=== PATIENT | female | born 2005 | race Caucasian/White ===

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

== ENCOUNTER 2024-03-20 09:50 | Observation (INO) ==
--- NOTE | 2024-03-20 10:09 | Emergency Department Note ---
Impression & Plan Transaminitis Admission ED Provider Note HPI: History obtained from patient. The patient is a 18-year-old female with history of metabolic syndrome, hypertension, ADHD, presents the emergency department with a chief complaint of epigastric abdominal pain that began at 6 AM today. Patient denies any nausea or vomiting. Patient states the pain was acute in onset and she has not had similar pain in the past. Patient states she is currently on Wegovy and recently did have an up titration in her dose. On arrival here to the ED the patient is hypertensive but otherwise hemodynamically stable. Patient does note that she had a ultrasound performed of her gallbladder last month through [facility] that showed evidence of gallstones. ROS: - Per HPI Differential Diagnosis: Acute cholecystitis, choledocholithiasis, acute gastritis, acute pancreatitis, acute appendicitis, viral gastroenteritis, amongst other potential pathologies. *Outpatient medications and allergy history reviewed. PE: General: Alert, morbidly obese HEENT: Normocephalic, trachea midline Eyes: Extraocular eye movement is intact, no scleral erythema Pulmonary: Clear to auscultation bilaterally, no wheezing Cardio: Regular rate and rhythm GI: Abdomen is soft to palpation, there is moderate tenderness in the epigastric area to palpation without guarding or rigidity : No suprapubic tenderness MSK: No evidence of trauma or malformation of the extremities, no edema Skin: No evidence of rash Neuro: Alert, no focal deficits Psychiatric: Cooperative INDEPENDENT INTERPRETATIONS: case monitor: (As interpreted by myself): - An order was placed for continuous cardiac monitoring - Patient was noted to be in sinus rhythm with rate of 90 Interventions provided in ED: -IV morphine, IV Zofran Medical Decision Making: IV was established and lab work obtained, patient was placed on quality assurance monitor body. Lab work shows no leukocytosis, hemoglobin is normal, platelet count is normal, CMP does not show any evidence of any critical electrolyte abnormalities, bilirubin is elevated at 1.3 and there is a transaminitis with AST of 218, ALT of 157, and alk phos at 109. Lipase is noted to be normal. Urinalysis is nonspecific for infection. CT imaging of the abdomen pelvis was obtained and shows questionable acute cholecystitis. General surgery was contacted and the case was discussed with the on-call midlevel provider, Prema Olivas PA-C, and patient was evaluated at the bedside by Dr. Tripp Nava. Following discussion with general surgery, the patient will be admitted to the medicine service for further workup and to determine whether or not operative intervention will be required. There is no biliary ductal dilatation noted on CT imaging. General surgery will order an ultrasound, they requested admission to the medicine service and therefore case was discussed with Dr. Johnson. Patient was placed for admission in stable condition for further care. Consultants/Discussions held with other healthcare providers: -Dr. Johnson, Hospitalist -Dr. Tripp Nava, General Surgery Disposition discussion held by myself with: -Patient Diagnosis: 1. Epigastric abdominal pain, acute 2. Transaminitis, acute 3. Elevated bilirubin, acute 4. 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 Social History Smoking Status: Never smoker Second Hand Exposure: Yes (mom smokes); Do You Dip or Chew Tobacco: No; Hx Alcohol Use: No Hx Substance Use: No Preferred Language: Salvadorean Communication Ability: Effective Visual Impairment: No Limitations Hearing Ability: Normal Bed Manager Required: No marital status: Single Current Living Situation: Family Current Living Situation Comment: mom/dad/ older brother Feels Safe at Home: Yes Childhood Exposure to Second-Hand Smoke: No Dental Care, Regularly: Yes Seatbelt Use: always Sunscreen Use: Yes Allergies Allergies Allergy/AdvReac Type Severity Reaction Status Date / Time No Known Allergies Allergy Verified 03/20/24 12:16 Home Meds Home Medications Medication Instructions Recorded Confirmed apple cider vinegar 500 mg tablet 500 mg PO DAILY 07/23/20 03/20/24 clonidine HCl 0.2 mg tablet 0.2 mg PO DAILY 03/20/24 03/20/24 ergocalciferol (vitamin D2) 1,250 50,000 unit PO WK 03/20/24 03/20/24 mcg (50,000 unit) capsule ibuprofen 200 mg tablet 200 mg PO Q6H PRN Pain 03/20/24 03/20/24 levothyroxine 100 mcg tablet 100 mcg PO DAILY 03/20/24 03/20/24 multivitamin 1 tab PO DAILY 03/20/24 03/20/24 norethindrone (contraceptive) 0.35 0.35 mg PO DAILY 03/20/24 03/20/24 mg tablet semaglutide (weight loss) 0.5 0.5 mg subcut WK 03/20/24 03/20/24 mg/0.5 mL subcutaneous pen injector (Wegovy) Results & Data (ED) Vital Signs Vital Signs - 24 hr 03/20/24 09:51 03/20/24 10:39 03/20/24 11:45 Temperature 36.6 C Temperature Source Temporal Artery Scan Pulse Rate 87 86 Pulse Rate [Finger] 90 Respiratory Rate 18 17 18 Respiratory Effort / Characteristics Non-Labored Respiratory Depth Normal Respiratory Pattern Regular Blood Pressure 185/97 H Blood Pressure [Left Arm] 180/93 H Blood Pressure Mean 126 Blood Pressure Mean [Left Arm] 122 Blood Pressure Position [Left Arm] Sitting Pulse Oximetry 99 99 98 Oxygen Delivery Method Room Air Room Air Sepsis Recent Fever Within 48 Hours No Sepsis New/Unexplained Change in Mental Status N/A Sepsis Action Taken by Nursing No Action Required 03/20/24 13:06 Temperature Temperature Source Pulse Rate 88 Pulse Rate [Finger] Respiratory Rate Respiratory Effort / Characteristics Respiratory Depth Respiratory Pattern Blood Pressure Blood Pressure [Left Arm] Blood Pressure Mean Blood Pressure Mean [Left Arm] Blood Pressure Position [Left Arm] Pulse Oximetry Oxygen Delivery Method Sepsis Recent Fever Within 48 Hours Sepsis New/Unexplained Change in Mental Status Sepsis Action Taken by Nursing Laboratory Data 03/20/24 10:31 03/20/24 10:31 Lab Results 03/20/24 03/20/24 Range/Units 10:31 10:58 WBC 10.75 (4.8-10.8) K/ul RBC 4.63 (4.20-5.40) M/uL Hgb 14.5 (12.0-16.0) g/dl Hct 42.4 (37.0-47.0) % MCV 91.6 (80.0-100.0) fL MCH 31.3 (25.0-34.0) pg MCHC 34.2 (32.0-36.0) g/dL RDW Std Deviation 41.4 (36.4-46.3) fL RDW Coeff of Saritha 12.4 (11.5-14.5) % Plt Count 273 (130-400) K/uL MPV 10.6 (9.4-12.4) fL Immature Gran % (Auto) 0.2 % Neut % (Auto) 83.9 % Lymph % (Auto) 10.9 % Woods % (Auto) 4.5 % Eos % (Auto) 0.2 % Baso % (Auto) 0.3 % Neut # (Auto) 9.03 H (1.40-6.50) K/uL Lymph # (Auto) 1.17 L (1.20-3.40) K/uL Woods # (Auto) 0.48 (0.11-0.59) K/uL Eos # (Auto) 0.02 (0.00-0.50) K/uL Baso # (Auto) 0.03 (0.00-0.20) K/uL Immature Gran # (Auto) 0.02 (0.01-0.20) K/uL Sodium 142 (136-145) mmol/L Potassium 3.7 (3.5-5.1) mmol/L Chloride 105 (98-107) mmol/L Carbon Dioxide 27 (21-32) mmol/L Anion Gap 10 (3-11) BUN 9 (6-23) mg/dl Creatinine 0.74 (0.6-1.2) mg/dl Est Cr Clr Drug Dosing 210.8 ml/min eGFR 119.45 BUN/Creatinine Ratio 12.2 (10-20) Glucose 150 H (70-99(Fasting)) mg/dl Calcium 10.0 (8.6-10.3) mg/dl Total Bilirubin 1.3 H (0.2-1.0) mg/dl AST 218 H (13-39) U/L ALT 157 H (7-52) U/L Alkaline Phosphatase 109 H (34-104) U/L Total Protein 8.5 H (6.0-8.3) gm/dl Albumin 4.7 (3.4-5.0) gm/dl Globulin 3.8 (2.5-4.0) gm/dl Albumin/Globulin Ratio 1.2 (0.9-2) Lipase 18 (11-82) U/L Urine Color Dark Yellow Urine Appearance Cloudy A (Clear) Urine pH 6.0 (4.5-7.5) Ur Specific [place] 1.025 (1.000-1.030) Urine Protein Negative (Negative) Urine Glucose (UA) Negative (Negative) Urine Ketones Trace H (Negative) Urine Blood Negative (Negative) Urine Nitrite Negative (Negative) Urine Bilirubin 1+ H (Negative) Urine Urobilinogen Positive H (Negative) Ur Leukocyte Esterase 1+ H (Negative) Urine WBC (Auto) 6-10 H (0-5) /hpf Urine RBC (Auto) 0-2 (0-2) /hpf U Hyaline Cast (Auto) 0-2 (0-2) /lpf U Epithel Cells (Auto) 6-10 H (0-2) /hpf Urine Bacteria (Auto) 2+ H (None Seen) Administered Medications Discontinued Medications Sodium Chloride (Nss) 1,000 mls @ 999 mls/hr IV .Q1H1M STA Stop: 03/20/24 11:07 Last Infusion: 03/20/24 11:48 Dose: Infused Documented By: Admin: 03/20/24 10:35 Dose: 999 mls/hr Documented By: LYNDSEY Ioversol (Optiray 320 100ml) 94 ml IV ONCE ONE Stop: 03/20/24 11:15 Last Admin: 03/20/24 11:14 Dose: 94 ml Documented By: ZAIRE Morphine Sulfate (Morphine Sulfate 4 Mg/Ml 1 Ml Carp\Vial) 4 mg IV NOW STA Stop: 03/20/24 11:36 Last Admin: 03/20/24 11:41 Dose: 4 mg Documented By: CEF Ondansetron HCl (Ondansetron Inj 2 Mg/Ml 2 Ml Vial) 4 mg IV NOW STA Stop: 03/20/24 11:36 Last Admin: 03/20/24 11:40 Dose: 4 mg Documented By: CEF Imaging Data Radiologist's Impression: Abdomen/Pelvis CT 03/20/24 10:07 CT OF THE ABDOMEN AND PELVIS WITH CONTRAST CLINICAL HISTORY: Epigastric abdominal pain. COMPARISON STUDY: Right upper quadrant ultrasound January 16, 2019. KUB July 22, 2021. TECHNIQUE: Following IV administration of 94 mL of Optiray, axial images of the abdomen and pelvis were obtained from the lung bases to the proximal femurs. Images were reviewed in the axial, sagittal, and coronal planes. IV contrast was administered without complication. Automated exposure control was utilized for the study. A dose lowering technique was utilized adhering to the principles of ALARA. CT DOSE: 1774.75 mGy.cm FINDINGS: Lung bases are unremarkable. No pneumatosis, free air or portal venous gas is present. There is probable hepatic steatosis. There is no biliary or pancreatic ductal dilatation. Spleen and adrenal glands, kidneys and pancreas are unremarkable. There is no hydronephrosis. The gallbladder is mildly distended. There is mild pericholecystic stranding. The appendix is normal. The caliber and wall thickness of small and large bowel are normal. Major vasculature is patent. There is no lymphadenopathy. The ovaries are not significantly enlarged. Major vasculature is patent. IMPRESSION: 1. Mild gallbladder distention and mild pericholecystic stranding. Acute cholecystitis cannot be excluded. Right upper quadrant ultrasound is recommended for further evaluation. 2. Normal appendix. No bowel obstruction. No bowel wall thickening. ACT 112: Negative or not required by law. Electronically signed by: Renny Nuñez M.D. 03/20/2024 11:44 AM Liver Ultrasound 03/20/24 12:09 US liver CLINICAL HISTORY: eval cholecystitis COMPARISON STUDY: Right upper quadrant ultrasound January 16, 2019. CT of the abdomen and pelvis March 20, 2024. TECHNIQUE: Sonography of the right upper quadrant was performed. FINDINGS: Hepatic echogenicity is increased. No hepatic lesions are identified. The gallbladder is mildly distended. There are multiple small gallstones within the gallbladder. No gallbladder wall thickening. Sonographic Pope sign could not be assessed for given pain medication administration. Common bile duct is mildly dilated, measuring 8 mm in caliber. No common bile duct calculi are identified although these may be occult by sonography. Pancreatic body is normal. Head and tail are obscured. There is no right hydronephrosis. IMPRESSION: 1. Cholelithiasis and mild gallbladder distention. Unable to assess for sonographic Pope sign. Acute cholecystitis remains within the differential. A nuclear medicine hepatobiliary scan could be obtained. 2. Mild dilatation of the common bile duct. No common bile duct calculi identified although these may be occult by sonography. Correlation with obstructive liver function tests is recommended. 3. Hepatic steatosis. ACT 112: Negative or not required by law. Electronically signed by: Renny Nuñez M.D. 03/20/2024 12:57 PM Discharge Plan Visit Data Chief Complaint: Abdominal Pain Stated Complaint: SEVERE ABD PAIN ED Provider: Nelson Mendoza Discharge Problem: Transaminitis Forms Stand Alone Forms: [facility] [employer] Prescriptions Prescriptions: No Action apple cider vinegar 500 mg tablet 500 mg PO DAILY multivitamin Tablet 1 tab PO DAILY levothyroxine 100 mcg tablet 100 mcg PO DAILY clonidine HCl 0.2 mg tablet 0.2 mg PO DAILY ibuprofen 200 mg Tablet 200 mg PO Q6H PRN (Reason: Pain) ergocalciferol (vitamin D2) 1,250 mcg (50,000 unit) capsule 50,000 unit PO WK Rx Instructions: Mondays norethindrone (contraceptive) 0.35 mg tablet 0.35 mg PO DAILY Wegovy 0.5 mg/0.5 mL pen injector 0.5 mg SUBCUT WK Rx Instructions: Referrals Referrals: Vivienne Orosco MD [Physician] -
[2024-03-20] MEDS: SODIUM CHLORIDE 0.9% 1,000 ML IV STA (10:35)
[2024-03-20 10:51] LABS: Basophils # (auto) 0.03 K/uL (0.00-0.20); Basophils % (auto) 0.3 %; Eosinophils # (auto) 0.02 K/uL (0.00-0.50); Eosinophils % (auto) 0.2 %; Hematocrit (blood only) 42.4 % (37.0-47.0); Hemoglobin 14.5 g/dl (12.0-16.0); Immature Granulocytes # (auto) 0.02 K/uL (0.01-0.20); Immature Granulocytes % (auto) 0.2 %; Lymphocytes # (auto) 1.17 K/uL (1.20-3.40); Lymphocytes % (auto) 10.9 %; Mean Corpuscular Hemoglobin 31.3 pg (25.0-34.0); Mean Corpuscular Hgb Conc 34.2 g/dL (32.0-36.0); Mean Corpuscular Volume 91.6 fL (80.0-100.0); Mean Platelet Volume 10.6 fL (9.4-12.4); Monocytes # (auto) 0.48 K/uL (0.11-0.59); Monocytes % (auto) 4.5 %; Neutrophils # (auto) 9.03 K/uL (1.40-6.50); Neutrophils % (auto) 83.9 %; Platelet Count 273 K/uL (130-400); RDW Coefficient of Variation 12.4 % (11.5-14.5); RDW Standard Deviation 41.4 fL (36.4-46.3); Red Blood Count 4.63 M/uL (4.20-5.40); White Blood Count 10.75 K/ul (4.8-10.8)
[2024-03-20 11:08] LABS: Albumin Globulin Ratio 1.2 (0.9-2); Albumin Level 4.7 gm/dl (3.4-5.0); BUN Creatinine Ratio 12.2 (10-20); Bilirubin,Total 1.3 mg/dl (0.2-1.0); Creatinine Clr Calc Pharmacy 210.8 ml/min; Globulin 3.8 gm/dl (2.5-4.0); Potassium 3.7 mmol/L (3.5-5.1); Total Protein 8.5 gm/dl (6.0-8.3)
[2024-03-20 11:12] LABS: Appearance Urine Cloudy (Clear); Bacteria Urine Automated 2+ (None Seen); Bilirubin Urine 1+ (Negative); Blood Urine Negative (Negative); Cast Urine Automated 0-2 /lpf (0-2); Color Urine Dark Yellow; Glucose Urine UA Negative (Negative); Ketones Urine Trace (Negative); Leukocyte Esterase Urine 1+ (Negative); Nitrite Urine Negative (Negative); Protein Urine Negative (Negative); RBC Urine Automated 0-2 /hpf (0-2); Specific Gravity Urine 1.025 (1.000-1.030); Urobilinogen Urine Positive (Negative)
[2024-03-20] MEDS: OPTIRAY 320 100ml IV ONE (11:14)
[2024-03-20] MEDS: ONDANSETRON INJ 2 MG/ML 2 ML VIAL IV STA (11:40)
[2024-03-20] MEDS: MoRPHine SULFATE 4 MG/ML 1 ML CARP\\VIAL IV STA (11:41)
--- NOTE | 2024-03-20 11:45 | CT Scan Report ---
CT OF THE ABDOMEN AND PELVIS WITH CONTRAST CLINICAL HISTORY: Epigastric abdominal pain. COMPARISON STUDY: Right upper quadrant ultrasound January 16, 2019. KUB July 22, 2021. TECHNIQUE: Following IV administration of 94 mL of Optiray, axial images of the abdomen and pelvis we re obtained from the lung bases to the proximal femurs. Images were reviewed in the axial, sagittal, and coronal planes. IV contrast was administered without complication. Automated exposure control wa s utilized for the study. A dose lowering technique was utilized adhering to the principles of ALARA . CT DOSE: 1774.75 mGy.cm FINDINGS: Lung bases are unremarkable. No pneumatosis, free air or portal venous gas is present. Ther e is probable hepatic steatosis. There is no biliary or pancreatic ductal dilatation. Spleen and adre nal glands, kidneys and pancreas are unremarkable. There is no hydronephrosis. The gallbladder is mil dly distended. There is mild pericholecystic stranding. The appendix is normal. The caliber and wall thickness of small and large bowel are normal. Major vasculature is patent. There is no lymphadenopat hy. The ovaries are not significantly enlarged. Major vasculature is patent. IMPRESSION: 1. Mild gallbladder distention and mild pericholecystic stranding. Acute cholecystitis cannot be excl uded. Right upper quadrant ultrasound is recommended for further evaluation. 2. Normal appendix. No bowel obstruction. No bowel wall thickening. ACT 112: Negative or not required by law. Electronically signed by: Renny Nuñez M.D. 03/20/2024 11:44 AM
--- NOTE | 2024-03-20 12:36 | Surgery Consultation ---
Date of Consultation March 20, 2024 Assessment & Plan (1) Epigastric pain: This is a 18yF with a PMH of metabolic syndrome, depression/anxiety, ADHD, HTN, Morbid obesity who presents to the [facility] ED on 03/20/24 with complaints of abdominal pain in the upper abdomen. This was associated with bloating. She ate mozzarella sticks at 2am and her pain started at 6am. She has had no nausea/vomiting associated with this. In the ER she underwent a CT a/p given her symptoms that showed mild gallbladder distention and mild pericholecystic stranding. Acute cholecystitis cannot be excluded. Right upper quadrant ultrasound is recommended for further evaluation. The patient states she is going to undergo weight loss surgery in the next 2-3 months and she was told during part of her workup she underwent a RUQ US that did confirm gallstones. She says there is the possibility that they may be able to remove it at the same time as her weight loss surgery. Otherwise patient does report she is on wegovy for weight loss. She feels bloated. She never had any abdominal surgery before. Today's blood work shows a normal WBC of 10, Hbg 14.5, Cr 0.7. She has some elevation in her LFTs at Tb 1.3, AST 218, ALT 157, Alkp 109. Vitals are stable with some HTN noted with SBP's 180s. On exam patient is resting comfortably. Abdomen soft and non tender. Patient did receive morphine with improvement in her symptoms. Given elevation of LFTs we do recommend patient be admitted to trend her values to ensure they don't continue to uptrend. In addition we recommended obtaining a RUQ US in the meantime which recently resulted as " cholelithiasis and mild gallbladder distention. Unable to assess for sonographic Pope sign. Acute cholecystitis remains within the differential. Mild dilatation of the common bile duct. No common bile duct calculi identified although these may be occult by sonography. Correlation with obstructive liver function tests is recommended." Given these findings we will continue workup with an MRCP to further evaluate for choledocholithiasis. No plans for acute surgical intervention today as workup continues. If MRCP is + for CBD stones she will need to be transferred to center with GI providers who perform ERCP. If negative MRCP and LFT's downtrend tomorrow and patient is feeling better, we could consider discharging patient on a low fat modified diet with close follow up with her bariatric surgeon to consider cholecystectomy at the same time as her weight loss surgery if possible. If not may f/u with us as outpatient. We will follow. Patient seen/examined with Dr. Castillo Supervising Physician Co-Signing Physician Notes I saw and examined this patient with the surgical team for this consultation and I agree with the plan History of Present Illness History of Present Illness This is a 18yF with a PMH of metabolic syndrome, depression/anxiety, ADHD, HTN, Morbid obesity who presents to the [facility] ED on 03/20/24 with complaints of abdominal pain in the upper abdomen. This was associated with bloating. She ate mozzarella sticks at 2am and her pain started at 6am. She has had no nausea/vomiting associated with this. In the ER she underwent a CT a/p given her symptoms that showed mild gallbladder distention and mild pericholecystic stranding. Acute cholecystitis cannot be excluded. Right upper quadrant ultrasound is recommended for further evaluation. The patient states she is going to undergo weight loss surgery in the next 2-3 months and she was told during part of her workup she underwent a RUQ US that did confirm gallstones. She says there is the possibility that they may be able to remove it at the same time as her weight loss surgery. Otherwise patient does report she is on wegovy for weight loss. She feels bloated. She never had any abdominal surgery before. Patient states after receiving morphine she feels much better, but is concerned about the pain returning. Allergies Allergy/AdvReac Type Severity Reaction Status Date / Time No Known Allergies Allergy Verified 03/20/24 12:16 Home Medications Medication Instructions Recorded Confirmed Type apple cider vinegar 500 mg tablet 500 mg PO DAILY 07/23/20 03/20/24 History clonidine HCl 0.2 mg tablet 0.2 mg PO DAILY 03/20/24 03/20/24 History ergocalciferol (vitamin D2) 1,250 50,000 unit PO WK 03/20/24 03/20/24 History mcg (50,000 unit) capsule ibuprofen 200 mg tablet 200 mg PO Q6H PRN Pain 03/20/24 03/20/24 History levothyroxine 100 mcg tablet 100 mcg PO DAILY 03/20/24 03/20/24 History multivitamin 1 tab PO DAILY 03/20/24 03/20/24 History norethindrone (contraceptive) 0.35 0.35 mg PO DAILY 03/20/24 03/20/24 History mg tablet semaglutide (weight loss) 0.5 0.5 mg subcut WK 03/20/24 03/20/24 History mg/0.5 mL subcutaneous pen injector (Brown) Patient History Medical History Hemorrhoid Avoid straining and return if continued blood Constipation Gastroesophageal reflux disease Surgical History No history of previous surgery Family History Mother Bipolar disorder ADHD Father No problems noted. Social History Smoking Status: Never smoker Second Hand Exposure: Yes (mom smokes); Do You Dip or Chew Tobacco: No; Hx Alcohol Use: No Hx Substance Use: No Preferred Language: Vincentian Communication Ability: Effective Visual Impairment: No Limitations Hearing Ability: Normal Supply Planner Required: No Beliefs That Will Affect Care: None marital status: Single Current Living Situation: Parent and Family Current Living Situation Comment: mom/dad/ older brother Other Information That Helps Us Care for You: No Feels Safe at Home: Yes Safety Concerns: Feels Safe At This Time Childhood Exposure to Second-Hand Smoke: No Dental Care, Regularly: Yes Seatbelt Use: always Sunscreen Use: Yes Assistive Devices: None Review of Systems Constitutional: no fever and no chills Respiratory: no dyspnea Cardiovascular: no chest pain Gastrointestinal: + abdominal pain (upper abdominal discom fort) and + bloating; no nausea and no vomiting Physical Exam Physical Exam: awake/alert, no distress Constitutional: + morbidly obese, cooperative and comfor table; no acute distress Respiratory: normal respiratory effort Gastrointestinal (Abdomen): Inspection/Auscultation: abdomen not distended Percussion/Palpation: abdomen soft; abdomen nontender obese abdomen Results & Data Vital Signs (Past 12 Hours) Vital Signs Temp Pulse Pulse Resp BP BP Pulse Ox 03/20/24 11:45 90 18 180/93 H 98 03/20/24 10:39 86 17 99 03/20/24 09:51 97.9 F 87 18 185/97 H 99 O2 Del Method 03/20/24 11:45 Room Air 03/20/24 10:39 Room Air 03/20/24 09:[address] OF THE ABDOMEN AND PELVIS WITH CONTRAST CLINICAL HISTORY: Epigastric abdominal pain. COMPARISON STUDY: Right upper quadrant ultrasound January 16, 2019. KUB July 22, 2021. TECHNIQUE: Following IV administration of 94 mL of Optiray, axial images of the abdomen and pelvis were obtained from the lung bases to the proximal femurs. Images were reviewed in the axial, sagittal, and coronal planes. IV contrast was administered without complication. Automated exposure control was utilized for the study. A dose lowering technique was utilized adhering to the principles of ALARA. CT DOSE: 1774.75 mGy.cm FINDINGS: Lung bases are unremarkable. No pneumatosis, free air or portal venous gas is present. There is probable hepatic steatosis. There is no biliary or pancreatic ductal dilatation. Spleen and adrenal glands, kidneys and pancreas are unremarkable. There is no hydronephrosis. The gallbladder is mildly distended. There is mild pericholecystic stranding. The appendix is normal. The caliber and wall thickness of small and large bowel are normal. Major vasculature is patent. There is no lymphadenopathy. The ovaries are not significantly enlarged. Major vasculature is patent. IMPRESSION: 1. Mild gallbladder distention and mild pericholecystic stranding. Acute cholecystitis cannot be excluded. Right upper quadrant ultrasound is recommended for further evaluation. 2. Normal appendix. No bowel obstruction. No bowel wall thickening. ACT 112: Negative or not required by law. Electronically signed by: Renny Nuñez M.D. 03/20/2024 11:44 AM US liver CLINICAL HISTORY: eval cholecystitis COMPARISON STUDY: Right upper quadrant ultrasound January 16, 2019. CT of the abdomen and pelvis March 20, 2024. TECHNIQUE: Sonography of the right upper quadrant was performed. FINDINGS: Hepatic echogenicity is increased. No hepatic lesions are identified. The gallbladder is mildly distended. There are multiple small gallstones within the gallbladder. No gallbladder wall thickening. Sonographic Pope sign could not be assessed for given pain medication administration. Common bile duct is mildly dilated, measuring 8 mm in caliber. No common bile duct calculi are identified although these may be occult by sonography. Pancreatic body is normal. Head and tail are obscured. There is no right hydronephrosis. IMPRESSION: 1. Cholelithiasis and mild gallbladder distention. Unable to assess for sonographic Pope sign. Acute cholecystitis remains within the differential. A nuclear medicine hepatobiliary scan could be obtained. 2. Mild dilatation of the common bile duct. No common bile duct calculi identified although these may be occult by sonography. Correlation with obstructive liver function tests is recommended. 3. Hepatic steatosis. ACT 112: Negative or not required by law. Electronically signed by: Renny Nuñez M.D. 03/20/2024 12:57 PM PG Care Time/CCT Total # of Minutes Spent Total Time Spent with Patient: Total time spent is greater than 50% in coordination of care (as documented) at patient's floor/unit and/or counseling patient: Coding Level of Care Code 53928 OFFICE CONSULT LVL 4/40M Diagnoses Epigastric pain R10.13
--- NOTE | 2024-03-20 13:00 | Ultrasound Report ---
US liver CLINICAL HISTORY: eval cholecystitis COMPARISON STUDY: Right upper quadrant ultrasound January 16, 2019. CT of the abdomen and pelvis Octo 2023. TECHNIQUE: Sonography of the right upper quadrant was performed. FINDINGS: Hepatic echogenicity is increased. No hepatic lesions are identified. The gallbladder is mi ldly distended. There are multiple small gallstones within the gallbladder. No gallbladder wall thick ening. Sonographic Pope sign could not be assessed for given pain medication administration. Common bile duct is mildly dilated, measuring 8 mm in caliber. No common bile duct calculi are identified a lthough these may be occult by sonography. Pancreatic body is normal. Head and tail are obscured. The re is no right hydronephrosis. IMPRESSION: 1. Cholelithiasis and mild gallbladder distention. Unable to assess for sonographic Pope sign. Acut e cholecystitis remains within the differential. A nuclear medicine hepatobiliary scan could be obtai immanuel. 2. Mild dilatation of the common bile duct. No common bile duct calculi identified although these may be occult by sonography. Correlation with obstructive liver function tests is recommended. 3. Hepatic steatosis. ACT 112: Negative or not required by law. Electronically signed by: Renny Nuñez M.D. 03/20/2024 12:57 PM
--- OUTSIDE RECORDS SUMMARY | 2024-03-20 13:04 | External Medical Summary | Summary of Care ---
Author Name Unknown Organization [facility] Address [address] [place] [address] Phone [phone] Care Team Providers Care Radius Corner Machine Operator Name Role Phone Khoa Cruz MD Primary Care Provider [phone] Reason for Visit * Reason Comments Outpatient Testing Encounter Details Date Type Department Care Team ([facility] st Contact Info) Description 03/11/2024 3:50 PM EDT Laboratory Laboratory, [facility] [address] [place] [address] [facility] [address] [place] [address] Morbid obesity due to excess calories (HCC) Allergies Active Allergy Reactions Criticality Noted Date Comments Pollen 11/02/2023 Rhinitis documented as of this encounter (statuses as of 03/11/2024) Medications Medication Sig Dispensed Refills Start Date End Date Status cloNIDine HCl 0.2 MG Oral Tablet (Catapres) Take 1 Tablet by mouth at bedtime. 09/13/2023 Active Levothyroxine Sodium 100 MCG Oral Tablet (Levoxyl)Indications:H ypothyroidism, unspecified type Take 1 Tablet by mouth daily first thing in the morning. 90 Tablet 3 12/11/2023 Active Wegovy 0.5 MG/0.5ML Subcutaneous Solution Auto-injector (Semaglutide-Weight Management)Indications :Morbid obesity due to excess calories (HCC) Inject 0.5 mg under the skin once a week. 2 mL 5 01/15/2024 Active Norethindrone 0.35 MG Oral TabletIndications:PCOS (polycystic ovarian syndrome) Take 1 Tablet by mouth in the morning. 84 Tablet 3 02/29/2024 Active Vitamin D (Ergocalciferol) 1.25 MG (43253 UT) Oral Capsule (Drisdol)Indications:V itamin D deficiency Take 1 Capsule by mouth once a week. 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 Anxiety and depression 08/18/2021 Binge eating disorder 08/18/2021 Hypertriglyceridemia 12/21/2017 ADHD (attention deficit hype ractivity disorder), inattentive type 08/31/2015 HTN, age 0-18 08/24/2015 documented as of this encounter (statuses as of 03/11/2024) Resolved Problems Problem Noted Date Diagnosed Date Resolved Date BMI 50.0-59.9, adult 08/18/2021 023 Overview: Per Obesity protocol Elevated BP 08/31/2015 08/31/2015 documented as of this encounter (statuses as of 03/11/2024) Immunizations Name Administration Dates Next Due DTaP Dipth/Tet/Acell Pertussis (Infanrix), Peds 11/10/2009,02/14/2006,03/02/2005,12/21,2004 H1N1 2009 Influenza, IM 07/16/2009 HIB PRP-OMP, 3 dose (Pedvax) 08/16/2005,12/22/19 05,2004 HPV Vaccine, 9-Valent 06/25/2018,02/18/2016 Hepatitis A Vaccine 08/14/2006,11/14/2005 Hepatitis B, 0-19 yrs 08/16/2005,2004,07/20 IPV - Polio Virus Vaccine (Inact) 2009,11/14/2005,2004,10/13 MMR - Measles/Mumps/Rubella Vaccine 11/10/2009,0 08/16/2005 Meningococcal MCV4O Conjugat e Vaccine (Menveo) 08/18/2021 Meningococcal MCV4P Conjugat e Vaccine (Menactra) 02/18/2016 PPD 09/22/2022,09/13/2022 Pneumococcal Conjugate Vacci ne, 7 Valent 08/16/2005,03/02/2005,2004,10/13 Seasonal Influenza Virus Vac cine, Unspecified Formulation 02/27/2022,04/14/2020,02/27/2019,04/03,03/28/2017,02/18/2016,03/16/2015 ,03/28/2012,03/01/2011,02/25/2010,12/2009,07/16/2009,02/09/2009, 8,02/20/2007,04/09/2006,08/16/2005,06/2004,03/02/2005 Seasonal Influenza, PF, 6 M & above, IM , (FluLaval or Fluzone) 02/13/2023,02/27/2022,02/18/2021 Seasonal Influenza, Trivalen t, (IIV3), PF, (Fluzone) 02/29/2024 TDAP, Age 7 and older, IM (Adacel) 02/18/2016 Varicella Vaccine (Chicken Pox) 11/10/2009,08/16 documented as of this encounter Social History Tobacco Use Types Packs/Day Years Used Date Smoking Tobacco: Never Smokeless Tobacco: Never Alcohol Use Standard Drinks/Week Comments Never 0 (1 standard drink = 0.6 oz pur e alcohol) PHQ-2 Answer Date Recorded PHQ Adult Total Score 9 06/04/2023 Hunger Vital Sign Answer Date Recorded Within the past 12 months, y ou worried that your food would run out before you got the money to buy more. Never true 03/04/20 24 Within the past 12 months, t he food you bought just didn't last and you didn't have money to get more. Never true 03/04/2024 Childcare Answer Date Recorded Do you feel overwhelmed with taking care of a child, family member or friend? No 03/04/2024 Does your family need help f inding childcare? (Household - for ages 0-17 years) Not on file 03/04/2024 Clothing Answer Date Recorded Have you been unable to get clothing when it was really needed? No 03/04/2024 Is your family able to get c lothes or diapers when needed? (Household - for ages 0-17 years) Not on file 03/04/2024 Personal Safety Answer Date Recorded Do you feel unsafe or have concerns for your saf ety? No 03/04/2024 Do you have concerns for you r family's safety? (Household - for ages 0-17 years) Not on file 03/04/2024 Utilities Answer Date Recorded Do you have trouble paying y our heating, water, or electric bill? No 03/04/2024 Is your family able to pay t he heat, water, or electric bill? (Household - for ages 0-17 years) Not on file 03/04/2024 Does your family have access to good internet? (Household - for ages 0-17 years) Not on file 03/04/2024 Employment Status Answer Date Recorded Are you unemployed or without regular income? Ye s 03/04/2024 Does the household have a re gular source of income? (Household - for ages 0-17 years) Not on file 03/04/2024 Social Connections Answer Date Recorded How often do you feel lonely or isolated from th ose around you? Rarely 03/04/2024 Financial Resource Strain Answer Date R ecorded Do you have any trouble payi ng for your medications, or do you think you might in the future? No 03/04/2024 Does your family have troubl e paying for medicine? (Household - for ages 0-17 years) Not on file 03/04/2024 Transportation Needs Answer Date Record ed READ ONLY Do you have troubl e getting a ride to medical visits or work? Never True 03/04/2024 Does your family have a hard time getting a ride to doctors visits? (Household - for ages 0-17 years) Not on file 03/04/2024 Has lack of transportation k ept you from medical appointments, meetings, work, or from getting things needed for daily living? Check all that apply. No 03/04/2024 Do you (or your family) have trouble finding or paying for a ride (transportation)? (Household - for ages 0-17 years) Not on file 03/04/2024 Housing Stability Answer Date Recorded Do you currently live in a s helter or have no steady place to sleep at night? No 03/04/2024 READ ONLY Do you think you a re at risk of becoming homeless? No 03/04/2024 Does your family worry about paying for your home or becoming homeless? (Household - for ages 0-17 years) Not on file 1 Are you homeless or worried that you might be in the future? No 03/04/2024 Are you (or your family) purnima eless or worried that you might be in the future? (Household - for ages 0-17 years) Not on file Food Insecurity Answer Date Recorded Do you need food for this week? No 03/04/2024 Are you able to get enough f ood for your family? (Household - for ages 0-17 years) Not on file 03/04/2024 Does your family need food t his week? (Household - for ages 0-17 years) Not on file 03/04/2024 Do you always have enough fo od for your family? (Household - for ages 0-17 years) Not on file 03/04/2024 Sex and Gender Information Value Date Recorded Sex Assigned at Female 06/04/2023 11:42 AM EST Gender Identity Female 06/04/2023 11:42 AM EST Sexual Orientation Straight 06/04/2023 11 :42 AM EST Job Start Date Occupation Industry Not on file Not on file Not on file documented as of this encounter Functional Status Functional Status Response Date of Assess ment Are you deaf or do you have serious difficulty h earing? No 08/31/2015 Are you blind or do you have serious difficulty seeing, even when wearing glasses? No 08/31/2015 Do you have serious difficul ty walking or climbing stairs? (5 years old or older) No 08/31/2015 Do you have difficulty dress ing or bathing? (5 years old or older) No 08/31/2015 Cognitive Status Response Date of Assessm ent Because of a physical, menta l, or emotional condition, do you have serious difficulty concentrating, remembering, or making decisions? (5 years old or older) No 08/31/2015 documented as of this encounter Plan of Treatment Upcoming Encounters Date Type Department Care Team (Late st Contact Info) Description 04/08/2024 12:00 PM EST Telemedicine Nutrition & Weight Management, [facility] [address] [place] [address] Denae Riley PA-C [address] [place] [phone] 04/08/2024 1:30 PM EST Telemedicine Nutrition & Weight Management, [facility] [address] [place] [id number] [facility], Surgery Class Provider Fabi [address] [place] [phone] 05/20/2024 1:30 PM EST Nutrition Services Nutrition & Weight Management, [facility] [address] [place] [phone] Yomaira Redding RDN [address] [place] [address] 06/16/2024 1:00 PM EST Office Visit [facility] [place] [address] [place] [id number] Khoa Cruz MD [address] [place] [address] 07/24/2024 3:20 PM EST Office Visit [facility] [address] [facility] [place] [phone] Jazmin Chandler DO [address] [place] [id number] Pending Results Name Type Priority Associated Diagnoses Date /Time HELICOBACTER PYLORI ANTIGEN, EIA, STOOL Lab Routine Morbid obesity due to excess calories (HCC) 03/11/2024 3:43 PM EDT Health Maintenance Due Date Last Done Comments COVID-19 Vaccine ( season) 2024 02/22/2021, 01/21/2021 Depression Monitoring 06/04/2024 06/04/2023 Gonorrhea / Chlamydia Screen 12/10/2024 07/24/2022 Postponed from 07/25/2023 (Patient Declined After Education) Hepatitis C Screening 12/10/2024 Postpo immanuel from 2022 (Patient Declined After Education) Yearly Wellness Visit 12/10/2024 12/11/2023 , 09/20/2022, 08/18/2021 GFR 02/25/2025 02/26/2024, 01/20, 01/16/2022, Additional history exists TSH 02/25/2025 02/26/2024, 11/19, 02/13/2023, Additional history exists Albumin/Creatinine Ratio 07/24/2025 07/24/2022 DTap/Tdap Vaccines (7 - Td or Tdap) 02/17/2026 02/18/2016, 11/10/2009, 02/14/2006, Additional history exists Hepatitis B Vaccine Completed 08/16/2005, 2004, 2004 HPV (Gardasil) Vaccine Completed 06/25/2018, 2015 MENINGOCOCCAL (MENACTRA/MENVEO) Completed 08/18/2021, 02/18/2016 Influenza Vaccine (FLU shot) Completed 02/29/2024, 02/13/2023, 02/13/2023, Additional history exists Pneumococcal Vaccine: Pediatrics (0 to 5 Years) and At-Risk Patients (6 to 64 Years) Aged Out No longer eligible based on patient's age to complete this topic documented as of this encounter Medical Devices Not on filedocumented as of this encounter Visit Diagnoses Diagnosis Morbid obesity due to excess calories (HCC) documented in this encounter Care Teams Radius Corner Machine Operator Relationship Specialty Start Date End Date September, Khoa Harrington MD [address] [place] [address] PCP - General Family Medicine 08/30/22 documented as of this encounter
--- OUTSIDE RECORDS SUMMARY | 2024-03-20 13:04 | External Medical Summary | Summary of Care ---
Author Name Unknown Organization [facility] Address [address] [place] [address] Phone [phone] Care Team Providers Care On Site Services Specialist Name Role Phone Khoa Cruz MD Primary Care Provider [phone] Encounter Details Date Type Department Care Team ([facility] Contact Info) Description 03/10/2024 Documentation Psychology [place] [address] [place] [address] Manda Lewis PsyD [address] [place] [address] Allergies Active Allergy Reactions Criticality Noted Date Comments Pollen 11/02/2023 Rhinitis documented as of this encounter (statuses as of 03/18/2024) Medications Medication Sig Dispensed Refills Start Date [...] 02/29/2024 Active Vitamin D (Ergocalciferol) 1.25 MG (27508 UT) Oral Capsule (Drisdol)Indications:V itamin D deficiency Take 1 Capsule by mouth once a week. 8 Capsule 03/03/2024 Active documented as of this encounter (statuses as of 03/18/2024) Active Problems Problem Noted Date Diagnosed Date [...] as of this encounter (statuses as of 03/18/2024) Resolved Problems Problem Noted Date Diagnosed Date Resolved Date BMI 50.0-59.9, adult 08/18/2021 023 Overview: Per Obesity protocol Elevated BP 08/31/2015 08/31/2015 documented as of this encounter (statuses as of 03/18/2024) Immunizations Name Administration Dates Next Due DTaP [...] 03/04/2024 Does the household have a re lar source of income? (Household - for ages [...] No 08/31/2015 documented as of this encounter Progress Notes * Mallory Faye OSA - 03/10/2024 2:08 PM EDT Faxed bariatric questionnaire. Your fax has been successfully sent to [facility] RE: Sarah Sosa at [phone]. 03/10/2024 1:10:36 PM Origin Record documented in this encounter Plan of Treatment Upcoming Encounters Date Type Department Care Team (Late st Contact Info) Description 04/08/2024 12:00 PM EST Telemedicine Nutrition & Weight Management, [facility] [address] [address] Denae Riley PA-C [address] [place] [address] 04/08/2024 1:30 PM EST Telemedicine Nutrition & Weight Management, [facility] [address] [place] [address] [facility], Surgery Class Provider [facility] [address] [address] 05/20/2024 1:30 PM EST Nutrition Services Nutrition & Weight Management, [facility] [address] [address] Yomaira Redding RDN [address] [place] [address] 06/16/2024 1:00 PM EST [facility] [place] [address] [facility] [phone] Khoa Cruz MD [address] [facility] [place] [address] 07/24/2024 3:20 PM EST [facility] [address] [place] [phone] Jazmin Chandler, [address] [place] [address] Health Maintenance Due Date Last Done Comments [...] Not on filedocumented as of this encounter Care Teams On Site Services Specialist Relationship Specialty Start Date End Date September, Khoa Harrington MD [address] [place] [address] PCP - General Family Medicine 08/30/22 documented as of this encounter
--- OUTSIDE RECORDS SUMMARY | 2024-03-20 13:04 | External Medical Summary | Summary of Care ---
Author Name Unknown Organization [facility] Address [address] [place] [address] Phone [phone] Care Team Providers Care Museum Assistant Name Role Phone Khoa Cruz MD Primary Care Provider [phone] Reason for Visit * Reason Onset Date Comments Status Check Patient is here to discuss control- states she is having more acne and facial hair and wonders if its because she is not on bc. Medication Administration 02/29/2024 Flu an d/or Pneumo Inj Encounter Details Date Type Department Care Team (Late st Contact Info) Description 02/29/2024 1:20 PM EDT Office Visit [facility] [address] [place] [address] Khoa Cruz MD [address] [place] [address] PCOS (polycystic ovarian syndrome)*; Body mass index (BMI) of 60.0 to 69.9 in adult (HCC); HTN, age 0-18; Need for prophylactic vaccination and inoculation against influenza Allergies Active Allergy Reactions Criticality Noted Date Comments Pollen 11/02/2023 Rhinitis documented as of this encounter (statuses as of 02/29/2024) Medications Medication Sig Dispensed Refills Start Date [...] the morning. 84 Tablet 3 02/29/2024 Active documented as of this encounter (statuses as of 02/29/2024) Active Problems Problem Noted Date Diagnosed Date [...] as of this encounter (statuses as of 02/29/2024) Resolved Problems Problem Noted Date Diagnosed Date Resolved Date BMI 50.0-59.9, adult 08/18/2021 023 Overview: Per Obesity protocol Elevated BP 08/31/2015 08/31/2015 documented as of this encounter (statuses as of 02/29/2024) Immunizations Name Administration Dates Next Due DTaP [...] the money to buy more. Never true 06/04/19 24 Within the past 12 months, t he food you bought just didn't last and you didn't have money to get more. Never true 06/04/2023 Childcare Answer Date Recorded Do you feel overwhelmed with taking care of a child, family member or friend? No 06/04/2023 Does your family need help f inding childcare? (Household - for ages 0-17 years) Not on file 06/04/2023 Clothing Answer Date Recorded Have you been unable to get clothing when it was really needed? No 06/04/2023 Is your family able to get c lothes or diapers when needed? (Household - for ages 0-17 years) Not on file 06/04/2023 Personal Safety Answer Date Recorded Do you feel unsafe or have concerns for your saf ety? No 06/04/2023 Do you have concerns for you r family's safety? (Household - for ages 0-17 years) Not on file 06/04/2023 Utilities Answer Date Recorded Do you have trouble paying y our heating, water, or electric bill? No 06/04/2023 Is your family able to pay t he heat, water, or electric bill? (Household - for ages 0-17 years) Not on file 06/04/2023 Does your family have access to good internet? (Household - for ages 0-17 years) Not on file 06/04/2023 Employment Status Answer Date Recorded Are you unemployed or without regular income? No 06/04/2023 Does the household have a re gular source of income? (Household - for ages 0-17 years) Not on file 06/04/2023 Social Connections Answer Date Recorded How often do you feel lonely or isolated from th ose around you? Never 06/04/2023 Financial Resource Strain Answer Date R ecorded Do you have any trouble payi ng for your medications, or do you think you might in the future? No 06/04/2023 Does your family have troubl e paying for medicine? (Household - for ages 0-17 years) Not on file 06/04/2023 Transportation Needs Answer Date Record ed READ ONLY Do you have troubl e getting a ride to medical visits or work? Never True 06/04/2023 Does your family have a hard time getting a ride to doctors visits? (Household - for ages 0-17 years) Not on file 06/04/2023 Has lack of transportation k ept you from medical appointments, meetings, work, or from getting things needed for daily living? Check all that apply. (Adult - for ages 18 years and over) Not on file 06/04/2023 Do you (or your family) have trouble finding or paying for a ride (transportation)? (Household - for ages 0-17 years) Not on file 06/04/2023 Housing Stability Answer Date Recorded Do you currently live in a s helter or have no steady place to sleep at night? No 06/04/2023 READ ONLY Do you think you a re at risk of becoming homeless? No 06/04/2023 Does your family worry about paying for your home or becoming homeless? (Household - for ages 0-17 years) Not on file 0 06/04/2023 Are you homeless or worried that you might be in the future? (Adult - for ages 18 years and over) Not on file Are you (or your family) purnima eless or worried that you might be in the future? (Household - for ages 0-17 years) Not on file Food Insecurity Answer Date Recorded Do you need food for this week? No 06/04/2023 Are you able to get enough f ood for your family? (Household - for ages 0-17 years) Not on file 06/04/2023 Does your family need food t his week? (Household - for ages 0-17 years) Not on file 06/04/2023 Do you always have enough fo od for your family? (Household - for ages 0-17 years) Not on file 06/04/2023 Sex and Gender Information Value Date Recorded Sex Assigned at Female 06/04/2023 11:42 AM EST Gender Identity Female 06/04/2023 11:42 AM EST Sexual Orientation Straight 06/04/2023 11 :42 AM EST Job Start Date Occupation Industry Not on file Not on file Not on file documented as of this encounter Last Filed Vital Signs Vital Sign Reading Time Taken Comments Blood Pressure 132/84 02/29/2024 1:24 PM EDT Pulse 77 02/29/2024 1:24 PM EDT Temperature 36.8 C (98.2 F) 02/29/2024 1:24 PM ED T Respiratory Rate 19 02/29/2024 1:24 PM EDT Oxygen Saturation 98% 02/29/2024 1:24 PM EDT Inhaled Oxygen Concentration - - Weight 182 kg (401 lb 3.2 oz) 02/29/2024 1:24 PM EDT Height - - Body Mass Index 62.24 02/26/2024 7:55 AM EDT documented in this encounter Functional Status Functional Status Response [...] as of this encounter Progress Notes * Gala Mckeon LPN - 02/29/2024 3:02 PM EDT The patient has been properly identified by confirmation of name and date of . Pre-Administration Time Out Procedure Performed: Yes Patient Identified (Ask Name/Date of ): Yes Does the patient have a fever greater than 101 degrees today? No Patient allergic to latex? No Has the patient ever fainted after receiving an injection? No VFC Stock: No Immunization(s) verified: Yes, Immunization Name: Flu, VIS Sheet(s) given: Yes Verified Side and Site: Yes Verified Shot(s) with Parent(s)/Patient: Yes * Khoa Cruz MD - 02/29/2024 1:34 PM EDT Images from the original note were not included. Assessment and Plan 1. PCOS (polycystic ovarian syndrome) Patient with hirsutism and irregular periods consistent with PCOS. Discussed risks benefit of use of combined oral contraceptives. At this point given weight and hypertension we think it is beneficial to avoid estrogen containing OCPs and treat with Micronor daily. We did discuss that bariatric surgery and expected weight loss will help with symptoms. Following bariatric surgery it would be recommended to transitioned to an implant or IUD given change in absorption of the stomach. - Norethindrone 0.35 MG Oral Tablet; Take 1 Tablet by mouth in the morning. Dispense: 84 Tablet; Refill: 3 2. Body mass index (BMI) of 60.0 to 69.9 in adult (HCC) BMI 62.24. Following with weight management and planning for gastric bypass surgery in the near future. 3. HTN, age 0-18 Blood pressure at goal today 132/84. 4. Need for prophylactic vaccination and inoculation against influenza - INFLUENZA VAC, TRIVALENT, (IIV3), PF, 0.5 ML (FLUZONE) Wrap-Up Follow up in 3 months. History of Present Illness The patient is a 18-year-old female with past medical history of obesity, depression, ADHD, hypertension who presents for follow up. Patient presents with irregular periods and hirsutism. Concern for PCOS. Patient notes facial hair and significant acne. She notes she previously was on combined oral contraception which was changed to Depo due to risk of blood clot in the setting of obesity and hypertension. Patient was currently following with weight management and is planning on having bariatric surgery - likely a gastric bypass - in June 09, 2023. Physical Exam Vitals: 02/29/24 1324 Temp: 36.8 C (98.2 F) Pulse: 77 Resp: 19 SpO2: 98% BP: 132/84 Physical Exam Physical Exam Vitals reviewed. Constitutional: General: She is not in acute distress. Appearance: She is obese. Pulmonary: Effort: Pulmonary effort is normal. No respiratory distress. Skin: Comments: Facial acne and facial hair noted. Neurological: Mental Status: She is alert. This note has been completed in part utilizing [employer] Speech Voice Recognition Software. Due to technical limitations of the software, grammatical errors, random word insertions, prounoun errors, and incomplete sentences may occur. Any formal questions or concerns about the content, text, or information contained within the body of this dictation should be directly addressed to the provider for clarification. documented in this encounter Nursing Notes * Gala Mckeon LPN - 02/29/2024 1:25 PM EDT The patient has been properly identified by confirmation of name and date of . Chief Complaint Patient presents with Status Check Patient is here to discuss control- states she is having more acne and facial hair and wonders if its because she is not on bc. Medication Administration Flu and/or Pneumo Inj documented in this encounter Plan of Treatment Upcoming Encounters Date Type Department Care Team (Late st Contact Info) Description 03/04/2024 8:00 AM EDT Telemedicine Psychology [place] [address] [phone] Manda Lewis PsyD [address] [phone] 03/04/2024 1:00 PM EDT Imaging Radiology [facility] [address] [place] [address] 04/08/2024 12:00 PM EST Telemedicine Nutrition & Weight Management, [facility] [address] [place] [address] Denae Riley PA-C [address] [place] [address] 04/08/2024 1:30 PM EST Telemedicine Nutrition & Weight Management, [facility] [address] [place] [address] [facility], Surgery Class Provider Fabi [address] [place] [address] 05/20/2024 1:30 PM EST Nutrition Services Nutrition & Weight Management, [facility] [address] [place] [address] Yomaira Redding RDN [address] [place] [address] 06/16/2024 1:00 PM EST Office [facility] [place] [address] [facility] [phone] Khoa Cruz [facility] [address] [facility] [address] 07/24/2024 3:20 PM EST Office Visit [facility] [address] [place] [phone] Jazmin Chandler DO [address] [place] [address] Health Maintenance Due Date Last Done Comments [...] as of this encounter Visit Diagnoses Diagnosis PCOS (polycystic ovarian syndrome)- Primary Polycystic ovaries Body mass index (BMI) of 60.0 to 69.9 in adult (HCC) HTN, age 0-18 Unspecified essential hypertension Need for prophylactic vaccination and inoculation against influenza documented in this encounter Care Teams Museum Assistant Relationship Specialty Start Date End Date September, Khoa Harrington MD [address] [place] [address] PCP - General Family Medicine 08/30/22 documented as of this encounter
--- OUTSIDE RECORDS SUMMARY | 2024-03-20 13:04 | External Medical Summary | Summary of Care ---
Author Name Unknown Organization [facility] Address [address] [place] [address] Phone [phone] Care Team Providers Care Sole Filler Name Role Phone Khoa Cruz MD Primary Care Provider [phone] Encounter Details Date Type Department Care Team ([facility] Contact Info) Description 03/10/2024 Documentation Psychology [place] [address] [place] [address] Manda Lewis PsyD [address] [place] [address] Allergies Active Allergy Reactions Criticality Noted Date Comments Pollen 11/02/2023 Rhinitis documented as of this encounter (statuses as of 03/10/2024) Medications Medication Sig Dispensed Refills Start Date [...] 02/29/2024 Active Vitamin D (Ergocalciferol) 1.25 MG (37173 UT) Oral Capsule (Drisdol)Indications:V itamin D deficiency Take 1 Capsule by mouth once a week. 8 Capsule 03/03/2024 Active documented as of this encounter (statuses as of 03/10/2024) Active Problems Problem Noted Date Diagnosed Date [...] as of this encounter (statuses as of 03/10/2024) Resolved Problems Problem Noted Date Diagnosed Date Resolved Date BMI 50.0-59.9, adult 08/18/2021 023 Overview: Per Obesity protocol Elevated BP 08/31/2015 08/31/2015 documented as of this encounter (statuses as of 03/10/2024) Immunizations Name Administration Dates Next Due DTaP [...] Faye OSA - 03/10/2024 2:08 PM EDT Your fax has been successfully sent to [facility] RE: Sarah Sosa at [phone]. 03/10/2024 1:10:36 PM Origin Record documented in this encounter Plan of Treatment Upcoming Encounters Date Type Department Care Team (Late st Contact Info) Description 04/08/2024 12:00 PM EST Telemedicine Nutrition & Weight Management, [facility] [address] [place] [address] Denae Riley PA-C [address] [place] [address] 04/08/2024 1:30 PM EST Telemedicine Nutrition & Weight Management, [facility] [address] [place] [address] [facility], Surgery Class Provider [facility] [address] [place] [address] 05/20/2024 1:30 PM EST Nutrition Services Nutrition & Weight Management, [facility] [address] [address] Yomaira Redding RDN [address] [address] 06/16/2024 1:00 PM EST Office Visit [facility] [address] [facility] [phone] SeptemberKhoa MD [address] [facility] [address] 07/24/2024 3:20 PM EST Office Visit [facility] [address] [place] [phone] Jazmin Chandler, [address] [place] [address] Health Maintenance Due Date Last Done Comments [...] filedocumented as of this encounter Care Teams Sole Filler Relationship Specialty Start Date End Date September, Khoa Harrington MD [address] [place] [address] PCP - General Family Medicine 08/30/22 documented as of this encounter
--- OUTSIDE RECORDS SUMMARY | 2024-03-20 13:04 | External Medical Summary | Summary of Care ---
Author Name Unknown Organization [facility] Address [address] [place] [address] Phone [phone] Care Team Providers Care Locker Room Manager Name Role Phone Khoa Cruz MD Primary Care Provider [phone] Encounter Details Date Type Department Care Team ([facility] Contact Info) Description 03/06/2024 Orders Only PATIENT PORTAL DO NOT DELETE THIS DEPT USED BY [address] [place] [id number] Allergies Active Allergy Reactions Criticality Noted Date Comments Pollen 11/02/2023 Rhinitis documented as of this encounter (statuses as of 03/06/2024) Medications Medication Sig Dispensed Refills Start Date [...] 02/29/2024 Active Vitamin D (Ergocalciferol) 1.25 MG (67983 UT) Oral Capsule (Drisdol)Indications:V itamin D deficiency Take 1 Capsule by mouth once a week. 8 Capsule 03/03/2024 Active documented as of this encounter (statuses as of 03/06/2024) Active Problems Problem Noted Date Diagnosed Date [...] as of this encounter (statuses as of 03/06/2024) Resolved Problems Problem Noted Date Diagnosed Date Resolved Date BMI 50.0-59.9, adult 08/18/2021 023 Overview: Per Obesity protocol Elevated BP 08/31/2015 08/31/2015 documented as of this encounter (statuses as of 03/06/2024) Immunizations Name Administration Dates Next Due DTaP [...] PM EST Telemedicine Nutrition & Weight Management, [facility] [address] [place] [address] Denae Riley PA-C [address] [place] [address] 04/08/2024 1:30 PM EST Telemedicine Nutrition & Weight Management, [facility] [address] [facility] [place] [address] [facility], Surgery Class Provider [facility] [place] [address] 05/20/2024 1:30 PM EST Nutrition Services Nutrition & Weight Management, [facility] [address] [place] [address] Yomaira Redding RDN [address] [place] [address] 06/16/2024 1:00 PM EST Office [facility] [address] [place] [phone] Khoa Cruz MD [address] [place] [address] 07/24/2024 3:20 PM EST Office Visit [facility] [address] [facility] [place] [phone] Jazmin Chandler DO [address] [place] [address] Health Maintenance Due Date Last Done Comments [...] filedocumented as of this encounter Care Teams Locker Room Manager Relationship Specialty Start Date End Date September, Khoa Harrington MD [address] [place] [address] PCP - General Family Medicine 08/30/22 documented as of this encounter
--- OUTSIDE RECORDS SUMMARY | 2024-03-20 13:04 | External Medical Summary | Summary of Care ---
Author Name Unknown Organization [facility] Address [address] [place] [address] Phone [phone] Care Team Providers Care Register In Chancery Name Role Phone Nancy Khoa Harrington MD Primary Care Provider [phone] Reason for Visit * Reason Comments Bariatric Surg Psych Eval * - Authorized Specialty Diagnoses / Procedures Referred By Dhaval t Referred To Contact Referral ID Status Reason Start Date Expiration Date V isits Requested Visits Authorized [id number] Authorized 02/19/2024 02/17/[phone] Encounter Details Date Type Department Care Team ([facility] st Contact Info) Description 03/04/2024 8:00 AM EDT Telemedicine Psychology Fernando Avitia [address] [place] [address] Manda Lewis PsyD [address] [place] [address] Eating disorder, unspecified type* Allergies Active Allergy Reactions Criticality Noted Date Comments Pollen 11/02/2023 Rhinitis documented as of this encounter (statuses as of 03/05/2024) Medications Medication Sig Dispensed Refills Start Date [...] 02/29/2024 Active Vitamin D (Ergocalciferol) 1.25 MG (98307 UT) Oral Capsule (Drisdol)Indications:V itamin D deficiency Take 1 Capsule by mouth once a week. 8 Capsule 03/03/2024 Active documented as of this encounter (statuses as of 03/05/2024) Active Problems Problem Noted Date Diagnosed Date [...] as of this encounter (statuses as of 03/05/2024) Resolved Problems Problem Noted Date Diagnosed Date Resolved Date BMI 50.0-59.9, adult 08/18/2021 023 Overview: Per Obesity protocol Elevated BP 08/31/2015 08/31/2015 documented as of this encounter (statuses as of 03/05/2024) Immunizations Name Administration Dates Next Due DTaP Dipth/Tet/Acell Pertussis (Infanrix), Peds 11/10/2009,02/14/2006,03/02/2005,12/21,2004 H1N1 2009 Influenza, IM 07/16/2009 HIB PRP-OMP, 3 dose (Pedvax) 08/16/2005,12/22/19 05,2004 HPV Vaccine, 9-Valent 06/25/2018,02/18/2016 Hepatitis A Vaccine 08/14/2006,11/14/2005 Hepatitis B, 0-19 yrs 08/16/2005,2004,2004 IPV - Polio Virus Vaccine (Inact) 2009,11/14/2005,2004,10/13 MMR - Measles/Mumps/Rubella Vaccine 11/10/2009,0 08/16/2005 Meningococcal MCV4O Conjugat e Vaccine (Menveo) 08/18/2021 Meningococcal MCV4P Conjugat e Vaccine (Menactra) 02/18/2016 PPD 09/22/2022,09/13/2022 Pneumococcal Conjugate Vacci ne, 7 Valent 08/16/2005,03/02/2005,2004,10/13 Seasonal Influenza Virus Vac cine, Unspecified Formulation 02/27/2022,04/14/2020,02/27/2019,04/03,03/28/2017,02/18/2016,03/16/2015 ,03/28/2012,03/01/2011,02/25/2010,04/0 12/2009,07/16/2009,02/09/2009, 8,02/20/2007,04/09/2006,08/16/2005,06/2004,03/02/2005 Seasonal Influenza, PF, 6 M & [...] the money to buy more. Never true 10/15/20 24 Within the past 12 months, t [...] as of this encounter Progress Notes * Thornfield, Manda, Stanley - 03/04/2024 8:09 AM EDT BEHAVIORAL MEDICINE ASSESSMENT FOR BARIATRIC SURGERY DEPARTMENT OF PSYCHIATRY & BEHAVIORAL MEDICINE [address], [place] [id number] Psychology [facility] [address] [facility] [phone] 03/04/2024 8:09 AM REASON FOR REFERRAL Sarah Sosa ([id number]) is a 18 year old female who comes on referral from Nutrition and Weight Management for psychological evaluation and preparation for potential bariatric surgery. Sarah's primary care provider is Khoa Cruz MD. A review was conducted of the medical record. Time spent on this visit was 63 minutes. Recommendations Based on Psychological Evaluation: YELLOW PSYCHOLOGICAL CONDITION- It is my professional opinion that surgery for Sarah should be postponed until successful completion of recommendations as noted below. Summary: The decision noted above is based on the following: Sarah has made significant weight loss attempts in the past, but without lasting success. Sarah experienced mild mental health problems in the past year. Sarah experienced serious mental health problems earlier in life. Sarah is not currently engaging in problematic eating behaviors, however, see below for history of problematic eating behaviors. Sarah is knowledgeable about the surgery and related risks. Sarah is knowledgeable about the 4-step diet following surgery. Sarah's motivation for surgery is: Good Sarah's social support is: Good Sarah is aware of expected surgery weight loss with surgery. Sarah is aware of the habit changes that will need to occur and is actively engaged in changing those now. Sarah is making progress towards weight goal and there is not a medical indication for weight gain. Behavioral Recommendations: Sarah has a Yellow light from Behavioral Medicine. Your surgery will be postponed until successful completion of the recommendations noted below. The follow up plan is as follows: Will call patient or message in 4-6 weeks and will send a release to speak with therapist at [facility]. Continue progress on weight loss goal Continue psychological counseling Continue behavioral changes, especially: Increasing exercise. Park further away, take steps instead of elevators, swimming is great for those with pain/difficulty walking, walking is cheap and easy, get an exercise partner (family, friend, or pet will do), listen to music while you exercise, try different types of exercise to find one youlike (e.g., walking, riding bike, going to gym, swimming, exercise videos), get on a regular exercise schedule, do chair exercises for upper body if knees/legs/back are problems Eating three meals, and two snacks per day. Set a regular schedule to the extent possible, use liquid meals as a substitute if you don't like heavy food in the morning, talk with boss/coworkers/family about the need for regular eating times, talk with the dieticians about planning snacks throughoutthe day Sipping water. Use a sippy cup, freeze a partially filled bottle of water and sip as it melts, use a sports bottle with a pop-up lid, keep water available at all times, set timer to remind self to take sips if needed, don't wait until you're thirsty to drink getting in 64 oz water Continuing to remain free of problematic eating behaviors Engaging in CPAP compliance If you have any questions, you can contact Manda Lewis PsyD at . Patient location: HOME. I was in a hospital or clinic location. After connecting through televideo,patient was verified with two unique identifiers. Patient (or authorized legal circulation representative) was then informed that this was a Telemedicine visit and being conducted confidentially over secure lines. Methods to assure confidentiality were taken. Patient acknowledged consent and understanding of pr ivacy and security of the Telemedicine visit. The patient agreed to participate. Provider determined this patient has capacity to receive and benefit from telehealth services. Face to Face Start Time: 8:09 AM Face to Face Stop Time: 9:12 AM Referral Source: [facility] Risk Assessment: [place] Suicide Severity Rating Scale Results 03/05/2024 15:29 [place] SUICIDE SEVERITY RATING SCALE (C-SSRS) Have you wished you were or wished you could go to sleep and not wake up? (In the Past Month or Since Last Visit) No Have you had any actual thoughts of killing yourself? (In the Past Month or Since Last Visit) No Have you been thinking about how you might do this? (In the Past Month or Since Last Visit) No Have you had thoughts and had some intention of acting on them? (In the Past Month or Since Last Visit) No Have you started to work out or worked out the details of how to kill yourself? Do you intend to carry out this plan? (In the Past Month or Since Last Visit) No Have you ever done anything, started to do anything, or prepared to do anything to end your life? (Lifetime) Yes Was this within the past 3 months? No Level of Risk Moderate History of Present Illness: Bariatric Surgery: [facility] Checklist Date: 02/26/24 Sarah prefers gastric bypass procedure. Weight History: Current Weight: as of 03/03/2024 is 401 lbs Wt Readings from Last 5 Encounters: 02/29/24 (!) 182 kg (401 lb 3.2 oz) (>99%, Z= 3.19)* 02/26/24 (!) 182 kg (401 lb 3.2 oz) (>99%, Z= 3.19)* 12/11/23 (!) 187.4 kg (413 lb 3.2 oz) (>99%, Z= 3.18)* 11/21/23 (!) 193.6 kg (426 lb 14.4 oz) (>99%, Z= 3.20)* 11/13/23 (!) 192.3 kg (424 lb) (>99%, Z= 3.19)* * Growth percentiles are based on CDC (Girls, 2-20 Years) data. Weight Changes: weight decreased by 25 lbs since starting program in November Pre-surgery weight goal: 386 (10%) Progress in meeting pre-surgery weight goal: good Age when first became concerned about weight: has "always been bigger"; noticed that it "got bad" ayear or two ago Current weight reduction strategies and methods: using myplate, finds this very helpful; meal-prepping Problematic Eating Behaviors: History of binge eating episodes: Moderate (4-7 episodes per week). If h/o binge eating, briefly describe an average binge eating episode: would "sit down and just eatall of this food" to the point of getting sick. Would subsequently meal skip. If h/o objective binge eating, when was the last binge? greater than 1 year History of self-induced vomiting or other compensatory strategies (i.e., laxatives, diuretics): None. If h/o compensatory behaviors, when was the last episode? not applicable History of caloric restriction/meal skipping: Moderate (4-7 episodes per week). If h/o restriction, was this primarily to influence shape/weight: as a result of a binge If h/o restriction, when was the last episode? Recent, d/t timing, however, > 1 year d/t restriction History of waking at night to eat/late night eating right before bed: None. If h/o night eating, when was the last episode? not applicable History of grazing (picking on food between planned meals and snacks): Severe (8-13 episodes per week). If h/o grazing, when was the episode? Since starting the program in November (4 months) History of emotional eating: Moderate (4-7 episodes per week). If h/o emotional eating, when was the last episode? greater than 3 months, October High Risk Eating Situations Other high-risk times and places where Sarah is likely to engage in potentially harmful eating behaviors include: continuing success with family parties Sarah is is aware of eating patterns and adaptive coping strategies: eating consistent meals, planning snacks ahead of time, chews gum as a response to boredom cravings, drinks water, bringing a healthy meal option Motivation for and Knowledge of Surgery: Length of time considering surgery: 1 year, since noticing how "bad" things were. 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 Mixed feelings/concerns: endorsed some concern about potential complication. Is also aware of post-op sagging skin considering her young age. Surgery concerns: mild Knowledge of the procedure: patient has attended 1 support groups, has read the book, Weight Loss Surgery, and has researched information from the Internet Aware of surgical risks, including: <1% mortality, 20% complication risks after surgery (e.g., leakages, infections, blood clots), 20% emotional/ups and downs, and that skin may be loose and insurance may not cover plastic surgery. REALISTIC POSTSURGICAL GOALS/EXPECTATIONS Pauline stated weight loss goal after surgery: "a healthy weight" Eventually in the 100s This goal is realistic based on information provided by the Nutrition/Surgery team and the Get 2 Goal priscilla. Understanding of Eating Changes After Surgery: Aware of the four stages of eating following surgery: Sugar-free clear liquids right after surgery (typically for less than 24 hours) Protein shakes (fat-free greenlandic yogurt, nonfat yogurt, non-fat or 1% milk, tomato soup) - 2 weeks before and after surgery 2b. Can add cottage cheese, eggs, ricotta cheese (low fat) Add soft protein (fish, turkey, chicken, tofu, veggie burger) but no fruits, vegetables, or starches ~8 weeks after surgery Introduction of regular foods, including fruits, vegetables, and starches ~2 months after surgery Sarah has concerns or anticipates problems with the stages of eating: general nervousness about a liquid diet Aware of the need to prioritize protein. Aware of possibility that food tastes may change. Sarah's knowledge of eating requirements after surgery: good Post-Surgery Eating Habit Changes and Readiness: Aware of the following eating habit changes and is practicing them to the following extent already (50% = half meals/week; 100% = every meal/week): Eating slowly, chewing food to applesauce consistency: Aware of the need and practicing about 85% of the time and has been practicing at this rate for about 2 months. eating and drinking by 30 minutes before and after meals and snacks: Aware of the need and practicing about 85% of the time and has been practicing at this rate for about 2 months. Sets alarms. Eating smaller quantities: Aware of the need and practicing about 90% of the time and has been practicing at this rate for about 2 months. Drinking 32 oz of water daily (64 oz goal unless pt has fluid restriction due to a medical condition). Has difficulty with sipping drinks slowly: yes Has difficulty with NOT using straws to drink: no Other daily beverages (excluding protein shakes): sugar free vitamin water Eating regular schedule with 3 meals and 1-3 snacks per day (sleeve requires only 3 meals, no snacks): Aware of the need and practicing 0-7 (depending) days of the week and has been practicing at this rate for about 2 months. Schedule of current meals and snacks: doesn't tend to eat snacks Regular exercise: Aware of the need to exercise regularly and walks around while shopping. Current implementation of eating habit/behavioral changes overall: good Most challenging behavioral changes for the patient are: -Increasing exercise. Park further away, take steps instead of elevators, swimming is great for those with pain/difficulty walking, walking is cheap and easy, get an exercise partner (family, friend,or pet will do), listen to music while you exercise, try different types of exercise to find one you like (e.g., walking, riding bike, going to gym, swimming, exercise videos), get on a regular exercise schedule, do chair exercises for upper body if knees/legs/back are problems -Eating three meals, and two snacks per day. Set a regular schedule to the extent possible, use liquid meals as a substitute if you don't like heavy food in the morning, talk with boss/coworkers/family about the need for regular eating times, talk with the dieticians about planning snacks throughout the day -Sipping water. Use a sippy cup, freeze a partially filled bottle of water and sip as it melts, usea sports bottle with a pop-up lid, keep water available at all times, set timer to remind self to take sips if needed, don't wait until you're thirsty to drink -getting in 64 oz water Adherence and Attendance: Number of no-show appointments in the past 6 months: 0 Number of cancelled appointments in the past 6 months (excluding provider cancellations or those cancelled d/t COVID): 2 Reason for cancellations/no shows: family emergency or because of illness Take all medications as prescribed: Yes, only issue is currently Wegovy is on backorder Current obstructive sleep apnea diagnosis? Yes If yes, nights per week wearing CPAP/BiPAP: 0, has trouble getting mask to slay on face Potential work schedule conflict? no Adequate time to recover from surgery before returning to work? N/A Current stressors or anticipated stressful events that might interfere with Sarah focusing on necessary habit changes before or after surgery include: denied (of note patient has been going to therapy) Severity of stressor(s): none Potential barriers to treatment compliance (attending appointments, taking vitamins and supplements, accessing healthy food and protein shakes): none identified Current Social Support Network: Primary social support comes from: friends, mother, grandmother, "whole family". Identified post-surgery caregiver(s): mom and nan. Quality of EMOTIONAL support (e.g., help maintaining diet/exercise): Good. Quality of TASK support (e.g., help with post-surgical care): Good. Support network reactions to bariatric surgery: positive Sarah's social support network is: good Patient's last PHQ-9 score (Adult) - 9 and Patient's last CORINA-7 score - Total:5 Psychiatry Review of Systems: PSYCHIATRY REVIEW OF SYSTEMS Pain screening: Is patient experiencing any pain related to today's visit? No Nutritional Screening: Documented in assessment of this note Psychiatric History: Outpatient Treatment: Therapy and Psychiatry services at [facility] - treated for childhood trauma - has brought up surgery and eating behaviors (treatment has just started) - prescribed clonidine for anxiety, notes this "definitely" calms her - therapy as a child - Dx with ADHD, CORINA, MDD, as well as binge eating disorder Inpatient Treatment: For a few weeks at 12 yo - notes there were a lot of "family issues" at the time and school stressors as well as struggles with "how [she] looked" - SA via OD Self injury and suicide attempts: Once at 12; engaged in (most recent 6 years ago) Prior psychotropic medical trials: Medications by Pharm Class (Includes Only ADHD/Anti-Narcolepsy/Anti-Obesity/Anorexiants, Antidepressants, Antianxiety Agents, Antipsychotics/Antimanic Agents, Anticonvulsant, Hypnotics/Sedatives/Sleep Disorder Agents, Beta Blockers, Antihypertensive) Medication Sig Wegovy 0.5 MG/0.5ML Subcutaneous Solution Auto-injector (Semaglutide-Weight Management) Inject 0.5 mg under the skin once a week. cloNIDine HCl 0.2 MG Oral Tablet (Catapres) Take 1 Tablet by mouth at bedtime. History of trauma, abuse, exploitation or trafficking: see above Substance Use History: Denied alcohol use, denied substance use, non-smoker Cut out tea Family Psychiatric History: Psychiatric diagnoses: Not assessed Attempted suicides/ by suicide: Not assessed Drug and alcohol abuse: Not assessed Personal, Family and Social History: Living situation: Lives with mother and brother Education/Employment: [employer], not currently working History: None Legal History: None Intellectual Disability Diagnosis: No Activities of Daily Living: Good Additional community service involvement: None Leisure and recreational interest: Play video games, watching movies or tv, being outside Amish/Spiritual Orientation: No Yazidi Pref Mental Status Evaluation: Appearance: Well groomed, casually dressed, appearing stated age Abnormal Movement: No abnormal movements noted Behavior: Calm, cooperative and appropriate Speech and Language: Normal in rate, rhythm, volume and tone Mood: Euthymic Affect: Appropriate to context and mood-congruent Thought Process: Logical, linear and goal directed Thought Content: No abnormal thought content Hallucinations: No perceptual disturbances Suicidality: No suicidal ideations, intent, method or plan or passive wish Homicidality: No homicidal ideations, intent, plan or target Orientation: Oriented to self, time, place and circumstances Attention: Intact Recent and Remote memory:Intact Insight: Good Judgement: Good Fund of Knowledge: Good Assessment/Formulation: Sarah Sosa is a 18 year old female seen today by behavioral medicine FORBARIATRIC SURGERY and recommendations associated with today's evaluation can be found above. Diagnosis: ICD-10-CM 1. Eating disorder, unspecified type F50.9 Plan: Low risk crisis plan was developed on 03/05/24. As this is a one time evaluation a treatment plan will not be created. However, should patient engage in ongoing treatment, a plan will be created withthat provider at that time. Type of Service: Psychological Evaluation Crisis Planning: What I can do if I ever experience a crisis (much worse symptoms, severe distress or thoughts of self-harm): Distraction on computer/TV People I can call in the event of a crisis: Mom. Additional resources I can utilize if the previous steps are ineffective (e.g: ED, hotlines): Suicide and Crisis Lifeline - 988, Clinic number: 882-066-0359, and [facility] Hotlines for Help Patients Strengths and Facilitating Factors to care: Seeking help, Has hobbies, and Good support system The assessment and plan for Sarah Sosa are detailed at the beginning of this report. Treatment options and recommendations/interventions reviewed. Patient and/or caregiver verbalize understanding and agrees to plan with explanation of risks/benefits, aware of how to contact clinic with questions. documented in this encounter Plan of Treatment Upcoming Encounters Date Type Department Care Team (Late st Contact Info) Description 04/08/2024 12:00 PM EST Telemedicine Nutrition & Weight Management, [facility] [address] [place] [id number] Denae Riley PA-C [address] [place] [phone] 04/08/2024 1:30 PM EST Telemedicine Nutrition & Weight Management, [facility] [address] [facility] [place] [address] [facility], Surgery Class Provider [facility] [address] [facility] [place] [address] 05/20/2024 1:30 PM EST Nutrition Services Nutrition & Weight Management, [facility] [address] [place] [address] Yomaira Redding RDN [address] [place] [address] 06/16/2024 1:00 PM EST Office Visit [facility] [address] [place] [address] Khoa Cruz MD [address] [place] [address] 07/24/2024 3:20 PM EST Office Visit [facility] [address] [place] [phone] Jazmin Chandler DO [address] [place] [id number] Scheduled Referrals Name Type Priority Associated Diagnoses Orde r Schedule ADULT/PEDS PSYCHOLOGY REFERRAL OP Referral Within 10 days (routine) Morbid obesity due to excess calories (HCC) Ordered: 02/26/2024 Health Maintenance Due Date Last Done Comments [...] as of this encounter Visit Diagnoses Diagnosis Eating disorder, unspecified type- Primary documented in this encounter Care Teams Register In Chancery Relationship Specialty Start Date End Date September, Khoa Harrington MD [address] [place] [address] PCP - General Family Medicine 08/30/22 documented as of this encounter
--- OUTSIDE RECORDS SUMMARY | 2024-03-20 13:04 | External Medical Summary ---
Author Name Unknown Address Unknown Organization : Laboratory Report Ordering Provider Test Date Status CORINNE SHINE 03/11/2024 15:43:06 Final Patient may bring sample in earlier or later than expected date. Observation Date Value Abnormality Reference (Units ) Status result / comment 03/11/2024 15:43:06 Not Detected Not Detected Final Antimicrobials, proton pump inhibitors, and bismuth
preparations inhibit H. pylori and ingestion up to
two weeks prior to testing may cause false negative
results. If clinically indicated the test should
be repeated on a new specimen obtained two weeks
after discontinuing treatment.

Test Performed at:
[facility]
[id number] [facility]
[place] [address]
Kaushal Roberto M.D., Ph.D.,Director of Laboratories Performing Location
--- OUTSIDE RECORDS SUMMARY | 2024-03-20 13:04 | External Medical Summary | Summary of Care ---
Author Name Unknown Organization [facility] Address [address] [place] [address] Phone [phone] Care Team Providers Care Shellfish Farming Supervisor Name Role Phone Khoa Cruz MD Primary Care Provider [phone] Reason for Visit * Reason Comments Outpatient Testing Encounter Details Date Type Department Care Team ([facility] st Contact Info) Description 02/26/2024 10:10 AM EDT Laboratory Laboratory, [facility] 132 [place] [phone] [facility] [address] [place] [address] Morbid obesity due to excess calories (HCC) Allergies Active Allergy Reactions Criticality Noted Date Comments Pollen 11/02/2023 Rhinitis documented as of this encounter (statuses as of 02/26/2024) Medications Medication Sig Dispensed Refills Start Date [...] a week. 2 mL 5 01/15/2024 Active documented as of this encounter (statuses as of 02/26/2024) Active Problems Problem Noted Date Diagnosed Date [...] as of this encounter (statuses as of 02/26/2024) Resolved Problems Problem Noted Date Diagnosed Date Resolved Date BMI 50.0-59.9, adult 08/18/2021 023 Overview: Per Obesity protocol Elevated BP 08/31/2015 08/31/2015 documented as of this encounter (statuses as of 02/26/2024) Immunizations Name Administration Dates Next Due DTaP [...] above, IM , (FluLaval or Fluzone) 02/13/2023,02/27/2022,02/18/2021 TDAP, Age 7 and older, IM (Adacel) [...] 06/04/2023 Does the household have a re lar [...] Description 02/29/2024 1:20 PM EDT Office Visit [facility] [address] [facility] [place] [address] Khoa Cruz MD [address] [place] [address] 03/04/2024 8:00 AM EDT Telemedicine Psychology Richard Hinojosa [place] [address] [place] [address] Manda LewisStanley [address] [place] [address] 03/04/2024 1:00 PM EDT Imaging Radiology [facility] [address] 04/08/2024 12:00 PM EST Telemedicine Nutrition & Weight Management, [facility] 132 [facility] [place] [address] Denae Riley PA-C 132 [facility] [place] [address] 04/08/2024 1:30 PM EST Telemedicine Nutrition & Weight Management, [facility] 132 [facility] [place] [address] [facility], Surgery Class Provider [facility] [address] [facility] [place], [place] [address] 05/20/2024 1:30 PM EST Nutrition Services Nutrition & Weight Management, [facility] 132 [facility] [place] [address] Yomaira Redding RDN [address] [facility] [place] [address] 06/16/2024 1:00 PM EST Office Visit [facility] [place] [address] [place] [facility] [place] [address] Khoa Cruz MD [address] [place] [address] 07/24/2024 3:20 PM EST Office Visit Sleep Disorders [facility] [address] [place] [address] Jazmin Chandler, [address] [place] [address] Pending Results Name Type Priority Associated Diagnoses Date /Time VITAMIN A (RETINOL) Lab Routine Morbid obesity due to excess calories (HCC) 02/26/2024 10:07 AM EDT VITAMIN B1 (THIAMINE), BLOOD, LC/MS/MS Lab Routine Morbid obesity due to excess calories (HCC) 02/26/2024 10:07 AM EDT VITAMIN B12 Lab Routine Morbid obesity due to excess calories (HCC) 02/26/2024 10:07 AM EDT INSULIN Lab Routine Morbid obesity due to excess calories (HCC) 02/26/2024 10:07 AM EDT COMPREHENSIVE METABOLIC PANEL Lab Routine Morbid obesity due to excess calories (HCC) 02/26/2024 10:07 AM EDT CBC Lab Routine Morbid obesity due to excess calories (HCC) 02/26/2024 10:07 AM EDT HEMOGLOBIN A1C Lab Routine Morbid obesity due to excess calories (HCC) 02/26/2024 10:07 AM EDT LIPID PANEL WITHOUT DIRECT LDL Lab Routine Morbid obesity due to excess calories (HCC) 02/26/2024 10:07 AM EDT TSH Lab Routine Morbid obesity due to excess calories (HCC) 02/26/2024 10:07 AM EDT 25-HYDROXY VITAMIN D Lab Routine Morbid obesity due to excess calories (HCC) 02/26/2024 10:07 AM EDT ZINC Lab Routine Morbid obesity due to excess calories (HCC) 02/26/2024 10:07 AM EDT FOLIC ACID Lab Routine Morbid obesity due to excess calories (HCC) 02/26/2024 10:07 AM EDT PTH Lab Routine Morbid obesity due to excess calories (HCC) 02/26/2024 10:07 AM EDT IRON SCREEN, INCLUDING TIBC Lab Routine Morbid obesity due to excess calories (HCC) 02/26/2024 10:07 AM EDT FERRITIN Lab Routine Morbid obesity due to excess calories (HCC) 02/26/2024 10:07 AM EDT Health Maintenance Due Date Last Done Comments COVID-19 Vaccine ( season) 2024 02/22/2021, 01/21/2021 Influenza Vaccine (FLU shot) (#1) 2024 02/13/2023, 02/13/2023, 02/27/2022, Additional history exists GFR 02/14/2024 02/13/2023, 12/20, 10/13/2020, Additional history exists Depression Monitoring 06/04/2024 06/04/2023 Gonorrhea / Chlamydia Screen 12/10/2024 07/24/2022 Postponed from 07/25/2023 (Patient Declined After Education) Hepatitis C Screening 12/10/2024 Postpo immanuel from 2022 (Patient Declined After Education) TSH 12/10/2024 12/11/2023, 01/20, 07/06/2022, Additional history exists Yearly Wellness Visit 12/10/2024 12/11/2023 , 09/20/2022, 08/18/2021 Albumin/Creatinine Ratio 07/24/2025 07/24/2022 DTap/Tdap Vaccines (7 - Td or Tdap) 02/17/2026 02/18/2016, 11/10/2009, 02/14/2006, Additional history exists Hepatitis B Vaccine Completed 08/16/2005, 2004, 2004 HPV (Gardasil) Vaccine Completed 06/25/2018, 2015 MENINGOCOCCAL (MENACTRA/MENVEO) Completed 08/18/2021, 02/18/2016 Pneumococcal Vaccine: Pediatrics (0 to 5 Years) and At-Risk Patients (6 to 64 Years) Aged Out No longer eligible based on patient's age to complete this topic documented as of this encounter Medical Devices Not on filedocumented as of this encounter Visit Diagnoses Diagnosis Morbid obesity due to excess calories (HCC) documented in this encounter Care Teams Shellfish Farming Supervisor Relationship Specialty Start Date End Date September, Khoa Harrington MD [address] [place] [address] PCP - General Family Medicine 08/30/22 documented as of this encounter
--- OUTSIDE RECORDS SUMMARY | 2024-03-20 13:04 | External Medical Summary | Summary of Care ---
Author Name Unknown Organization [facility] Address [address] [place] [facility] [place] [address] Phone [phone] Care Team Providers Care Non Profit Job Titles Name Role Phone Khoa Cruz MD Primary Care Provider [phone] Encounter Details Date Type Department Care Team (Late st Contact Info) Description 03/03/2024 Orders Only Nutrition & Weight Management, [facility] [address] [place] [address] Denae Riley PA-C [address] [place] [address] Vitamin D deficiency*; Zinc deficiency Allergies Active Allergy Reactions Criticality Noted Date Comments Pollen 11/02/2023 Rhinitis documented as of this encounter (statuses as of 03/03/2024) Medications Medication Sig Dispensed Refills Start Date [...] 02/29/2024 Active Vitamin D (Ergocalciferol) 1.25 MG (71440 UT) Oral Capsule (Drisdol)Indications:V itamin D deficiency Take 1 Capsule by mouth once a week. 8 Capsule 03/03/2024 Active documented as of this encounter (statuses as of 03/03/2024) Active Problems Problem Noted Date Diagnosed Date [...] as of this encounter (statuses as of 03/03/2024) Resolved Problems Problem Noted Date Diagnosed Date Resolved Date BMI 50.0-59.9, adult 08/18/2021 023 Overview: Per Obesity protocol Elevated BP 08/31/2015 08/31/2015 documented as of this encounter (statuses as of 03/03/2024) Immunizations Name Administration Dates Next Due DTaP [...] [id number] 03/04/2024 1:00 PM EDT Imaging Radiology [facility] [address] [place] [address] 04/08/2024 12:00 PM EST Telemedicine Nutrition & Weight Management, [facility] [address] [place] [address] Denae Riley PA-C [address] [place] [address] 04/08/2024 1:30 PM EST Telemedicine Nutrition & Weight Management, [facility] 132 [facility] [place] [address] [facility], Surgery Class Provider [facility] [place] [address] 05/20/2024 1:30 PM EST Nutrition Services Nutrition & Weight Management, [facility] [address] [place] [address] Yomaira Redding RDN [address] [place] [address] 06/16/2024 1:00 PM EST Office Visit [address] [place] [phone] Khoa Cruz MD [address] [place] [facility] [place] [place] [address] 07/24/2024 3:20 PM EST Office Visit [facility] Disorders Ctr [facility] [address] [place] [phone] Jazmin Chandler, [address] [place] [address] Scheduled Orders Name Type Priority Associated Diagnoses Orde r Schedule 25-HYDROXY VITAMIN D Lab Routine Vitamin D deficiency Expected: 03/03/2024, Expires: 03/03/2025 PTH Lab Routine Vitamin D deficiency Expected: 03/03/2024, Expires: 03/03/2025 ZINC Lab Routine Zinc deficiency Expected: 03/03/2024, Expires: 03/03/2025 Health Maintenance Due Date Last Done Comments [...] as of this encounter Visit Diagnoses Diagnosis Vitamin D deficiency- Primary Unspecified vitamin D deficiency Zinc deficiency Mineral deficiency, not elsewhere classified documented in this encounter Care Teams Non Profit Job Titles Relationship Specialty Start Date End Date September, Khoa Harrington MD [address] [place] [address] PCP - General Family Medicine 08/30/22 documented as of this encounter
--- OUTSIDE RECORDS SUMMARY | 2024-03-20 13:05 | External Medical Summary ---
Author Name Unknown Address Unknown Organization [id number]:[facility] - [address] [place] [address] Laboratory Report Ordering Provider Test Date Status CORINNE SHINE 02/26/2024 10:07:35 Final Observation Date Value Abnormality Reference (Units ) Status HbA1C 02/26/2024 10:07:35 5.1 4.0-5.6 (% ) Final The use of HbA1c to monitor glycemic status is based on normal hemoglobin and HbA composition. This test should not be used in patients with abnormal hemoglobin that affects the half life of the red blood cell or the in vivo glycation rates. Glucose, estimated average 02/26/2024 10:07:35 100 <126 (mg/dL) Final Performing Location [facility] - [address] [place] [address]
--- OUTSIDE RECORDS SUMMARY | 2024-03-20 13:05 | External Medical Summary | Summary of Care ---
Author Name Unknown Organization [facility] Address [address] [place] [address] Phone [phone] Care Team Providers Care Steel Division Supervisor Name Role Phone Khoa Cruz MD Primary Care Provider [phone] Reason for Visit * Reason Onset Date Comments Other 12/11/2023 DME order Encounter Details Date Type Department Care Team ([facility] st Contact Info) Description 12/11/2023 Telephone Sleep Disorders, [address] [address] Netta Buck MD [address] [place] [address] Other (DME order ) Allergies Active Allergy Reactions Criticality Noted Date Comments Pollen 11/02/2023 Rhinitis documented as of this encounter (statuses as of 12/12/2023) Medications Medication Sig Dispensed Refills Start Date End Date Status cloNIDine HCl 0.2 MG Oral Tablet (Catapres) Take 1 Tablet by mouth at bedtime. 09/13/2023 Active Wegovy 0.25 MG/0.5ML Subcutaneous Solution Auto-injector (Semaglutide-Weight Management)Indicati ons:Morbid obesity due to excess calories (HCC) Inject 0.25 mg under the skin once a week. 2 mL 5 11/02/2023 Active Levothyroxine Sodium 100 MCG Oral Tablet (Levoxyl)Indication s:Hypothyroidism, unspecified type Take 1 Tablet by mouth daily first thing in the morning. 90 Tablet 3 02/13/2023 12/11/2023 Discontinued (Refill) Amoxicillin-Pot Clavulanate 875-125 MG Oral Tablet (Augmentin) Take 1 Tablet by mouth in the morning and 1 Tablet before bedtime. Do all this for 10 days. Take with food.. 20 Tablet 08/25/2023 12/11/2023 Discontinued (Medication List Clean Up) documented as of this encounter (statuses as of 12/12/2023) Active Problems Problem Noted Date Diagnosed Date [...] as of this encounter (statuses as of 12/12/2023) Resolved Problems Problem Noted Date Diagnosed Date Resolved Date BMI 50.0-59.9, adult 08/18/2021 023 Overview: Per Obesity protocol Elevated BP 08/31/2015 08/31/2015 documented as of this encounter (statuses as of 12/12/2023) Immunizations Name Administration Dates Next Due DTaP [...] No 06/04/2023 Does the household have a [employer] source of income? (Household - for ages [...] No 08/31/2015 documented as of this encounter Miscellaneous Notes * Telephone Encounter - Norma Campos, CARLOS - 12/12/2023 6:23 PM EDT Spoke with pt. She accepted apt on 07/24/24 at 3:[address] Chandler, this was the first available.Added to wait list for sooner apt starting in January. * Telephone Encounter - Jazmin Chandler DO - 12/12/2023 4:07 PM EDT Please schedule a follow-up appointment in about two months for first CPAP check. * Telephone Encounter - Marine Elliott OSA - 12/11/2023 9:47 AM EDT DME order for CPAP submitted to [employer]. documented in this encounter Plan of Treatment Upcoming Encounters Date Type Department Care Team (Late st Contact Info) Description 01/15/2024 10:00 AM EDT Telemedicine Nutrition & Weight Management, [facility] [address] [place] [address] [place], Behavior Class 2 [facility] [address] [place] [address] 01/15/2024 12:00 PM EDT Telemedicine Nutrition & Weight Management, [facility] [address] [place] [address] Denae Riley PA-C 132 [place] [address] 06/16/2024 1:00 PM EST [address] [phone] SeptemberKhoa MD [address] [facility] [place] [address] 07/24/2024 3:20 PM EST Office Visit Sleep Disorders Ctr [facility] [address] [place] [phone] Jazmin Chandler, [address] [place] [address] Health Maintenance Due Date Last Done Comments COVID-19 Vaccine ( season) 2023 02/22/2021, 01/21/2021 Influenza Vaccine (FLU shot) (#1) [...] , 09/20/2022, 08/18/2021 Albumin/Creatinine Ratio 07/24/2025 07/24/2022 DTaP,Tdap,and Td Vaccines (7 - Td or Tdap) 02/17/2026 [...] filedocumented as of this encounter Care Teams Steel Division Supervisor Relationship Specialty Start Date End Date September, Khoa Harrington MD [address] [place] [address] PCP - General Family Medicine 08/30/22 documented as of this encounter
--- OUTSIDE RECORDS SUMMARY | 2024-03-20 13:05 | External Medical Summary ---
Author Name Unknown Address Unknown Organization [id number]:[facility] - [address] [place] [address] Laboratory Report Ordering Provider Test Date Status CORINNE SHINE 02/26/2024 10:07:35 Final Observation Date Value Abnormality Reference (Units ) Status Ferritin 02/26/2024 10:07:35 183 Above high normal 13 -150 (ng/mL) Final Performing Location [facility] - [address] [place] [address]
--- OUTSIDE RECORDS SUMMARY | 2024-03-20 13:05 | External Medical Summary ---
Author Name Unknown Address Unknown Organization [id number]:[facility]ATORY [facility] - [address] [place] [address] Laboratory Report Ordering Provider Test Date Status CORINNE SHINE 02/26/2024 10:07:35 Final Observation Date Value Abnormality Reference (Units ) Status Parathyrin.intact [Mass/volume] in Serum or Plasma 02/26/2024 10:07:35 108 Above high normal 15-65 (pg/mL) Final Performing Location LABORATORY [facility] - [address] [place] [address]
--- OUTSIDE RECORDS SUMMARY | 2024-03-20 13:05 | External Medical Summary ---
Author Name Unknown Address Unknown Organization [id number]:LABORATORY [facility] - [address] [place] [address] Laboratory Report Ordering Provider Test Date Status CORINNE SHINE 02/26/2024 10:07:35 Final Deficient: <20 ng/mL
Ins ufficient: 20-29 ng/mL
Recommended/Optimum:30-50 ng/mL

Vitamin D intoxication is rare. If suspicious of Vitamin D toxicity, evaluation of serum Calcium and PTH is recommended. Observation Date Value Abnormality Reference (Units ) Status 25-OH Vitamin D total 02/26/2024 10:07:35 19 Below low normal >19 (ng/mL) Final Performing Location LABORATORY [facility] - [address] [place] [address]
--- OUTSIDE RECORDS SUMMARY | 2024-03-20 13:05 | External Medical Summary ---
Author Name Unknown Address Unknown Organization : Laboratory Report Ordering Provider Test Date Status CORINNE SHINE 02/26/2024 10:07:35 Final Observation Date Value Abnormality Reference (Units ) Status Zinc, level 02/26/2024 10:07:35 56 Below low normal 6 0-130 (mcg/dL) Final This test was developed and its analytical performance
characteristics have been determined by [employer] [place], [place]. It has
not been cleared or approved by the U.S. Food and Drug
Administration. This assay has been validated pursuant
to the CLIA regulations and is used for clinical
purposes.

Test Performed at:
[facility] [place]
[address] [facility]
[place] [address]
Kaushal Roberto M.D., Ph.D.,Director of Laboratories Performing Location
--- OUTSIDE RECORDS SUMMARY | 2024-03-20 13:05 | External Medical Summary ---
Author Name Unknown Address Unknown Organization K01:LABORATORY [facility] - [address] [place] [address] Laboratory Report Ordering Provider Test Date Status CORINNE SHINE 02/26/2024 10:07:35 Final Observation Date Value Abnormality Reference (Units ) Status Vitamin B12 02/26/2024 10:07:35 257 338-5043 (pg/mL) Final Performing Location LABORATORY [facility] - [address] [place] [address]
--- OUTSIDE RECORDS SUMMARY | 2024-03-20 13:05 | External Medical Summary ---
Author Name Unknown Address Unknown Organization K01:[facility] - [address] [place] [address] Laboratory Report Ordering Provider Test Date Status CORINNE SHINE 02/26/2024 10:07:35 Final Observation Date Value Abnormality Reference (Units ) Status TSH 02/26/2024 10:07:35 6.21 Above high normal 0. 27-4.20 (uIU/mL) Final Performing Location [facility] - [address] [place] [address]
--- OUTSIDE RECORDS SUMMARY | 2024-03-20 13:05 | External Medical Summary | Summary of Care ---
Author Name Unknown Organization [facility] Address [address] [place] [address] Phone [phone] Care Team Providers Care Separator Operator [employer] Name Role Phone Khoa Cruz MD Primary Care Provider [phone] Reason for Visit * Reason Onset Date Comments Other 12/11/2023 DME order Encounter Details Date Type Department Care Team ([facility] st Contact Info) Description 12/11/2023 Telephone Sleep Disorders, [address] [address] Netta Buck MD [address] [place] [address] Other (DME order ) Allergies [...] No 06/04/2023 Does the household have a [facility] source of income? (Household - for ages [...] encounter Miscellaneous Notes * Telephone Encounter - Jazmin Chandler DO - 12/12/2023 4:07 PM EDT Please schedule a follow-up appointment in about two months for first CPAP check. * Telephone Encounter - Marine Elliott OSA - 12/11/2023 9:47 AM EDT DME order for CPAP submitted to [employer]. documented in this encounter Plan of Treatment Upcoming Encounters Date Type Department Care Team (Late st Contact Info) Description 01/15/2024 10:00 AM EDT Telemedicine Nutrition & Weight Management, [facility] 132 [facility] [place] [address] [facility], Behavior Class 2 [facility] 132 [facility] [place] [address] 01/15/2024 12:00 PM EDT Telemedicine Nutrition & Weight Management, [facility] [address] [facility] [place] [address] Denae iRley PA-C 132 [facility] [place] [address] 06/16/2024 1:00 PM EST Office Visit [facility] [address] [place] [phone] September, Khoa Harrington MD [address] [place], [place] [phone] Health Maintenance Due Date Last Done Comments [...] filedocumented as of this encounter Care Teams Separator Operator [employer] Relationship Specialty Start Date End Date September, Khoa Harrington MD [address] [place] [address] PCP - General Family Medicine 08/30/22 documented as of this encounter
--- OUTSIDE RECORDS SUMMARY | 2024-03-20 13:05 | External Medical Summary | Summary of Care ---
Author Name Unknown Organization [facility] Address [address] [place] [address] Phone [phone] Care Team Providers Care Mechanical Detailer Name Role Phone Khoa Cruz MD Primary Care Provider [phone] Encounter Details Date Type Department Care Team (Late st Contact Info) Description 01/15/2024 12:00 PM EDT Telemedicine Nutrition & Weight Management, [facility] [address] [place] [address] Denae Riley PA-C [address] [place] [address] Morbid obesity due to excess calories (HCC)*; Abnormal weight gain; CARLOS (obstructive sleep apnea) Allergies Active Allergy Reactions Criticality Noted Date Comments Pollen 11/02/2023 Rhinitis documented as of this encounter (statuses as of 01/15/2024) Medications Medication Sig Dispensed Refills Start Date End Date Status cloNIDine HCl 0.2 MG Oral Tablet (Catapres) Take 1 Tablet by mouth at bedtime. 09/13/2023 Active Levothyroxine Sodium 100 MCG Oral Tablet (Levoxyl)Indication s:Hypothyroidism, unspecified type Take 1 Tablet by mouth daily first thing in the morning. 90 Tablet 3 12/11/2023 Active Wegovy 0.5 MG/0.5ML Subcutaneous Solution Auto-injector (Semaglutide-Weight Management)Indicati ons:Morbid obesity due to excess calories (HCC) Inject 0.5 mg under the skin once a week. 2 mL 5 01/15/2024 Active Wegovy 0.25 MG/0.5ML Subcutaneous Solution Auto-injector (Semaglutide-Weight Management)Indicati ons:Morbid obesity due to excess calories (HCC) Inject 0.25 mg under the skin once a week. 2 mL 5 11/02/2023 01/15/2024 Discontinued documented as of this encounter (statuses as of 01/15/2024) Active Problems Problem Noted Date Diagnosed Date [...] as of this encounter (statuses as of 01/15/2024) Resolved Problems Problem Noted Date Diagnosed Date Resolved Date BMI 50.0-59.9, adult 08/18/2021 023 Overview: Per Obesity protocol Elevated BP 08/31/2015 08/31/2015 documented as of this encounter (statuses as of 01/15/2024) Immunizations Name Administration Dates Next Due DTaP [...] No 06/04/2023 Does the household have a [facility] source of income? (Household - for ages [...] as of this encounter Progress Notes * Denae Riley PA-C - 01/15/2024 12:04 PM EDT Comprehensive Weight Management Clinic Note Behavior Class Patient location: HOME. I was in a hospital or clinic location. After connecting through [employer],patient was verified with two unique identifiers. Patient (or authorized legal advertising account representative) was then informed that this was a Telemedicine visit and being conducted confidentially over secure lines. Methods to assure confidentiality were taken. Patient acknowledged consent and understanding of pr ivacy and security of the Telemedicine visit. The patient agreed to participate. There are no exam notes on file for this visit. Sarah Sosa presents in follow up to the comprehensive weight management clinic. The patient is a18 year old female Wt Readings from Last 6 Encounters: 12/11/23 (!) 187.4 kg (413 lb 3.2 oz) (>99%, Z= 3.18)* 11/21/23 (!) 193.6 kg (426 lb 14.4 oz) (>99%, Z= 3.20)* 11/13/23 (!) 192.3 kg (424 lb) (>99%, Z= 3.19)* 11/02/23 (!) 192.8 kg (425 lb) (>99%, Z= 3.19)* 08/25/23 (!) 191.9 kg (423 lb) (>99%, Z= 3.15)* 06/04/23 (!) 193.9 kg (427 lb 6.4 oz) (>99%, Z= 3.12)* * Growth percentiles are based on CDC (Girls, 2-20 Years) data. Patient is receiving ongoing education regarding dietary and physical modifications for weight loss. Patient is interested in the following treatment options for obesity: medical management and surgical options including Ashkan-en-Y gastric bypass, biliopancreatic diversion with duodenal switch, or laparoscopic sleeve gastrectomy. - Initial clinic visit 11/02/23. Weight 425 lbs Height 67.32" Body mass index is 65.93 kg/m. -program goal weight: 383lb - Today's weight: 410 lbs - Total weight loss of -15lbs since initial weight in clinic - Patient's last follow up with GI/Nutrition clinic was on 11/21/23. - The patient's weight has -16 lbs since the last visit 01/15/24 -Behavior class -on Wegovy 0.25mg - tolerating well -now tracking with Lose It -having some increased belching 11/21/23 -Nutrition class -has not started Wegovy yet - planning on starting tomorrow -wanted to enjoy eating before starting wegovy Today's Visit 11/02/23 - Overall goal: be healthier, move better - Wt hx: has always struggled - Highest wt as adult: 425lbs - now - Barriers: portions, stress/boredom eating -diagnosed with binge eating disorder by [facility] Previous Weight Management Interventions: The patient has tried weight loss in the past without significant 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 Since the lastvisit there have been no problems with Abdominal pain / cramps and Diarrhea. Current Medications: Current Outpatient Medications Medication Sig Dispense Refill Wegovy 0.5 MG/0.5ML Subcutaneous Solution Auto-injector (Semaglutide-Weight Management) Inject 0.5 mg under the skin once a week. 2 mL 5 cloNIDine HCl 0.2 MG Oral Tablet (Catapres) Take 1 Tablet by mouth at bedtime. Levothyroxine Sodium 100 MCG Oral Tablet (Levoxyl) Take 1 Tablet by mouth daily first thing in the morning. 90 Tablet 3 No current facility-administered medications for this visit. Water intake: yes Current diet: Breakfast-- sausage malika, hashbrown, strawberries Snack-- skips Lunch-- sausage, broccoli, potato Snack-- cheese Dinner-- sausage, broccoli, potato Snack-- skips Drinks-- water, vitamin water Meals Away from Home-- rare Type of exercise: ADL and has PF membership Weight loss Pharmacotherapy: yes Semaglutide 0.25 mg weekly There were no vitals taken for this visit. PHYSICAL EXAMINATION: General: Patient awake alert and oriented. Patient is well appearing and in no acute distress. Skin: No rashes. HEENT: Head is atraumatic, normocephalic. EOMs intact Abdomen: Obese Neuro: No focal deficits Psych: Appropriate mood and affect. Assessment and Plan: Abnormal weight gain / There is no height or weight on file to calculate BMI. / Morbid obesity : - Would like to proceed with medical management and surgical options including Ashkan-en-Y gastric bypass, biliopancreatic diversion with duodenal switch, or laparoscopic sleeve gastrectomy - Barriers are consistency - Motivators are feeling better overall, avoiding/reducing co-morbid conditions - The patient was encouraged to to avoid all fruit juices and regular sodas, consume at least 64 ounces of water per day, keep food logs and get weighed on a weekly basis. They were encouraged to increase physical activity as prescribed. - Handouts regarding nutrition and physical activity were provided, as appropriate. Goals for next month: - Practice what you learned in the classes - Continue with current diet plan - Continue with your exercises and increase as much as possible Diagnoses and all orders for this visit: Morbid obesity due to excess calories (HCC) - Wegovy 0.5 MG/0.5ML Subcutaneous Solution Auto-injector (Semaglutide-Weight Management); Inject 0.5 mg under the skin once a week. 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 Patients were provided with bariatric educational materials. We reviewed the steps that need to be completed prior to moving on to see the surgeon. These steps include: tobacco cessation, modest weight loss, attendance at 2 support groups, payment of program fee, required educational sessions and completion of all ordered medical testing. The behavioral changes required for success after bariatric surgery were reviewed including: eatingslowly, eating small frequent meals, conversion to sugar-free beverages, drinking sufficient water but never with a meal, and caffeine reduction. Information regarding postoperative diet progression (stages 1 thru 4) was provided. Specifics regarding portion guidelines, fat and sugar restriction, fluid and protein requirements were reviewed. The patient was made aware of the importance of adherence to diet for successful weight loss management and prevention of postoperative complications. The need for vitamin and mineral supplementation postoperatively was reviewed. The 2-week pre-surgery liquid diet was also reviewed. Patients are aware they will need a GREEN LIGHT from the Registered Dietitian to proceed to see the surgeon. Behavioral Medicine evaluation was discussed. The patients are aware of the need for a GREEN light to progress to see the surgeon. The patient was instructed to call in the meantime with any concerns or questions prior to patient's upcoming visit. The patient agreed to try the plan as discussed and return in 1 month. They were encouraged to callor send a patient portal message in the meantime with any questions or concerns prior to their nextclinic visit. I spent a total of 20 minutes on the date of service in preparation, delivery, and documentation ofthe care provided to Sarah Sosa excluding any time spent in the performance of separately billedservices. This included but was no limited to providing counseling about the benefits of weight loss, about their nutritional status, detailed explanations about calorie count, types of nutrients to choose, and composition of the meals. Motivational interview provided in order to prepare the patient to achieve future goals. Denae TRAN, MPH [facility] Nutrition and Weight Management [facility] documented in this encounter Plan of Treatment Upcoming Encounters Date Type Department Care Team (Late st Contact Info) Description 06/16/2024 1:00 PM EST Office Visit [facility] [address] [place] [phone] September, Khoa Harrington MD [address] [place] [address] 07/24/2024 3:20 PM EST [facility] Visit [facility] [address] [place] [phone] Jazmin Chandler, [address] [place] [address] Health Maintenance Due Date Last Done Comments [...] Diagnosis Morbid obesity due to excess calories (HCC)- Primary Abnormal weight gain CARLOS (obstructive sleep apnea) Obstructive sleep apnea (adult) (pediatric) documented in this encounter Care Teams Mechanical Detailer Relationship Specialty Start Date End Date September, Khoa Harrington MD [address] [place] [place] [address] PCP - General Family Medicine 08/30/22 documented as of this encounter
--- OUTSIDE RECORDS SUMMARY | 2024-03-20 13:05 | External Medical Summary ---
Author Name Unknown Address Unknown Organization : Laboratory Report Ordering Provider Test Date Status CORINNE SHINE 02/26/2024 10:07:35 Final Observation Date Value Abnormality Reference (Units ) Status Thiamine [Moles/volume] in Blood 02/26/2024 10:07:35 122 78-185 (nmol/L) Final Vitamin supplementation with in 24 hours prior to
blood draw may affect the accuracy of the results.
This test was developed and its analytical performance
characteristics have been determined by [facility] [place], [place]. It has
not been cleared or approved by the U.S. Food and Drug
Administration. This assay has been validated pursuant
to the CLIA regulations and is used for clinical
purposes.

Test Performed at:
[facility]
[address] [facility]
[place] [address]
Kaushal Roberto M.D., Ph.D.,Director of Laboratories Performing Location
--- OUTSIDE RECORDS SUMMARY | 2024-03-20 13:05 | External Medical Summary | Summary of Care ---
Author Name Unknown Organization [facility] Address [address] [place] [address] Phone [phone] Care Team Providers Care Milled Lumber Grader Name Role Phone SeptemberKhoa MD Primary Care Provider [phone] Reason for Visit * Reason Comments Physical-Exam Patient is here toda y for a physical exam.Patient states she would like to discuss her weight loss appointments. Encounter Details Date Type Department Care Team (Latest Contact Info) Description 12/11/2023 1:00 PM EDT Office Visit 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 09/13/2023 Active Wegovy 0.25 MG/0.5ML Subcutaneous Solution Auto-injector (Semaglutide-Weight Management)Indicati ons:Morbid obesity due to excess calories ([facility]) Inject 0.25 mg under the skin once a week. 2 mL 5 11/02/2023 Active Levothyroxine Sodium 100 MCG Oral Tablet (Levoxyl)Indication s:Hypothyroidism, unspecified type Take 1 Tablet by mouth daily first thing in the morning. 90 Tablet 3 12/11/2023 Active Levothyroxine Sodium 100 MCG Oral Tablet [...] as of this encounter (statuses as of 12/11/2023) Active Problems Problem Noted Date Diagnosed Date [...] as of this encounter (statuses as of 12/11/2023) Resolved Problems Problem Noted Date Diagnosed Date Resolved Date BMI 50.0-59.9, adult 08/18/2021 023 Overview: Per Obesity protocol Elevated BP 08/31/2015 08/31/2015 documented as of this encounter (statuses as of 12/11/2023) Immunizations Name Administration Dates Next Due DTaP [...] Influenza Virus Vac cine, Unspecified Formulation 02/27/2022,04/14/2020,02/27/2019,04/03,03/28/2017,02/18/2016,03/16/2015 ,03/28/2012,03/01/2011,02/25/2010,/12/2009,07/16/2009,02/09/2009, 8,02/20/2007,04/09/2006,08/16/2005,06/2004,03/02/2005 Seasonal Influenza, PF, 6 M & [...] Sign Reading Time Taken Comments Blood Pressure 140/80 12/11/2023 12:58 PM EDT Pulse 94 12/11/2023 12:58 PM EDT Temperature 35.9 C (96.6 F) 12/11/2023 1 2:58 PM EDT Respiratory Rate 16 12/11/2023 12:5 8 PM EDT Oxygen Saturation 98% 12/11/2023 12: 58 PM EDT Inhaled Oxygen Concentration - - Weight 187.4 kg (413 lb 3.2 oz) 024 12:58 PM EDT Height 170.2 cm (5' 7") 12/11/2023 12:5 8 PM EDT Body Mass Index 64.72 12/11/2023 12:58 PM EDT documented in this encounter Functional Status [...] as of this encounter Progress Notes * Khoa Cruz MD - 12/11/2023 1:03 PM EDT Images from the original note were not included. Assessment and Plan 1. Hypothyroidism, unspecified type - Levothyroxine Sodium 100 MCG Oral Tablet (Levoxyl); Take 1 Tablet by mouth daily first thing in the morning. Dispense: 90 Tablet; Refill: 3 2. 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 Body mass index (BMI) of 60.0 to 69.9 in adult (HCC) Following with GI nutrition. Plan for surgical intervention in 6 months. Has lost 14 lb. Congratulated on the weight loss. Continue Wegovy 0.25 mg weekly. 4. Encounter for routine preventive care for patient older than 28 days 18-year-old female presenting for yearly physical. Doing very well. Chronic medical conditions stable. Awaiting surgical intervention in 6 months. Up-to-date on health maintenance. Recommend following with dentistry routinely. Wrap-Up Follow up yearly. History of Present Illness The patient is a 18 year old female who presents for yearly physical. 18-year-old female presents for yearly physical. She overall is doing very well. She was currently enrolled in GI nutrition awaiting weight loss surgery. She has been focusing heavily on diet and portion control over the last month and has lost 14-1/2 lb. She feels great. She was on Wegovy 0.25 mg weekly and tolerating well after 3 doses. She also continues on levothyroxine 100 mcg daily for hypot hyroidism. She was due for lab work to monitor vitamin-D and thyroid function. Otherwise she feels well. Denies chest pain or shortness of breath. She was up-to-date on all health maintenance. Physical Exam Vitals: 12/11/23 1258 Temp: 35.9 C (96.6 F) Pulse: 94 Resp: 16 SpO2: 98% BP: 140/80 BMI: 64.7 Physical Exam Physical Exam Vitals reviewed. Constitutional: General: She is not in acute distress. Appearance: She is obese. HENT: Nose: No congestion or rhinorrhea. Eyes: General: No scleral icterus. Pupils: Pupils are equal, round, and reactive to light. Cardiovascular: Rate and Rhythm: Normal rate and regular rhythm. Heart sounds: No murmur heard. Pulmonary: Effort: Pulmonary effort is normal. No respiratory distress. Breath sounds: Normal breath sounds. No wheezing. Abdominal: General: There is no distension. Palpations: Abdomen is soft. Tenderness: There is no abdominal tenderness. Musculoskeletal: Cervical back: Neck supple. Lymphadenopathy: Cervical: No cervical adenopathy. Skin: General: Skin is warm and dry. Findings: No rash. Neurological: General: No focal deficit present. Mental Status: She is alert. This note has been completed in part utilizing [employer] Speech Voice Recognition Software. Due to technical limitations of the software, grammatical errors, random word insertions, prounoun errors, and incomplete sentences may occur. Any formal questions or concerns about the content, text, or information contained within the body of this dictation should be directly addressed to the provider for clarification. documented in this encounter Nursing Notes * Jessica Olivier, MED ASSIST - 12/11/2023 1:03 PM EDT The patient has been properly identified by confirmation of name and date of . Chief Complaint Patient presents with Physical-Exam Patient is here today for a physical exam. Patient states she would like to discuss her weight loss appointments. documented in this encounter Plan of Treatment Upcoming Encounters Date Type Department Care Team (Late st Contact Info) Description 01/15/2024 10:00 AM EDT Telemedicine Nutrition & Weight Management, [facility] [address] [place] [address] [facility] Behavior Class 2 [facility] [address] [place] [address] 01/15/2024 12:00 PM EDT Telemedicine Nutrition & Weight Management, [facility] [address] [facility] [place] [address] Denae Riley PA-C [address] [facility] [place] [address] 06/16/2024 1:00 PM EST Office Visit 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
--- OUTSIDE RECORDS SUMMARY | 2024-03-20 13:05 | External Medical Summary ---
Author Name Unknown Address Unknown Organization : Laboratory Report Ordering Provider Test Date Status CORINNE SHINE 02/26/2024 10:07:35 Final Observation Date Value Abnormality Reference (Units ) Status Vitamin A, level 02/26/2024 10:07:35 44 26- 72 (mcg/dL) Final Vitamin supplementation with in 24 hours prior to
blood draw may affect the accuracy of the results.
This test was developed and its analytical performance
characteristics have been determined by [facility] [place]. It has
not been cleared or approved by the U.S. Food and Drug
Administration. This assay has been validated pursuant
to the CLIA regulations and is used for clinical
purposes.

Test Performed at:
[facility]
[address] [place] [address]
Kaushal Roberto M.D., Ph.D.,Director of Laboratories Performing Location
--- OUTSIDE RECORDS SUMMARY | 2024-03-20 13:05 | External Medical Summary ---
Author Name Unknown Address Unknown Organization [facility] [address] [place] [id number] Laboratory Report Ordering Provider Test Date Status CORINNE SHINE 02/26/2024 10:07:35 Final Observation Date Value Abnormality Reference (Units ) Status BUN 02/26/2024 10:07:35 12 6-20 (mg/dL) Final Creatinine 02/26/2024 10:07:35 0.7 0.5-1.0 (mg/dL) Final Glomerular filtration rate/1.73 sq M.predicted [Volume Rate/Area] in Serum, Plasma or Blood by Creatinine-based formula (CKD-EPI) 02/26/2024 10:07:35 >90 >=60 (mL/min) Final eGFR is calculated based on the CKD-EPI 2020 equation. Sodium 02/26/2024 10:07:35 140 135-146 (m mol/L) Final Potassium 02/26/2024 10:07:35 4.2 3.5-5.1 (m mol/L) Final Cl 02/26/2024 10:07:35 105 98-107 (mm ol/L) Final CO2 02/26/2024 10:07:35 21 Below low normal 22- 32 (mmol/L) Final Anion gap 02/26/2024 10:07:35 14 7-15 (mmol /L) Final Glucose 02/26/2024 10:07:35 85 70-120 (mg /dL) Final Albumin 02/26/2024 10:07:35 4.2 3.8-5.0 (g /dL) Final AST (Aspartate aminotransferase) 02/26/2024 10:07:35 41 Above high normal 10-35 (U/L) Final Alk Phos 02/26/2024 10:07:35 86 35-130 (U/ L) Final Bilirubin, Total 02/26/2024 10:07:35 0.4 <=1 .2 (mg/dL) Final Calcium 02/26/2024 10:07:35 9.9 8.4-10.2 ( mg/dL) Final Protein 02/26/2024 10:07:35 7.1 6.0-8.3 (g /dL) Final ALT (Alanine aminotransferase) 02/26/2024 10:07:35 61 Above high normal 10-35 (U/L) Final Performing Location [facility] [facility] [address]
--- OUTSIDE RECORDS SUMMARY | 2024-03-20 13:05 | External Medical Summary ---
Author Name Unknown Address Unknown Organization [facility] [address] [place] [id number] Laboratory Report Ordering Provider Test Date Status CORINNE SHINE 02/26/2024 10:07:35 Final Observation Date Value Abnormality Reference (Units ) Status WBC, Total 02/26/2024 10:07:35 8.87 4.00-10.8 0 (K/uL) Final RBC 02/26/2024 10:07:35 4.43 3.85-5.15 (M/uL) Final Hemoglobin 02/26/2024 10:07:35 13.6 12.0-15.3 (g/dL) Final HCT 02/26/2024 10:07:35 41.4 36.0-45.2 (%) Final MCV 02/26/2024 10:07:35 93.5 81.5-97.5 (fL) Final MCH 02/26/2024 10:07:35 30.7 27.0-34.0 (pg) Final MCHC 02/26/2024 10:07:35 32.9 32.0-36.0 (g/dL) Final RDW 02/26/2024 10:07:35 12.8 11.5-15.5 (%) Final Platelets 02/26/2024 10:07:35 280 140-400 (K /uL) Final MPV 02/26/2024 10:07:35 10.5 6.6-11.1 ( fL) Final Performing Location LAB[facility]ATORY [facility] [address] [place] [id number]
--- OUTSIDE RECORDS SUMMARY | 2024-03-20 13:05 | External Medical Summary ---
Author Name Unknown Address Unknown Organization [id number]:[facility] [place] [address] [place] [address] Laboratory Report Ordering Provider Test Date Status CORINNE SHINE 02/26/2024 10:07:35 Final Observation Date Value Abnormality Reference (Units ) Status Folic Acid 02/26/2024 10:07:35 5.9 >4.5 (ng/ mL) Final Performing Location [facility] [place] [address] [place] [address]
--- OUTSIDE RECORDS SUMMARY | 2024-03-20 13:05 | External Medical Summary | Summary of Care ---
Author Name Unknown Organization [facility] Address [address] [place] [address] Phone [phone] Care Team Providers Care Manager Configuration Name Role Phone Khoa Cruz MD Primary Care Provider [phone] Reason for Referral * Evaluate & Treat - Unlimited Visits (Within 10 days (routine)) - Authorized Specialty Diagnoses / Procedures Referred By Contac t Referred To Contact Psychology Diagnoses Morbid obesity due to excess calories (HCC) Denae Riley PA-C [address] [place] [address] Referral ID Status Reason Start Date Expiration Date Visits Requested Visits Authorized [id number] Authorized Specialty Services Required 02/26/[phone] Question Answer Referral Priority Within 10 days (routine) Where should this appointment be scheduled? [facility] Is this referral for medication management? No Reason for Referral: Weight/Eating/Bariatric Surgery Specific Condition? Pre-Surgical Bariatric Surgery Eval (Including Early Eval) Reason for Visit * Reason Comments Appointment BMEWaist: 60inNeck: 16.5in * Evaluate & Treat - Unlimited Visits (Within 10 days (routine)) - Authorized Specialty Diagnoses / Procedures Referred By Contact Referred To Contact GI NUTRITION/IM / Gastroenterology Diagnoses BMI 60.0-69.9, adult (HCC) Khoa Cruz MD [address] [place] [address] Referral ID Status Reason Start Date Expiration Date Visits Requested Visits Authorized [id number] Authorized Specialty Services Required 06/04/[phone] Encounter Details Date Type Department Care Team (Late st Contact Info) Description 02/26/2024 8:00 AM EDT Office Visit [facility], [facility] [address] [place] [address] [facility]i [address] [place] [address] Denae Riley PA-C [address] [place] [address] Yomaira Redding RDN [address] [place] [address] Morbid obesity due to excess calories (HCC)*; Abnormal weight gain; CARLOS (obstructive sleep apnea); 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; Hypertriglyceridemia; Binge eating disorder, unspecified severity; Severe episode of recurrent major depressive disorder, without psychotic features (HCC); ADHD (attention deficit hyperactivity disorder), inattentive type; HTN, age 0-18 Allergies Active Allergy Reactions Criticality Noted Date [...] Sign Reading Time Taken Comments Blood Pressure 134/86 02/26/2024 7:55 AM EDT Pulse 97 02/26/2024 7:55 AM EDT Temperature 36.5 C (97.7 F) 02/26/2024 7:55 AM ED T Respiratory Rate - - Oxygen Saturation 97% 02/26/2024 7:55 AM EDT Inhaled Oxygen Concentration - - Weight 182 kg (401 lb 3.2 oz) 02/26/2024 7:55 AM EDT Height 171 cm (5' 7.32") 02/26/2024 7:55 AM EDT Body Mass Index 62.24 02/26/2024 7:55 AM [...] No 08/31/2015 documented as of this encounter Patient Instructions * Patient Instructions* Yomaira Redding RDN - 02/26/2024 9:30 AM EDT Needs to work on to get the Green Light from RD. The goal is to follow at least 90% of the time. Chewing well No eating and drinking at the same time No fluids 30 min before or after meals Meal times 30 min Eliminate caffeine Sipping documented in this encounter Progress Notes * Denae Riley PA-C - 02/26/2024 8:10 AM EDT Bariatric Medical Evaluation Nursing Notes: Malcolm Hills LPN 02/26/24 0815 Signed Chief Complaint Patient presents with Appointment BME Waist: 60in Neck: 16.5in Sarah Sosa is a pleasant 18 year old year old female seen in the [facility] for aninitial evaluation for bariatric surgery. Patient is interested in Gastric Bypass HPI Patient is receiving ongoing education regarding dietary and physical modifications for weight loss. - Initial clinic visit 11/02/23. Weight 425 lbs Height 67.32" Body mass index is 65.93 kg/m. -program goal weight: 383lb - Today's weight: 401 lbs - Total weight loss of -24 lbs since initial weight in clinic - The patient's weight has -9 lbs since the last visit on 01/15/24 Wt Readings from Last 6 Encounters: 02/26/24 (!) 182 kg (401 lb 3.2 oz) (>99%, Z= 3.19)* 12/11/23 (!) 187.4 kg (413 lb 3.2 oz) (>99%, Z= 3.18)* 11/21/23 (!) 193.6 kg (426 lb 14.4 oz) (>99%, Z= 3.20)* 11/13/23 (!) 192.3 kg (424 lb) (>99%, Z= 3.19)* 11/02/23 (!) 192.8 kg (425 lb) (>99%, Z= 3.19)* 08/25/23 (!) 191.9 kg (423 lb) (>99%, Z= 3.15)* * Growth percentiles are based on CDC (Girls, 2-20 Years) data. 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 -self directed: calorie tracking, meal prepping -commercial: -medication: Past Medical History Glaucoma No Hypertension: Yes, no medications CAD: No Congestive heart failure No DVT/PE, clotting disorder: No Stroke: No Seizures: No Sleep Apnea: Yes, on CPAP Asthma: No COPD: No Patient denies personal or family history of medullary thyroid carcinoma. Patient denies personal or family history of multiple endocrine neoplasia syndrome type II Patient denies personal history of pancreatitis Diabetes: No GERD: No History of nephrolithiasis: No. 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 Levothyroxine Sodium 100 MCG Oral Tablet (Levoxyl) Take 1 Tablet by mouth daily first thing in the morning. 90 Tablet 3 Wegovy 0.5 MG/0.5ML Subcutaneous Solution Auto-injector (Semaglutide-Weight Management) Inject 0.5 mg under the skin once a week. 2 mL 5 No current facility-administered medications for this visit. Past Surgical History: Procedure Laterality Date NONE Review of patient's allergies indicates: Allergen Reactions Pollen Rhinitis Psychosocial Lives at home with mom and brother. They are supportive of the patient in the surgery process. Adjustment: Issues with No, no Issues with body image, stress management, relationships, and addiction transfer Depression: Stable Counseling Taking medication Cori with [facility] - therapy, just started yesterday. Bonny with [facility] - medical therapy with [facility] Other Confirmed Mental Health Diagnosis: anxiety/panic disorder Alcohol Use: None Tobacco Use: Never Substance Use: None REVIEW OF SYSTEMS: Review of Systems Gastrointestinal: Negative for abdominal pain, constipation, diarrhea, nausea and vomiting. All other systems reviewed and are negative. Menstrual Cycle: Regular Control: No PHYSICAL EXAMINATION: BP 134/86 | Pulse 97 | Temp 36.5 C (97.7 F) | Ht 1.71 m (5' 7.32") | Wt (!) 182 kg (401 lb 3.2 oz) | SpO2 97% | BMI 62.24 kg/m | BSA 2.94 m Physical Exam Vitals and nursing note reviewed. Constitutional: General: She is not in acute distress. Appearance: She is obese. She is not ill-appearing or toxic-appearing. HENT: Head: Normocephalic and atraumatic. Nose: Nose normal. Mouth/Throat: Mouth: Mucous membranes are moist. Eyes: General: No scleral icterus. Extraocular Movements: Extraocular movements intact. Cardiovascular: Rate and Rhythm: Normal rate and regular rhythm. Heart sounds: Normal heart sounds. No murmur heard. Pulmonary: Effort: Pulmonary effort is normal. No respiratory distress. Breath sounds: Normal breath sounds. No wheezing or rales. Abdominal: Palpations: Abdomen is soft. Musculoskeletal: General: Normal range of motion. Cervical back: Normal range of motion and neck supple. Right lower leg: No edema. Left lower leg: No edema. Skin: General: Skin is warm and dry. Neurological: General: No focal deficit present. Mental Status: She is alert. Psychiatric: Mood and Affect: Mood normal. Behavior: Behavior normal. Sarah was seen today for appointment. Diagnoses and all orders for this visit: Morbid obesity due to excess calories (HCC) - US ABDOMEN LIMITED; Future - ADULT/PEDS PSYCHOLOGY REFERRAL OP - VITAMIN A (RETINOL); Future - VITAMIN B1 (THIAMINE), BLOOD, LC/MS/MS; Future - VITAMIN B12; Future - INSULIN; Future - COMPREHENSIVE METABOLIC PANEL; Future - CBC; Future - HEMOGLOBIN A1C; Future - LIPID PANEL WITHOUT DIRECT LDL; Future - TSH; Future - 25-HYDROXY VITAMIN D; Future - ZINC; Future - FOLIC ACID; Future - PTH; Future - IRON SCREEN, INCLUDING TIBC; Future - FERRITIN; Future - HELICOBACTER PYLORI ANTIGEN, EIA, STOOL; Future -enrolled in bariatric surgery program -patient interested in RYGB - interested in in the future, concerned about malabsorption -continue Wegovy 0.5mg - doing well overall Abnormal weight gain CARLOS (obstructive sleep apnea) -using CPAP intermittently -recommend compliance 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 Discussed that when she becomes sexually active after surgery, OCP is not reliable - Pt is at increased risk of becoming with losing weight, regardless of preconceived notions & should inform denture contour wire specialist provider of bariatric surgery - Following bariatric surgery patient is ADVISED to WAIT for 18-24 months to get . - Following bariatric surgery, OCPs may NOT be EFFECTIVE. In addition they increase r/o VTEs -- Acceptable contraceptive methods such as an IUD, control implants, or NuvaRing should be used. -- Pt should see denture contour wire specialist provider to discuss alternate contraceptive options. Sarah Sosa is encouraged to achieve a modest weight loss via diet, exercise, behavior modification, and pharmacotherapy to facilitate metabolic and physiological parameters. The bariatric surgery procedure and preparation process was reviewed in detail as outlined in the patient education booklet. The importance of permanent lifestyle changes and diet modifications aftersurgery was discussed. The pre- surgical screening process was reviewed in detail with the patient. She understands the need for nutritional, psychological, medical and surgical evaluations prior to surgery. A registered dietitian evaluated the patient today and was instructed in the Stage 2 diet which shewill begin 2 weeks before surgery and continue during the postoperative period. To promote the encouraged weight loss prior to surgery, we discussed the use of a high protein dietfor 2 weeks. This will also help familiarize her with the Stage 2 diet. The patient has attended educational class 1 and class 2 and is scheduled for class 3. She has attended 1 support group meetings. Overall, Ms. Sosa fits the criteria for bariatric surgery and should continue in the pre-screening process. Bariatric Checklist initiated today. Pending successful completion of all the required steps in the evaluation process patient will be moved on to the surgeon. The patient would like to have Gastric Bypass he/she would prefer [facility] Surgeon The patient will return to the Weight Management Clinic in 1 months for surgery class. She was instructed to call the clinic in the meantime with any questions or concerns. I spent a total of 60 minutes on the date of service in preparation, delivery, and documentation ofthe care provided to Sarah Sosa excluding any time spent in the performance of separately billedservices.This included but was no limited to providing counseling about the benefits of weight loss, about their nutritional status, detailed explanations about calorie count, types of nutrients to choose, and composition of the meals. Motivational interview provided in order to prepare the patientto achieve future goals. Denae Riley PA-C, MPH [facility] Nutrition and Weight Management [facility] * Yomaira Redding RDN - 02/26/2024 8:00 AM EDT Bariatric Surgery Evaluation Nutrition Assessment [facility] Name: Sarah Sosa Location: NUTRITION & WEIGHT MANAGEMENT, [facility] Date: 02/26/2024 Time: 7:50 AM Patient was seen [id number] in the clinic. Patient identified by name and . NUTRITION ASSESSMENT: Client History: 18 year old female PMH: Past Medical History: Diagnosis Date ADHD (attention deficit hyperactivity disorder) Anxiety Childhood obesity Depression Hypertension Walking pneumonia At age 7 years Social Demographics: Lives with mom and brother. Family is supportive of weight loss goals. Pt and mom does the cooking and does the grocery shopping. 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 01/15/24 -Behavior class -on Wegovy 0.25mg - tolerating well -now tracking with Lose It -having some increased belching 11/21/23 -Nutrition class -has not started Wegovy yet - planning on starting tomorrow -wanted to enjoy eating before starting wegovy Today's Visit 11/02/23 - Overall goal: be healthier, move better - Wt hx: has always struggled - Barriers: portions, stress/boredom eating Food/Nutrition-Related History: Describes typical diet history/24 hr recall Breakfast: 3 scrambled eggs with veggies half slice of cheese Snacks: does not have all the time but if does will have fruit Lunch: 2 burger patties zucchini periogies Snacks: see above Dinner: 2 burger patties zucchini periogies Snacks: fruit Drinks: water, SF Vitamin Water Caffeine: Gold peak zero sugar iced tea Alcohol: None Restaurant meals: once a week Was tracking with Lose It 1300 kcals but has not been tracking lately. Following My Plate for meal planning Protein:~80 g daily Fluids ~50 oz Diet recall indicates: Inadequate fluid intake Portion control Uses calorie free beverages Good meal distribution Adequate protein intake Progress on Eating Behaviors Has been practicing: Not drinking/eating high sugar/fat items. Decreasing portions and stopping when comfortable, not full. Eating at regular meal times, not grazing or skipping meals. No eating past satiety No straws, no carbonation Needs to work on: Chewing well 75-80% right now No eating and drinking at the same time No fluids 30 min before or after meals Meal times 30 min Eliminate caffeine Sipping Activity Level: ADLs, walking when shopping OBJECTIVE: Patient seen by RD for bariatric surgery evaluation; RD reviewed diet progression s/p bariatric surgery and two-week preoperative high protein liquid diet trial. Reviewed use of high protein, low sugar supplement with patient. Patient was made aware of these harmon points: 1. Diet adherence is critical for successful long-term weight loss management. 2. To avoid postop complications, diet adherence is critical. 3. Vitamin and minerals will be needed for life; compliance to vitamin and mineral supplementation recommendations is important in preventing nutritional deficiencies. 4. Eating behaviors will need to be modified for long-term success. These include: slowing the rateof eating and drinking, converting to kcal free beverages only, chewing food well, and taking fluids within the time guidelines prescribed. Anthropometrics Measurements: Initial clinic visit 11/02/23. Weight 425 lbs Height 67.32" Body mass index is 65.93 kg/m. Highest Weight as Adult: 425 lbs 10/2023 Program goal weight: 383 lb Today's Weight: 401 lbs Weight changes: -24 lbs since initial visit Wt Readings from Last 10 Encounters: 12/11/23 (!) 187.4 kg (413 lb 3.2 oz) (>99%, Z= 3.18)* 11/21/23 (!) 193.6 kg (426 lb 14.4 oz) (>99%, Z= 3.20)* 11/13/23 (!) 192.3 kg (424 lb) (>99%, Z= 3.19)* 11/02/23 (!) 192.8 kg (425 lb) (>99%, Z= 3.19)* 08/25/23 (!) 191.9 kg (423 lb) (>99%, Z= 3.15)* 06/04/23 (!) 193.9 kg (427 lb 6.4 oz) (>99%, Z= 3.12)* 02/13/23 (!) 184.2 kg (406 lb) (>99%, Z= 3.04)* 01/06/23 (!) 179.3 kg (395 lb 3.2 oz) (>99%, Z= 3.01)* 09/20/22 (!) 174.6 kg (385 lb) (>99%, Z= 2.96)* 08/30/22 (!) 170.1 kg (375 lb) (>99%, Z= 2.93)* * Growth percentiles are based on CDC (Girls, 2-20 Years) data. Nutrition Prescription: RMR = 2491 --> x 1.3 activity factor = 3238 Kcals/day for weight maintenance Calorie goal for weight loss = 8116-5743 Kcals/day NUTRITION DIAGNOSIS: Overweight/obesity related to excessive energy intake and physical inactivity as evidenced by BMI of 62.24 kg/m, Class III Obesity. Patient passed written exam. Patient comprehension: Can identify foods and behaviors to modify. READINESS: YELLOW. It is my professional opinion that there are dietary contraindications to proceeding with the bariatric surgery process. There are additional recommendations noted in 'eating behaviors to modify/continue' at the end of the report that should be implemented to enhance this patient's success. Expected outcomes: Demonstrated interest in learning. Expect compliance with diet recommendations. NUTRITION INTERVENTION: Diet orders: Continue dietary modifications as is. Exercise: Add in exercise Dietary Modifications: Eating Behaviors to Modify/Continue: Chewing well No eating and drinking at the same time No fluids 30 min before or after meals Meal times 30 min Eliminate caffeine Sipping NUTRITION MONITORING AND EVALUATION: Plan for Return in 1 month for surgery class. Return Appointment with RD: 2 months Minutes of MNT: 60 Patient advised to use [employer] portal to send any follow up questions. Yomaira Redding RDN documented in this encounter Nursing Notes * Malcolm Hills LPN - 02/26/2024 7:55 AM EDT Chief Complaint Patient presents with Appointment BME Waist: 60in Neck: 16.5in documented in this encounter Plan of Treatment Upcoming Encounters Date Type Department Care Team (Late st Contact Info) Description 02/29/2024 1:20 PM EDT Office Visit [facility] [address] [place] [phone] SeptemberKhoa MD [address] [place] [address] 03/04/2024 8:00 AM EDT Telemedicine Psychology [place] [address] [place] [address] Manda Lewis PsyD [address] [place] [address] 03/04/2024 1:00 PM EDT Imaging Radiology [facility] [address] [facility] [place] [id number] 04/08/2024 12:00 PM EST Telemedicine Nutrition & Weight Management, [facility] [address] [facility] [place] [id number] Denae Riley PA-C [address] [place] [address] 04/08/2024 1:30 PM EST Telemedicine Nutrition & Weight Management, [facility] [address] [facility] [place] [address] [facility], Surgery Class Provider [facility] [address] [facility] [place] [address] 05/20/2024 1:30 PM EST Nutrition Services Nutrition & Weight Management, [facility] [address] [facility] [place] [address] Yomaira Redding RDN [address] [place] [address] 06/16/2024 1:00 PM EST Office Visit [facility] [address] [place] [address] Khoa Cruz MD [address] [place] [address] 07/24/2024 3:20 PM EST Office Visit [facility] [address] [place] [phone] Jazmin Chandler DO [address] [place] [address] Pending Results Name Type Priority Associated Diagnoses [...] excess calories (HCC) 02/26/2024 10:07 AM EDT Scheduled Orders Name Type Priority Associated Diagnoses Orde r Schedule US ABDOMEN LIMITED Medical Imaging Routine Morbid obesity due to excess calories (HCC) Expected: 03/27/2024 (Approximate), Expires: 05/26/2024 VITAMIN A (RETINOL) Lab Routine Morbid obesity due to excess calories (HCC) Expected: 02/26/2024 (Approximate), Expires: 08/24/2024 VITAMIN B1 (THIAMINE), BLOOD, LC/MS/MS Lab Routine Morbid obesity due to excess calories (HCC) Expected: 02/26/2024 (Approximate), Expires: 08/24/2024 VITAMIN B12 Lab Routine Morbid obesity due to excess calories (HCC) Expected: 02/26/2024 (Approximate), Expires: 08/24/2024 INSULIN Lab Routine Morbid obesity due to excess calories (HCC) Expected: 02/26/2024 (Approximate), Expires: 08/24/2024 COMPREHENSIVE METABOLIC PANEL Lab Routine Morbid obesity due to excess calories (HCC) Expected: 02/26/2024 (Approximate), Expires: 08/24/2024 CBC Lab Routine Morbid obesity due to excess calories (HCC) Expected: 02/26/2024 (Approximate), Expires: 08/24/2024 HEMOGLOBIN A1C Lab Routine Morbid obesity due to excess calories (HCC) Expected: 02/26/2024 (Approximate), Expires: 08/24/2024 LIPID PANEL WITHOUT DIRECT LDL Lab Routine Morbid obesity due to excess calories (HCC) Expected: 02/26/2024 (Approximate), Expires: 08/24/2024 TSH Lab Routine Morbid obesity due to excess calories (HCC) Expected: 02/26/2024 (Approximate), Expires: 08/24/2024 25-HYDROXY VITAMIN D Lab Routine Morbid obesity due to excess calories (HCC) Expected: 02/26/2024 (Approximate), Expires: 08/24/2024 ZINC Lab Routine Morbid obesity due to excess calories (HCC) Expected: 02/26/2024 (Approximate), Expires: 08/24/2024 FOLIC ACID Lab Routine Morbid obesity due to excess calories (HCC) Expected: 02/26/2024 (Approximate), Expires: 08/24/2024 PTH Lab Routine Morbid obesity due to excess calories (HCC) Expected: 02/26/2024 (Approximate), Expires: 08/24/2024 IRON SCREEN, INCLUDING TIBC Lab Routine Morbid obesity due to excess calories (HCC) Expected: 02/26/2024 (Approximate), Expires: 08/24/2024 FERRITIN Lab Routine Morbid obesity due to excess calories (HCC) Expected: 02/26/2024 (Approximate), Expires: 08/24/2024 HELICOBACTER PYLORI ANTIGEN, EIA, STOOL Lab Routine Morbid obesity due to excess calories (HCC) Expected: 02/26/2024 (Approximate), Expires: 08/24/2024 Scheduled Referrals Name Type Priority Associated Diagnoses [...] sleep apnea) Obstructive sleep apnea (adult) (pediatric) 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
--- OUTSIDE RECORDS SUMMARY | 2024-03-20 13:05 | External Medical Summary | Summary of Care ---
Author Name Unknown Organization [facility] Address [address] [place] [address] Phone [phone] Care Team Providers Care Talent Sourcer Name Role Phone Khoa Cruz MD Primary Care Provider [phone] Reason for Visit * Reason Onset Date Comments MyCode - Took Form To Consider 12/11/2023 Encounter Details Date Type Department Care Team ([facility] st Contact Info) Description 12/11/2023 Orders Only Outcomes Research Department [address], [place] [id number] Mamie Solo CHRA MyCode Nonconsent Documentation Allergies Active Allergy Reactions Criticality Noted Date Comments Pollen 11/02/2023 Rhinitis documented as of this encounter (statuses as of 12/11/2023) Medications Medication Sig Dispensed Refills Start Date End Date Status cloNIDine HCl 0.2 MG Oral Tablet (Catapres) Take 1 Tablet by mouth at bedtime. 09/13/2023 Active Wegovy 0.25 MG/0.5ML Subcutaneous Solution Auto-injector (Semaglutide-Weight Management)Indications :Morbid obesity due to excess calories (HCC) Inject 0.25 mg under the skin once a week. 2 mL 5 11/02/2023 Active Levothyroxine Sodium 100 MCG Oral Tablet (Levoxyl)Indications:H ypothyroidism, unspecified type Take 1 Tablet by mouth daily first thing in the morning. 90 Tablet 3 12/11/2023 Active documented as of this encounter (statuses [...] as of this encounter Progress Notes * Mamie Solo CHRA - 12/11/2023 1:30 PM EDT Jasonode Nonconsent Documentation Sarah Sosa was approached in the clinic regarding participation in the MyCode Project and did not consent. documented in this encounter Plan of Treatment Upcoming Encounters Date Type Department Care Team (Late st Contact Info) Description 01/15/2024 10:00 AM EDT Telemedicine Nutrition & Weight Management, [facility] [address] [place] [address] [place], Behavior Class 2 [facility] [address] [place] [address] 01/15/2024 12:00 PM EDT Telemedicine Nutrition & Weight Management, [facility] [address] [facility] [place] [address] Denae Riley PA-C [address] [place] [address] 06/16/2024 1:00 PM EST Office Visit [facility] [address] [place] [phone] September, Khoa Harrington MD [address] [place] [address] Health Maintenance Due Date Last Done Comments [...] filedocumented as of this encounter Care Teams Talent Sourcer Relationship Specialty Start Date End Date September, Khoa Harrington MD [address] [place] [address] PCP - General Family Medicine 08/30/22 documented as of this encounter
--- OUTSIDE RECORDS SUMMARY | 2024-03-20 13:05 | External Medical Summary ---
Author Name Unknown Address Unknown Organization K01:LABORATORY C - [address] [place] [address] Laboratory Report Ordering Provider Test Date Status CORINNE SHINE 02/26/2024 10:07:35 Final Observation Date Value Abnormality Reference (Units ) Status Triglyceride 02/26/2024 10:07:35 93 <=174 ( mg/dL) Final Triglyceride Reference Range s (mg/dL):
<150 Acceptable
150-174 Borderline high
175-499 High
>=500 Very high Cholesterol 02/26/2024 10:07:35 157 <200 (mg /dL) Final Total Cholesterol Reference Ranges (mg/dL):
<200 Desirable
200-239 Borderline high
>=240 High HDL 02/26/2024 10:07:35 37 Below low normal >49 (mg/dL) Final HDL Cholesterol Reference Ra nges (mg/dL):
>=60 High (Desirable)
<50 Low (Undesirable) For Females
<40 Low (Undesirable) For Males NON-HDL CHOLESTEROL 02/26/2024 10:07:35 120 <=159 (mg/dL) Final Non-HDL Cholesterol Referenc e Range (mg/dL):
<100 Target level for high risk ASCVD patient
<130 Optimal for general population
130-159 Near optimal for general population
160-189 Borderline High
190-219 High
>=220 Very High LDL, (calculated) 02/26/2024 10:07:35 101 <= 129 (mg/dL) Final LDL Cholesterol Reference Ra nges (mg/dL):
<70 Target level for high risk ASCVD patient
<100 Optimal for general population
100-129 Near optimal for general population
130-159 Borderline high
160-189 High
>=190 Very high Performing Location LABORATORY [facility] [place] - [address] [facility] [address]
--- OUTSIDE RECORDS SUMMARY | 2024-03-20 13:05 | External Medical Summary | Summary of Care ---
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 Allergies Active Allergy Reactions Criticality Noted Date [...] AM EDT Telemedicine Nutrition & Weight Management, [facility] [address] [place] [id number] [place], Behavior Class 2 [facility] [address] [place] [address] 01/15/2024 12:00 PM EDT Telemedicine Nutrition & Weight Management, [facility] [address] [place] [address] Denae Riley PA-C [address] [place] [address] 06/16/2024 1:00 PM EST Office Visit [facility] [address] [place] [phone] SeptemberKhoa MD [address] [place] [address] Pending Results Name Type Priority Associated Diagnoses Date /Time 25-HYDROXY VITAMIN D Lab Routine Hypovitaminosis D 12/11/2023 1:32 PM EDT TSH WITH FREE T4 IF INDICATED Lab Routine 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 12/11/2023 1:32 PM EDT Health Maintenance Due Date Last Done Comments COVID-19 Vaccine ( season) 2023 02/22/2021, 01/21/2021 Influenza Vaccine (FLU shot) (#1) 2024 02/13/2023, 02/13/2023, 02/27/2022, Additional history exists GFR 02/14/2024 02/13/2023, 0801/2022, 10/13/2020, Additional history exists TSH 02/14/2024 02/13/2023, [...] as of this encounter Visit Diagnoses Diagnosis Hypovitaminosis D Unspecified vitamin D deficiency 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
--- OUTSIDE RECORDS SUMMARY | 2024-03-20 13:05 | External Medical Summary ---
Author Name Unknown Address Unknown Organization [id number]:[facility] [place] [address] [place] [address] Laboratory Report Ordering Provider Test Date Status CORINNE SHINE 02/26/2024 10:07:35 Final Observation Date Value Abnormality Reference (Units ) Status Iron 02/26/2024 10:07:35 82 33-151 (ug /dL) Final Iron-binding capacity 02/26/2024 10:07:35 293 250-425 (ug/dL) Final Transferrin Sat % 02/26/2024 10:07:35 28 15 -55 (%) Final Performing Location [facility] [place] [address] [place] [address]
--- OUTSIDE RECORDS SUMMARY | 2024-03-20 13:05 | External Medical Summary ---
Author Name Unknown Address Unknown Organization K01:LABORATORY [facility] [place] - [address] [place] [address] Laboratory Report Ordering Provider Test Date Status FÁTIMAPABLOMAEGAN 02/26/2024 10:07:35 Final Observation Date Value Abnormality Reference (Units ) Status Insulin level 02/26/2024 10:07:35 28 Above high ozzie l 3-25 (uU/mL) Final The above reference interval is based on fasting status. Performing Location LABORATORY [facility] [place] - [address] [place] [address]
--- OUTSIDE RECORDS SUMMARY | 2024-03-20 13:06 | External Medical Summary | Summary of Care ---
Author Name Unknown Organization [facility] Address [address] [place] [address] Phone [phone] Care Team Providers Care Top Lift Scourer Name Role Phone Khoa Cruz MD Primary Care Provider [phone] Reason for Visit * Reason Onset Date Comments Other 12/11/2023 DME order Encounter Details Date Type Department Care Team ([facility] st Contact Info) Description 12/11/2023 Telephone Sleep Disorders, [address] [address] Netta Buck MD [address] [place] [address] Other (DME order ) Allergies Active Allergy Reactions Criticality Noted Date Comments Pollen 11/02/2023 Rhinitis documented as of this encounter (statuses as of 12/11/2023) Medications Medication Sig Dispensed Refills Start Date End Date Status Levothyroxine Sodium 100 MCG Oral Tablet (Levoxyl)Indications :Hypothyroidism, unspecified type Take 1 Tablet by mouth daily first thing in the morning. 90 Tablet 3 02/13/2023 Active cloNIDine HCl 0.2 MG Oral Tablet (Catapres) Take 1 Tablet by mouth at bedtime. 09/13/2023 Active Wegovy 0.25 MG/0.5ML Subcutaneous Solution Auto-injector (Semaglutide-Weight Management)Indicatio ns:Morbid obesity due to excess calories (HCC) Inject 0.25 mg under the skin once a week. 2 mL 5 11/02/2023 Active Additional Information Patient not taking.Reported on 11/21/2023 documented as of this encounter (statuses as [...] encounter Miscellaneous Notes * Telephone Encounter - Marine Elliott OSA - 12/11/2023 9:47 AM EDT DME order for CPAP submitted to [facility] [employer]. documented in this encounter Plan of Treatment Upcoming Encounters Date Type Department Care Team (Late st Contact Info) Description 12/11/2023 1:00 PM EDT [facility] [place] [address] [facility] [phone] September, Khoa Harrington MD [address] [place] [facility] [place] [address] 01/15/2024 10:00 AM EDT Telemedicine Nutrition & Weight Management, [facility] [address] [facility] [place] [address] [facility], Behavior Class 2 [facility] 132 [facility] [place] [address] 01/15/2024 12:00 PM EDT Telemedicine Nutrition & Weight Management, [facility] [place] [address] Denae Riley PA[facility]C [address] [facility] [place] [address] Health Maintenance Due Date Last Done Comments Hepatitis C Screening 2022 COVID-19 Vaccine ( season) 2023 02/22/2021, 01/21/2021 Gonorrhea / Chlamydia Screen 07/25/2023 07/24/2022 Yearly Wellness Visit 09/21/2023 09/20/2022, 022 Influenza Vaccine (FLU shot) (#1) 2024 02/13/2023, 02/13/2023, 02/27/2022, Additional history exists GFR 02/14/2024 02/13/2023, 12/20, 10/13/2020, Additional history exists TSH 02/14/2024 02/13/2023, 06/21, 02/27/2022, Additional history exists Depression Monitoring 06/04/2024 06/04/2023 Albumin/Creatinine Ratio 07/24/2025 07/24/2022 DTaP,Tdap,and Td Vaccines [...] filedocumented as of this encounter Care Teams Top Lift Scourer Relationship Specialty Start Date End Date September, Khoa Harrington MD [address] [place] [address] PCP - General Family Medicine 08/30/22 documented as of this encounter
--- OUTSIDE RECORDS SUMMARY | 2024-03-20 13:06 | External Medical Summary | Summary of Care ---
Author Name Unknown Organization [facility] Address [address] [place] [address] Phone [phone] Care Team Providers Care Tile Presser Name Role Phone SeptemberBaldev MD Primary Care Provider [phone] Encounter Details Date Type Department Care Team (Late st Contact Info) Description 11/15/[address] [facility] [address] [place] [address] SeptemberBaldev MD [address] [place] [address] Vitamin D deficiency Allergies Active Allergy Reactions Criticality Noted Date Comments Pollen 11/02/2023 Rhinitis documented as of this encounter (statuses as of 11/16/2023) Medications Medication Sig Dispensed Refills Start Date End Date Status Levothyroxine Sodium 100 MCG Oral Tablet (Levoxyl)Indications:H [...] a week. 2 mL 5 11/02/2023 Active documented as of this encounter (statuses as of 11/16/2023) Active Problems Problem Noted Date Diagnosed Date [...] as of this encounter (statuses as of 11/16/2023) Resolved Problems Problem Noted Date Diagnosed Date Resolved Date BMI 50.0-59.9, adult 08/18/2021 023 Overview: Per Obesity protocol Elevated BP 08/31/2015 08/31/2015 documented as of this encounter (statuses as of 11/16/2023) Immunizations Name Administration Dates Next Due DTaP [...] encounter Miscellaneous Notes * Telephone Encounter - Tracie Morales LPN - 11/16/2023 2:38 PM EDT Spoke to pt and made aware that the pt needs to come in to have labs drawn for vitamin D levels. They when doctor sees the results he will decide if pt needs to take vitamin D supplement or not. Pt stated understanding. * Telephone Encounter - Baldev Sethi MD - 11/15/2023 8:12 PM EDT Patient needs vitamin D level drawn prior to restarting vitamin D supplementation. Active orders inthe chart. Baldev Sethi MD * Telephone Encounter - Baldev Sethi MD - 11/15/2023 8:12 PM EDTRefused Prescriptions: Disp Refills Vitamin D3 1.25 MG (62941 UT) Oral Capsule 12 Cap*3 Sig: Take 1 Capsule by mouth once a week. Refused By: BALDEV SETHI Reason for Refusal: Other (comment below) * Telephone Encounter - Tracie Morales LPN - 11/15/2023 7:00 PM EDT Did you pend patient's preferred pharmacy and medication before forwarding?yes Pharmacy: [id number] [address] [facility] This medication was on pt's history list as discontinued. Please advise as you see fit. thanks Pending Prescriptions: Disp Refills Vitamin D3 1.25 MG (48641 UT) Oral [id number] Cap*3 Sig: Take 1 Capsule by mouth once a week. Last Visit: 06/04/2023 (in office), Visit date not found (telemedicine) Next Visit: 12/11/2023 If no future appointments scheduled, and last appointment is greater than a year ago, please schedule patient for a follow-up appointment Last date the medication was ordered: 09/20/2022 Is this request for a controlled substance?No Urine Drug Screen:No results found for this or any previous visit. Patient Phone Numbers Labs: Lab Results Component Value Date/Time CREAT 0.6 02/13/2023 10:59 AM CREAT 0.7 03/03/2019 11:59 AM POTASSIUM 4.4 02/13/2023 10:59 AM POTASSIUM 4.5 03/03/2019 11:59 AM TSH 3.51 02/13/2023 10:59 AM TSH 6.49 (H) 07/16/2019 03:22 PM LDLCALC 103 01/16/2022 02:20 PM LDLCALC 03/03/2019 11:59 AM Uninterpretable, recommend direct LDL cholesterol testing. ALT 36 (H) 02/13/2023 10:59 AM ALT 27 03/03/2019 11:59 AM HGBA1C 5.3 02/13/2023 10:59 AM HGBA1C 5.4 03/03/2019 11:59 AM documented in this encounter Plan of Treatment Upcoming Encounters Date Type Department Care Team (Late st Contact Info) Description 11/19/2023 7:00 AM EDT PulmDiagnostic Sleep Lab, [facility] [address] [place] [address] [facility], Sleep Med Day Study [address] [place] [address] 11/21/2023 9:30 AM EDT Nurse Only Nutrition & Weight Management, [facility] [address] [place] [address] [place], Nutrition Ed Class 1 [facility] [address] [place] [address] 11/21/2023 11:20 AM EDT Office Visit Nutrition & Weight Management, [facility] [address] [place] [address] Denae Riley PA-C [address] [place] [address] 12/11/2023 1:00 PM EDT Office Visit [facility] [address] [place] [address] Baldev Sethi MD [address] [place] [address] Health Maintenance Due Date Last Done Comments Hepatitis C Screening 2022 COVID-19 Vaccine (2022- season) 2023 02/22/2021, 01/21/2021 Gonorrhea / Chlamydia Screen 07/25/2023 07/24/2022 Yearly Wellness Visit 09/21/2023 09/20/2022, 022 GFR 02/14/2024 02/13/2023, 12/20, 10/13/2020, Additional history exists TSH 02/14/2024 02/13/2023, 06/21, 02/27/2022, Additional history exists Depression Monitoring 06/04/2024 06/04/2023 Albumin/Creatinine Ratio 07/24/2025 07/24/2022 DTaP,Tdap,and Td Vaccines (7 - Td or Tdap) 02/17/2026 02/18/2016, 11/10/2009, 02/14/2006, Additional history exists Hepatitis B Completed 08/16/2005, 09/19, 2004 GARDASIL-HPV IMMUNIZATION SERIES Completed 06/25/2018, 02/18/2016 MENINGOCOCCAL (MENACTRA/MENVEO) Completed 08/18/2021, 02/18/2016 Influenza Vaccine (FLU shot) Completed , 02/13/2023, 02/27/2022, Additional history exists Pneumococcal Vaccine: Pediatrics (0 to 5 Years) and At-Risk Patients (6 to 64 Years) Aged Out No longer eligible based on patient's age to complete this topic documented as of this encounter Medical Devices Not on filedocumented as of this encounter Visit Diagnoses Diagnosis Vitamin D deficiency Unspecified vitamin D deficiency documented in this encounter Care Teams Tile Presser Relationship Specialty Start Date End Date September, Baldev Harrington MD [address] [place] [address] PCP - General Family Medicine 08/30/22 documented as of this encounter
--- OUTSIDE RECORDS SUMMARY | 2024-03-20 13:06 | External Medical Summary | Summary of Care ---
Author Name Unknown Organization [facility] Address [address] [place] [place] [address] Phone [phone] Care Team Providers Care Magnetic Resonance Imaging Coordinator Name Role Phone Khoa Cruz MD Primary Care Provider [phone] Reason for Visit * Reason Onset Date Comments Pre Cert/Prior Auth 11/05/2023 Encounter Details Date Type Department Care Team (Late st Contact Info) Description 11/05/2023 Telephone Nutrition & Weight Management, [facility] [address] [place] [address] Denae Riley PA-C [address] [place] [address] Pre Cert/Prior Auth Allergies Active Allergy Reactions Criticality Noted Date Comments Pollen 11/02/2023 Rhinitis documented as of this encounter (statuses as of 11/05/2023) Medications Medication Sig Dispensed Refills Start Date End Date Status Levothyroxine Sodium 100 MCG Oral Tablet (Levoxyl)Indications:H ypothyroidism, unspecified type Take 1 Tablet by mouth daily first thing in the morning. 90 Tablet 3 02/13/2023 Active Amphetamine-Dextroamph et ER 15 MG Oral Capsule Extended Release 24 Hour 08/10/2023 Active cloNIDine HCl 0.1 MG Oral Tablet (Catapres) 09/13/2023 Ac tive Wegovy 0.25 MG/0.5ML Subcutaneous Solution Auto-injector (Semaglutide-Weight Management)Indications :Morbid obesity due to excess calories (HCC) Inject 0.25 mg under the skin once a week. 2 mL 5 11/02/2023 Active documented as of this encounter (statuses as of 11/05/2023) Active Problems Problem Noted Date Diagnosed Date [...] as of this encounter (statuses as of 11/05/2023) Resolved Problems Problem Noted Date Diagnosed Date Resolved Date BMI 50.0-59.9, adult 08/18/2021 023 Overview: Per Obesity protocol Elevated BP 08/31/2015 08/31/2015 documented as of this encounter (statuses as of 11/05/2023) Immunizations Name Administration Dates Next Due DTaP [...] money to get more. Never true 06/04/2023 Sex and Gender Information Value Date [...] encounter Miscellaneous Notes * Telephone Encounter - Monika Silva CMA - 11/05/2023 10:18 AM EDT Please Start prior authorization for Wegovy 0.25 MG/0.5ML Subcutaneous Solution Auto-injector (Semaglutide-Weight Management) Diagnosis Morbid obesity due to excess calories (HCC) E66.01 Abnormal weight gain R63.5 Patient qualifies for Weight loss medication due to BMI >30 or BMI >27 with obesity related comorbidity BMI Readings from Last 2 Encounters: 11/02/23 65.93 kg/m (>99%, Z= 5.06)* 08/25/23 66.25 kg/m (>99%, Z= 5.15)* * Growth percentiles are based on CDC (Girls, 2-20 Years) data. Wt Readings from Last 2 Encounters: 11/02/23 (!) 192.8 kg (425 lb) (>99%, Z= 3.19)* 08/25/23 (!) 191.9 kg (423 lb) (>99%, Z= 3.15)* * Growth percentiles are based on CDC (Girls, 2-20 Years) data. Denae Riley PA-C documented in this encounter Plan of Treatment Upcoming Encounters Date Type Department Care Team (Late st Contact Info) Description 11/21/2023 9:30 AM EDT Nurse Only Nutrition & Weight Management, [facility] [address] [place] [address] [place], Nutrition Ed Class 1 [facility] [address] [place] [address] 11/21/2023 11:20 AM EDT Office Visit Nutrition & Weight Management, [facility] [address] [place] [address] Denae Riley PA-C [address] [place] [address] 12/11/2023 1:00 PM EDT Office Visit [facility] [address] [place] [address] September, Khoa Harrington MD [address] [place] [address] Health Maintenance Due Date Last Done Comments [...] filedocumented as of this encounter Care Teams Magnetic Resonance Imaging Coordinator Relationship Specialty Start Date End Date September, Khoa Harrington MD [address] [place] [address] PCP - General Family Medicine 08/30/22 documented as of this encounter
--- OUTSIDE RECORDS SUMMARY | 2024-03-20 13:06 | External Medical Summary ---
Author Name Unknown Address Unknown Organization K01:LABORATORY [facility] [place] - [address] [place] [address] Laboratory Report Ordering Provider Test Date Status 12/11/2023 13:32:41 Final Observation Date Value Abnormality Reference (Units ) Status TSH 12/11/2023 13:32:41 3.20 0.27-4.20 (uIU/mL) Final Performing Location LABORATORY [facility] - [address] [place] [address]
--- OUTSIDE RECORDS SUMMARY | 2024-03-20 13:06 | External Medical Summary | Summary of Care ---
Author Name Unknown Organization [facility] Address [address] [place] [address] Phone [phone] Care Team Providers Care Clay Dry Press Helper Name Role Phone Khoa Cruz MD Primary Care Provider [phone] Reason for Visit * Reason Onset Date Comments Precert Approved 11/05/2023 casey Encounter Details Date Type Department Care Team (Late st Contact Info) Description 11/05/2023 Telephone Nutrition & Weight Management, [facility] [address] [place] [address] Denae Riley PA-C [address] [place] [address] Precert Approved (casey) Allergies Active Allergy Reactions Criticality Noted Date Comments Pollen 11/02/2023 Rhinitis documented as of this encounter (statuses as of 11/08/2023) Medications Medication Sig Dispensed Refills Start Date [...] as of this encounter (statuses as of 11/08/2023) Active Problems Problem Noted Date Diagnosed Date [...] as of this encounter (statuses as of 11/08/2023) Resolved Problems Problem Noted Date Diagnosed Date Resolved Date BMI 50.0-59.9, adult 08/18/2021 023 Overview: Per Obesity protocol Elevated BP 08/31/2015 08/31/2015 documented as of this encounter (statuses as of 11/08/2023) Immunizations Name Administration Dates Next Due DTaP [...] Influenza Virus Vac cine, Unspecified Formulation 02/27/2022,04/14/2020,02/27/2019,04/03,03/28/2017,02/18/2016,03/16/2015 ,03/28/2012,03/01/2011,02/25/2010,04/12/2009,07/16/2009,02/09/2009, 8,02/20/2007,04/09/2006,08/16/2005,06/2004,03/02/2005 Seasonal Influenza, PF, 6 M & [...] Telephone Encounter - Monika Silva CMA - 11/08/2023 8:14 AM EDT Approved/Denied: approved Drug Name and Formulation: wegovy 0.25mg/0.5ml pen How Prescribed(directions/sig): inject 0.25mg weekly Day Supply: 2ml per 28 days Did you receive insurance information from outside the chart? No, received insurance information within the chart Valid auth start date: 11/07/23 Valid auth end date: 05/08/24 Rx Insurance Info: jerardo sofia [place] Reference #: [id number] Karon Sy Medication Oxygen Therapy Teacher II [facility] 11/08/23,8:11 AM * Telephone Encounter - Monika Silva CMA [...] Care Team (Late st Contact Info) Description 11/13/2023 1:40 PM EDT Office Visit [facility] [address] [place] [address] Jazmin Chandler, [address] [place] [address] 11/21/2023 9:30 AM EDT Nurse Only Nutrition & Weight Management, [facility] 132 [facility] [place] [address] [place], Nutrition Ed Class 1 [facility] [place] [address] 11/21/2023 11:20 AM EDT Office Visit Nutrition & Weight Management, [facility] [address] [facility] [place] [address] Denae Riley PA-C [address] [place] [address] 12/11/2023 1:00 PM EDT Office Visit [facility] [address] [place] [address] SeptemberKhoa MD [address] [place] [address] Health Maintenance Due Date Last Done Comments [...] filedocumented as of this encounter Care Teams Clay Dry Press Helper Relationship Specialty Start Date End Date September, Khoa Harrington MD [address] [place] [address] PCP - General Family Medicine 08/30/22 documented as of this encounter
--- OUTSIDE RECORDS SUMMARY | 2024-03-20 13:06 | External Medical Summary | Summary of Care ---
Author Name Unknown Organization [facility] Address [address] [place] [address] Phone [phone] Care Team Providers Care Loom Fixer Name Role Phone Nancy Khoa Harrington MD Primary Care Provider [phone] Reason for Visit * Reason Comments Snoring Pre-bariatric surger y study * Precert (Within 10 days (routine)) - Authorized Specialty Diagnoses / Procedures Referred By Contac t Referred To Contact Sleep Disorders Diagnoses Snoring Sleep apnea, unspecified type Morbid obesity (HCC) HTN, age 0-18 Procedures SLEEP STUDY, W/O CPAP Jazmin Chandler, DO [address] [place] [address] Referral ID Status Reason Start Date Expiration Date V isits Requested Visits Authorized [id number] Authorized 11/13/2023 999 999 Encounter Details Date Type Department Care Team ([facility] st Contact Info) Description 11/19/2023 7:00 AM EDT PulmDiagnostic Sleep Lab, [address] [place] [address] [facility], Sleep Med Day Study [address] [place] [address] Sleep apnea, unspecified type* Allergies Active Allergy Reactions Criticality [...] Influenza Virus Vac cine, Unspecified Formulation 02/27/2022,04/14/2020,02/27/2019,04/03,03/28/2017,02/18/2016,03/16/2015 ,03/28/2012,03/01/2011,02/25/2010,0412/2009,07/16/2009,02/09/2009, 8,02/20/2007,04/09/2006,08/16/2005,06/2004,03/02/2005 Seasonal Influenza, PF, 6 M & [...] as of this encounter Progress Notes * Netta Buck MD - 12/11/2023 6:52 AM EDT Images from the original note were not included. [facility] Sleep Services Polysomnogram - Physician Report Name: Sarah Rosales MR#: [id number] Date of : 2005 Study date: 11/19/2023 Report date: 11/19/2023 Study name: Adult Acquisition ID: [id number] Referring Physician: Jazmin Chandler Ordering Physician: Jazmin Chandler Interpreting Sleep Physician: Netta Buck Signature: Electronically Signed Testing Location: [facility] Impression: Moderate obstructive sleep apnea syndrome exacerbated to the severe degree during REM sleep (AHI=33.7). These respiratory events were associated with oxygen desaturations (nilam of 86 %). Abnormal sleep architecture likely due to respiratory events and first night effect. Recommendations: Auto-PAP vs CPAP titration study. Weight loss is helpful when sleep apnea occurs in the setting of obesity. Extreme caution with driving or operating heavy machinery if feeling sleepy, drowsy or otherwise impaired is advised. Clinical Background: 18-year-old Female with suspected sleep disordered breathing. Weight 424.0 lbs & BMI 66.4 lb/in [place] Sleepiness Scale 4/24 Neck Size 18.5 inches Comorbidities: depression, ADHD, anxiety, binge eating disorder, Dov's thyroiditis, hypertriglyceridemia Lights Off: 9:11:43 AM Lights On: 3:44:31 PM Sleep Architecture: Minutes TRT - Total recording time 392.8 Sleep latency 6.3 SPT - Sleep Period Time 381.5 WASO - Wake time after sleep onset 63.5 TST - Total Sleep Time 323.0 R Sleep latency minus wake 183.5 Sleep efficiency 82.2% TST Stage N1 41.5 12.8% Stage N2 187.0 57.9% Stage N3 50.0 15.5% Stage R 44.5 13.78% Respiratory Event Summary * TST NREM REM ~Supine Supine Prone Left Right Apneas Count 0 0 0 0.00 0 0 0 Index 0.0 0.0 0.0 0.00 0.0 0.0 0.0 Hypopneas (3%) Count 96 71 25 96.00 91 0 5 Index 17.8 15.3 33.7 17.83 17.6 0.0 24.0 Hypopneas (4%) Count 55 39 16 Index 10.2 8.4 21.6 AHI (3%) Count 96 71 25 96.00 91 0 5 Index 17.8 15.3 33.7 17.83 17.6 0.0 24.0 AHI (4%) Count 55 39 16 Index 10.2 8.4 21.6 RDI (3%) (Shaker Repairer+All Hyp+RERA) Count 96 71 25 96.00 91 0 5 Index 17.8 15.3 33.7 17.83 17.6 0.0 24.0 RDI (4%) (Shaker Repairer+All Hyp+RERA) Count 55 39 16 Index 10.2 8.4 21.6 Respiratory Related Arousal Count 0 0 0 0.00 0 0 0 Index 0.0 0.0 0.0 0.00 0.0 0.0 0.0 Oxygen Desaturation Count 116 86 26 Index 21.6 18.6 35.1 Arousals: Index Respiratory related 5 0.9/hr PLM related 0 0.0/hr Spontaneous 36 6.7/hr Total 41 7.6/hr Movement Events: Index Total PLMs 0 N/A/hr PLMs associated with arousals 0 N/A/hr Respiratory Events: Index Central 0 0.0/hr Obstructive 0 0.0/hr Mixed 0 0.0/hr Hypopneas 96 17.8/hr RERA's 0 0.0/hr AHI = Apneas + Hypopneas 96 17.8/hr RDI = Apneas + Hypopneas +RERA's 96 17.8/hr No episodes of periodic breathing were found. Snoring was recorded. Oxygenation: Min. Sat. Avg. Sat. Awake - 95% N sleep - 93% REM - 94% Overall 86% 93% Time spent ?88%: 0.60 minutes. Supplemental O2 was not utilized. Body Position Analysis Supine Right Left Side Prone Vertical Total Sleep Time (min.) 12.5 0.0 12.50 310.5 0.0 Total Sleep Time (%) 0.00 3.87 0.00 3.87 96.13 0.00 Total Sleep Time REM (min.) 0.0 0.0 0.00 44.5 0.0 Total Sleep Time NREM (min.) 12.5 0.0 12.50 266.0 0.0 Total Sleep Period (min.) 21.5 0.2 21.70 357.7 2.1 Oximetry Data Min SpO2 value TST: 86% Average SpO2 (TIB): 93% Min SpO2 w/ Respiratory Event: 86% Average SpO2 (TST): 93.50% Desaturations #: 116 Desaturation Index: 21.6 /hr Oximetry Distribution WK NREM REM TIB TST Min % Min % Min % Min % Min % >90% 65.70 94.13 276.50 99.28 44.10 99.10 386.30 98.35 320.60 99.26 80 - 89% 0.00 0.00 1.50 0.54 0.40 0.90 1.90 0.48 1.90 0.59 70 - 79% 0.00 0.00 0.00 0.00 0.00 0.00 0.00 0.00 0.00 0.00 60 - 69% 0.00 0.00 0.00 0.00 0.00 0.00 0.00 0.00 0.00 0.00 50 - 59% 0.00 0.00 0.00 0.00 0.00 0.00 0.00 0.00 0.00 0.00 ?88%* 0.0 0.0 0.4 0.1 0.2 0.1 0.6 0.2 0.60 0.19 Fail (min) 4.1 5.87 0.5 0.18 0.0 0.00 4.6 1.17 0.50 0.15 EtCO2 SUMMARY EtCO2 Trend EtCO2 distribution (all durations are in minutes) WAKE REM NREM Total >=75 0.0 0.0 0.0 0.0 >=65 0.0 0.0 0.0 0.0 >=55 0.0 0.0 0.0 0.0 >=50 0.0 0.0 0.0 0.0 >=47 0.0 0.0 0.0 0.0 >=40 25.7 44.5 221.5 291.7 >=30 25.8 44.5 221.5 291.8 >0 Rejected 44.0 0.0 57.0 101.0 Average 42 43 43 43 Highest EtCO2 during TIB :44 Total number of Hypercapnia events during TIB :0 Cardiac Events: Min bpm Average Pulse Rate During Sleep (TST): 77.5 bpm Highest Pulse Rate During Sleep (TST): 110 bpm Highest Pulse Rate During Recording (TIB): 119 bpm Comments / Artifact / Quality of the Study The polysomnographic recording quality was satisfactory for interpretation. No significant artifacts were found. Technical & Digital Specifications for the Recording and Scoring of Sleep and Associated Events: A standard polysomnogram with and/or without positive airway pressure (PAP) was performed monitoring EEG, EOG, EMG (chin and leg derivations), oxygen saturation, body position, digital video, respiratory effort and airflow. The Sleep Stage and Event scoring was based on the AASM Manual for the Scoring of Sleep and Associated Events, Version 2.5. Apnea in adults is scored when there is a drop in the peak signal excursion by ? 90% of pre-event baseline using an oronasal thermal sensor (diagnosticstudy), PAP device flow (titration study), or an alternative apnea sensor, for ? 10 seconds. Hypopnea in an AHI-4% in adults is scored when the peak signal excursions drop by ? 30% of pre-event baseline using nasal pressure (diagnostic study), PAP device flow (titration study), or an alternative hypopnea sensor, for ? 10 seconds in association with a >4% arterial oxygen desaturation from pre-event baseline. Hypopnea in an AHI-3% in adults is scored when the peak signal excursions drop by ? 30% of pre-event baseline using nasal pressure (diagnostic study), PAP device flow (titration study),or an alternative hypopnea sensor, for ? 10 seconds in association with a >3% arterial oxygen desaturation from pre-event baseline or in association with an arousal. Respiratory effort-related arousals (RERA's) are defined as a sequence of breaths lasting at least 10 seconds characterized by increasing respiratory effort or flattening of the nasal pressure waveform leading to an arousal from sleep when the sequence of breaths which does not meet criteria for an apnea or hypopnea. Apnea Hypopnea Index (AHI) is defined as the number of apneas and hypopneas occurring in an hour of sleep. Respiratory Disturbance Index (RDI) is defined as the number of apneas, hypopneas, and RERA's occurring in an hour of sleep. MD KAROLYN OwenA Board Certified Internal/Sleep Medicine [facility] (phone) (fax) documented in this encounter Nursing Notes * Key Pierre RPSGT - 11/19/2023 4:41 PM EDT Test: Completed Nocturnal Polysomnogram/NPSG without CPAP [place] total score: 09/11 Neck Circumference: 18.5 inches Patient received Drowsy Driving Information: yes Patient has no defibrillator, pacemaker, cochlear implant, or any devices affected by a magnet. Baseline SpO2 level was96% on room air. Baseline heart rate was 103 bpm. Baseline TCCO2 level was 39 mmHg, nREM was 42 mmHg and REM was 43 mmHg. She slept on her right side and prone with her face pushed into the pillow during the study. Sleep onset latency was approximately 6 minutes. All stages of sleep were noted. Hypopneas were noted. Most of her respiratory events occurred with a 3% desaturation from baseline.Cardiac arrhythmia was noted- PVC. Her AHI @ 4% at 1 pm was 6.8, therefore she did not meet the split for AHI > 15 as ordered. Snoring was rated as mild to moderate at a level of 1-3, with 0 being no snore and 5 being a snore loud enough to hear through the closed door. She was not up to use the restroom during the study. This afternoon the patient reports the quantity of her sleep was less than her usual and the quality of her sleep was poorer than her usual. * Key Pierre RPSGT - 11/19/2023 7:40 AM EDT No new cough, SOB, flu like symptoms, loss of taste, or loss of smell. No exposure to COVID-19 or flu in the last 14 days. LYNDA Reyes's in [place] Sleep position - side sleeper No PSG in the past. No previous therapy. No sleep aides prior to PSG. documented in this encounter Plan of Treatment Upcoming Encounters Date Type Department Care Team (Late st Contact Info) Description 12/11/2023 1:00 PM EDT Office Visit [facility] [address] [place] [id number] September, Khoa Harrington MD [address] [place] [address] 01/15/2024 10:00 AM EDT Telemedicine Nutrition & Weight Management, [facility] [address] [place] [address] [facility] Class 2 [facility] [address] [place] [address] 01/15/2024 12:00 PM EDT Telemedicine Nutrition & Weight Management, [facility] [address] [place] [address] Denae Riley PA-C [address] [facility] [place] [address] Scheduled Orders Name Type Priority Associated Diagnoses Orde r Schedule SLEEP STUDY, W/O CPAP Procedures Routine Snoring Sleep apnea, unspecified type Morbid obesity (HCC) HTN, age 0-18 Ordered: 11/13/2023 Health Maintenance Due Date Last Done Comments Hepatitis C Screening 2022 COVID-19 Vaccine ( season) 2023 02/22/2021, 01/21/2021 Gonorrhea / Chlamydia Screen 07/25/2023 07/24/2022 Yearly Wellness Visit 09/21/2023 09/20/2022, 022 Influenza Vaccine (FLU shot) (#1) 2024 02/13/2023, 02/13/2023, 02/27/2022, Additional history exists GFR 02/14/2024 02/13/2023, 08/01/2022, 10/13/2020, Additional history exists TSH 02/14/2024 02/13/2023, 0210/2022, 02/27/2022, Additional history exists Depression Monitoring 06/04/2024 [...] as of this encounter Visit Diagnoses Diagnosis Sleep apnea, unspecified type- Primary documented in this encounter Care Teams Loom Fixer Relationship Specialty Start Date End Date September, Khoa Harrington MD [address] [place] [address] PCP - General Family Medicine 08/30/22 documented as of this encounter
--- OUTSIDE RECORDS SUMMARY | 2024-03-20 13:06 | External Medical Summary | Summary of Care ---
Author Name Unknown Organization [facility] Address [address] [place] [address] Phone [phone] Care Team Providers Care Games Dealer Name Role Phone Khoa Cruz MD Primary Care Provider [phone] Reason for Visit * Reason Onset Date Comments Order Request 12/11/2023 Encounter Details Date Type Department Care Team ([facility] Contact Info) Description 12/11/2023 Telephone Sleep Lab, [address] [address] Netta Buck MD [address] [place], [place] [id number] Order Request Allergies Active Allergy Reactions Criticality Noted Date [...] Description 12/11/2023 1:00 PM EDT Office Visit [address] [address] September, Khoa Harrington MD [address] [place] [address] 01/15/2024 10:00 AM EDT Telemedicine Nutrition & Weight Management, [facility] [address] [place] [address] [facility], Behavior Class 2 [facility] [address] [facility] [place] [address] 01/15/2024 12:00 PM EDT Telemedicine Nutrition & Weight Management, [facility] [address] [facility] [place] [address] Denae Riley PA-C [address] [place] [address] Health Maintenance Due Date Last Done Comments [...] as of this encounter Visit Diagnoses Diagnosis CARLOS (obstructive sleep apnea)- Primary Obstructive sleep apnea (adult) (pediatric) documented in this encounter Care Teams Games Dealer Relationship Specialty Start Date End Date September, Khoa Harrington MD [address] [place] [address] PCP - General Family Medicine 08/30/22 documented as of this encounter
--- OUTSIDE RECORDS SUMMARY | 2024-03-20 13:06 | External Medical Summary | Summary of Care ---
Author Name Unknown Organization [facility] Address [address] [place] [place] [address] Phone [phone] Care Team Providers Care Silverware Buffing Machine Operator Name Role Phone NancyKhoa MD Primary Care Provider [phone] Reason for Visit * Reason Comments Weight Management The pt stated she is here for Nutrition Class * Precert (Within 30 days (routine)) - Authorized Specialty Diagnoses / Procedures Referred By Dhaval t Referred To Contact Gastroenterology Diagnoses Morbid (severe) obesity due to excess calories (HCC) Procedures NE NUTRITION CLASS Nutrition And Weight Management [facility] [address] [place] [address] Referral ID Status Reason Start Date Expiration Date V isits Requested Visits Authorized [id number] Authorized Precert 11/05/2023 11/04/2024 999 999 Encounter Details Date Type Department Care Team (Late st Contact Info) Description 11/21/2023 11:20 AM EDT Office Visit Nutrition & Weight Management, [facility] [address] [place] [address] Denae Riley PA-C [address] [place] [address] Morbid obesity due to excess calories (HCC)*; Abnormal weight gain; Disordered sleep Allergies Active Allergy Reactions Criticality Noted Date Comments Pollen 11/02/2023 Rhinitis documented as of this encounter (statuses as of 11/21/2023) Medications Medication Sig Dispensed Refills Start Date [...] as of this encounter (statuses as of 11/21/2023) Active Problems Problem Noted Date Diagnosed Date [...] as of this encounter (statuses as of 11/21/2023) Resolved Problems Problem Noted Date Diagnosed Date Resolved Date BMI 50.0-59.9, adult 08/18/2021 023 Overview: Per Obesity protocol Elevated BP 08/31/2015 08/31/2015 documented as of this encounter (statuses as of 11/21/2023) Immunizations Name Administration Dates Next Due DTaP [...] Sign Reading Time Taken Comments Blood Pressure 138/78 11/21/2023 10:47 AM EDT Pulse 96 11/21/2023 10:47 AM EDT Temperature 36.7 C (98.1 F) 11/21/2023 1 0:47 AM EDT Respiratory Rate - - Oxygen Saturation 98% 11/21/2023 10: 47 AM EDT Inhaled Oxygen Concentration - - Weight 193.6 kg (426 lb 14.4 oz) 2023 10:47 AM EDT Height 170.2 cm (5' 7") 11/21/2023 10:4 7 AM EDT Body Mass Index 66.86 11/21/2023 10:47 AM EDT documented in this encounter Functional [...] Progress Notes * Denae Riley PA-C - 11/21/2023 11:20 AM EDT Comprehensive Weight Management Clinic Note Nutrition Class Nursing Notes: Malcolm Hills LPN 11/21/23 1048 Signed Chief Complaint Patient presents with Weight Management The pt stated she is here for Nutrition Class Sarah Sosa presents in follow up to the comprehensive weight management clinic. The patient is a18 year old female Wt Readings from Last 6 Encounters: 11/21/23 (!) 193.6 kg (426 lb 14.4 oz) (>99%, Z= 3.20)* 11/13/23 (!) 192.3 kg (424 lb) (>99%, Z= 3.19)* 11/02/23 (!) 192.8 kg (425 lb) (>99%, Z= 3.19)* 08/25/23 (!) 191.9 kg (423 lb) (>99%, Z= 3.15)* 06/04/23 (!) 193.9 kg (427 lb 6.4 oz) (>99%, Z= 3.12)* 02/13/23 (!) 184.2 kg (406 lb) (>99%, Z= 3.04)* * Growth percentiles are based on CDC [...] -program goal weight: 383lb - Today's weight: 426 lbs - Total weight loss of +1 since initial weight in clinic - Patient's last follow up with GI/Nutrition clinic was on 11/02/23. - The patient's weight has +1 lbs since the last visit Insurance: Patient has active [facility] coverage and Bariatric Surgery is a covered benefit if the Medical Policy criteria are met. The patient is required to complete 6 months nutrition and weight management in the twelve (12) month period that immediately precedes the scheduled surgery per the Medical Policy guidelines. Current BMI 65.93 does meet the criteria. Eff 05/21/2021 Must have current referral from PCP to see a surgeon 11/21/23 -Nutrition class -has not started Wegovy yet - planning on starting tomorrow -wanted to enjoy eating before starting wegovy Today's Visit 11/02/23 - Overall goal: be healthier, move better - Wt hx: has always struggled - Highest wt as adult: 425lbs - now - Barriers: portions, stress/boredom eating -diagnosed with binge eating disorder by [place] Previous Weight Management Interventions: The patient has tried weight loss in the past without significant long term care social worker success. -self directed: calorie tracking, meal prepping [...] Current Outpatient Medications Medication Sig Dispense Refill Levothyroxine Sodium 100 MCG Oral Tablet (Levoxyl) Take 1 Tablet by mouth daily first thing in the morning. 90 Tablet 3 cloNIDine HCl 0.2 MG Oral Tablet (Catapres) Take 1 Tablet by mouth at bedtime. Wegovy 0.25 MG/0.5ML Subcutaneous Solution Auto-injector (Semaglutide-Weight Management) Inject 0.25 mg under the skin once a week. (Patient not taking: Reported on 11/21/2023) 2 mL 5 No current facility-administered medications for this visit. Current diet: -just started working on [employer] this week - for breakfast only -trying to have meat, veggie, potato at supper Exercise: ADL Weight loss Pharmacotherapy: no BP 138/78 | Pulse 96 | Temp 36.7 C (98.1 F) | Ht 1.702 m (5' 7") | Wt (!) 193.6 kg (426 lb 14.4oz) | SpO2 98% | BMI 66.86 kg/m | BSA 3.03 m PHYSICAL EXAMINATION: General: Patient awake alert and oriented. Patient is well appearing and in no acute distress. Skin: No rashes. HEENT: Head is atraumatic, normocephalic. EOMs intact Abdomen: Obese Neuro: No focal deficits Psych: Appropriate mood and affect. Assessment and Plan: Abnormal weight gain / Body mass index is 66.86 kg/m. / Morbid obesity : - Would like [...] exercises and increase as much as possible Sarah was seen today for weight management. 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 The dietitian provided information regarding dietary/behavioral changes necessary for before and after surgery as well as provided ideas/suggestions to work towards a modest presurgical weight loss. Specifics regarding portion guidelines (now and after surgery), fat and sugar restriction (for now and after surgery), and eating behavior modification requirements were highlighted. The patient was made aware of the importance of adherence to diet for successful weight loss prior to surgery for potential prevention and decreased risk of postoperative complications. Reviewed need for vitamin and mineral supplementation postoperatively. Handouts reviewed: Behavior Modification for Bariatric Surgery, Serving Sizes, Plate Method, Helpful Weight Loss Tips. The patient agreed to try the plan as discussed and return in 1 month for Behavior class. They wereencouraged to call or send a patient portal message in the meantime with any questions or concerns prior to their next clinic visit. I spent a total of 20 [...] to achieve future goals. Denae TRAN, MPH [facility] Nutrition and Weight Management [facility] documented in this encounter Nursing Notes * Malcolm Hills LPN - 11/21/2023 10:47 AM EDT Chief Complaint Patient presents with Weight Management The pt stated she is here for Nutrition Class documented in this encounter Plan of Treatment Upcoming Encounters Date Type Department Care Team (Late st Contact Info) Description 12/11/2023 1:00 PM EDT Office Visit [facility] [address] [facility], [place] [phone] September, Khoa Harrington MD [address] [facility], [place] [address] 01/15/2024 10:00 AM EDT Telemedicine Nutrition & Weight Management, [facility] [address] [place] [address] [facility], Behavior Class 2 [facility] [address] [place] [address] 01/15/2024 12:00 PM EDT Telemedicine Nutrition & Weight Management, [facility] [address] [place] [address] Denae Riley PA-C [address] [place] [address] Health Maintenance Due Date Last Done Comments [...] excess calories (HCC)- Primary Abnormal weight gain Disordered sleep Sleep disturbance, unspecified documented in this encounter Care Teams Silverware Buffing Machine Operator Relationship Specialty Start Date End Date September, Khoa Harrington MD [address] [place] [address] PCP - General Family Medicine 08/30/22 documented as of this encounter
--- OUTSIDE RECORDS SUMMARY | 2024-03-20 13:06 | External Medical Summary ---
Author Name Unknown Address Unknown Organization [id number]:[place] [facility] [place] [address] [place] [address] Laboratory Report Ordering Provider Test Date Status 12/11/2023 13:32:41 Final Deficient: <20 ng/mL
Ins ufficient: 20-29 ng/mL
Recommended/Optimum:30-50 ng/mL

Vitamin D intoxication is rare. If suspicious of Vitamin D toxicity, evaluation of serum Calcium and PTH is recommended. Observation Date Value Abnormality Reference (Units ) Status 25-OH Vitamin D total 12/11/2023 13:32:41 29 >19 (ng/mL) Final Performing Location LABORATORY C - [address] [place] [address]
--- OUTSIDE RECORDS SUMMARY | 2024-03-20 13:06 | External Medical Summary | Summary of Care ---
Author Name Unknown Organization [facility] Address [address] [place] [address] Phone [phone] Care Team Providers Care Installment Dealer Name Role Phone Khoa Cruz MD Primary Care Provider [phone] Reason for Referral * Evaluate & Treat - Unlimited Visits (Within 10 days (routine)) - Authorized Specialty Diagnoses / Procedures Referred By Contac t Referred To Contact Sleep Medicine / Sleep Disorders Diagnoses Morbid obesity due to excess calories (HCC) Denae Riley PA-C [address] [place] [address] Referral ID Status Reason Start Date Expiration Date Visits Requested Visits Authorized [id number] Authorized Specialty Services Required 11/02/2023 2 2 Question Answer GS CAD SLEEP MED ADULT REFERRAL Sleep Apnea Testing and Management Does the patient snore and/or gasp at night or has been told they stop breathing at night? Yes, document patient's symptoms in progress note Referral Priority Within 10 days (routine) Where should this appointment be scheduled? [facility] Reason for Visit * Reason Comments Weight Management The pt stated she wo uld like to discuss weight loss options and bariatric surgeryWaist 67inNeck 17in * Evaluate & Treat - Unlimited Visits (Within 10 days (routine)) - Authorized Specialty Diagnoses / Procedures Referred By Contact Referred To Contact GI NUTRITION/IM / Gastroenterology Diagnoses BMI 60.0-69.9, adult (HCC) Khoa Cruz MD [facility] [place] [address] Referral ID Status Reason Start Date Expiration Date Visits Requested Visits Authorized [id number] Authorized Specialty Services Required 06/04/2023 [id number] Encounter Details Date Type Department Care Team (Latest Contact Info) Description 11/02/2023 1:00 PM EDT Office Visit Nutrition & Weight Management, [facility] [address] [place] [address] Denae Riley PA-C [address] [place] [address] Morbid obesity due to excess calories (HCC)*; Abnormal weight gain; 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 90 Tablet 3 02/13/2023 Active Amphetamine-Dextro amphet ER 15 MG Oral Capsule Extended Release 24 Hour 08/10/2023 Active cloNIDine HCl 0.1 MG Oral Tablet (Catapres) 09/13/2023 Active Wegovy 0.25 MG/0.5ML Subcutaneous Solution Auto-injector (Semaglutide-Weigh t Management)Indicat ions:Morbid obesity due to excess calories (HCC) Inject 0.25 mg under the skin once a week. 2 mL 5 11/02/2023 Active Sertraline HCl 100 MG Oral Tablet (Zoloft) Take 1 Tablet by mouth in the morning. 30 Tablet 1 06/09/2022 11/02/2023 Discontinued Amphetamine-Dextro amphet ER 10 MG Oral Capsule Extended Release 24 Hour (Adderall XR) Take 1 Capsule by mouth in the morning. 05/30/2023 11/02/2023 Discontinued documented as of this encounter (statuses as of 11/02/2023) Active Problems Problem Noted Date Diagnosed Date [...] as of this encounter (statuses as of 11/02/2023) Resolved Problems Problem Noted Date Diagnosed Date Resolved Date BMI 50.0-59.9, adult 08/18/2021 023 Overview: Per Obesity protocol Elevated BP 08/31/2015 08/31/2015 documented as of this encounter (statuses as of 11/02/2023) Immunizations Name Administration Dates Next Due DTaP [...] Sign Reading Time Taken Comments Blood Pressure 146/82 11/02/2023 12:57 PM EDT Pulse 106 11/02/2023 12:57 PM EDT Temperature 36.5 C (97.7 F) 11/02/2023 12:57 PM E DT Respiratory Rate - - Oxygen Saturation 97% 11/02/2023 12:57 PM EDT Inhaled Oxygen Concentration - - Weight 192.8 kg (425 lb) 11/02/2023 12:57 PM EDT Height 171 cm (5' 7.32") 11/02/2023 12:57 PM EDT Body Mass Index 65.93 11/02/2023 12:57 PM EDT documented in this encounter Functional [...] Progress Notes * Denae Riley PA-C - 11/02/2023 1:01 PM EDT COMPREHENS[facility] WEIGHT MANAGEMENT CLINIC CONSULTATION INITIAL CONSULT Referring Physician: Khoa Cruz MD Nursing Notes: Malcolm Hills LPN 11/02/23 1300 Signed Chief Complaint Patient presents with Weight Management The pt stated she would like to discuss weight loss options and bariatric surgery Waist 67in Neck 17in Source of information: Patient Available records reviewed: Recent provider visits, Imaging, and Labs Reason for Referral: Weight Management. 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 HPI: The patient suffers from Morbid obesity Patient is interested in the following treatment options for obesity: medical management and surgical options including Ashkan-en-Y gastric bypass, biliopancreatic diversion with duodenal switch, or laparoscopic sleeve gastrectomy. - Initial clinic visit 11/02/23. Weight 425 lbs Height 67.32" Body mass index is 65.93 kg/m. -program goal weight: 383lb Today's Visit 11/02/23 - Overall goal: be healthier, move better - Wt hx: has always struggled - Highest wt as adult: 425lbs - now - Barriers: portions, stress/boredom eating -diagnosed with binge eating disorder by [place] Previous Weight Management Interventions: The patient has tried weight loss in the past without significant rodent exterminator success. -self directed: calorie tracking, meal prepping -commercial: -medication: Wt Readings from Last 8 Encounters: 11/02/23 (!) 192.8 kg (425 lb) [...] 170.1 kg (375 lb) (>99%, Z= 2.93)* 08/04/22 (!) 170.6 kg (376 lb) (>99%, Z= 2.93)* * Growth percentiles are based on CDC (Girls, 2-20 Years) data. Current Diet: Describes typical diet history/24 hr recall Breakfast: usually skips Snacks: skips Lunch: 3 hot dogs, mac and cheese Snacks: chicken nuggets and fries - [employer] Dinner: steak, potato, peas Snacks: skips Drinks: cranberry juice, diet soda Restaurant meals: twice a week, several times a week Activity: ADL Past Medical History Patient Active Problem List Diagnosis HTN, age 0-18 ADHD (attention deficit hyperactivity disorder), inattentive type Hypertriglyceridemia Anxiety and depression Binge eating disorder Depo-Provera contraceptive status Severe episode of recurrent major depressive disorder, 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 Patient denies personal or family history of multiple endocrine neoplasia syndrome type II Patient denies personal history of pancreatitis Diabetes: No GERD: Yes: Requiring medications: No History of nephrolithiasis: No. Anxiety/Depression: Yes Past Surgical History: Procedure Laterality Date NONE Review of patient's allergies indicates: Allergen Reactions Pollen Rhinitis Current Outpatient Medications Medication Sig Dispense Refill Levothyroxine Sodium 100 MCG Oral Tablet (Levoxyl) Take 1 Tablet by mouth daily first thing in the morning. 90 Tablet 3 Amphetamine-Dextroamphet ER 15 MG Oral Capsule Extended Release 24 Hour cloNIDine HCl 0.1 MG Oral Tablet (Catapres) Wegovy 0.25 MG/0.5ML Subcutaneous Solution Auto-injector (Semaglutide-Weight Management) Inject 0.25 mg under the skin once a week. 2 mL 5 No current facility-administered medications for this visit. 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 Musculoskeletal: Positive for arthralgias. Sleep Apnea STOP-BANG: Does patient snore loudly (louder than talking or loud enough to be heard)?Yes, greater than or equal to 3 times per week Does patient feel tired, fatigued or sleepy during daytime? yes Have others observed patient stopping breathing during sleep? No Does patient have/is being treated for high blood pressure? no BMI greater than 35 kg/m2? yes; Body mass index is 65.93 kg/m. Patient 50 years or older? no; 18 year old Neck circumference greater than 16 inches? Yes Gender: female Score: greater than or equal to 3 refer to sleep medicine Menstrual Cycle: Yes, irregular Control: No Physical Examination: BP 146/82 | Pulse 106 | Temp 36.5 C (97.7 F) | Ht 1.71 m (5' 7.32") | Wt (!) 192.8 kg (425 lb) | SpO2 97% | BMI 65.93 kg/m | BSA 3.03 m General: Patient awake alert and oriented. Patient is well appearing and in no acute distress. Skin: No rashes. HEENT: Head is atraumatic, normocephalic. EOMs intact Abdomen: Obese Neuro: No focal deficits Psych: Appropriate mood and affect. Assessment and Recommendation: Abnormal weight gain Body mass index is 65.93 kg/m. Morbid obesity . Discussed weight management options and would like to proceed with medication and surgical weight management. Barriers are consistency. Motivators are feeling better, avoiding/reducing comorbid conditions. Patient goals were discussed in detail at visit. Explained to the patient that they can lose on average ~5-10% of current weight with medical management, ~10-15% with medication use, and ~40-60% with bariatric surgery. Interest in surgery 100% Motivation to make behavioral and dietary changes 90% 1. Keep a food log. If you bite it, write it! Apps like olook or Voucheres Calorie goal: 2000 Macronutrients: Protein 10%-35%, Carbohydrates 45%-65%, fat 20%-35% Lower carb: protein 35%, Carbohydrates 40%, fat 25% 2. Drink 48-64 ounces of non-caloric beverages per day. No fruit juices or regular soda Try crystal light, propel, zero calorie flavored water, plain water 3. Goal of 30 minutes of exercise 5 days per week (150 minutes per week--can be divided up however you would like) Aim for aerobic activity and muscle strengthening activities 4. Increase fruit and vegetable servings to 5-6 per day. 1/2 of your plate should be fruits and vegetables 5. Eat 100-200 calories within 1-2 hours of awakening, and every 4 - 6 hours while awake. Do not skip meals!! Eat 3 meals with snacks in between. Choose 100 calorie or less snacks, protein snacks (see handout) 7. Weight yourself weekly and follow trend over time (day to day weight fluctuations can be discouraging) 8. Decrease starches like bread, pasta, cereal, potatoes and corn. Aim for of your plate Try substitutions like zoodles, lentil pasta, cauliflower mashed potatoes, whole grain foods, quinoa Limit junk/processed foods Chips, pretzels, cookies, cakes, sweets White bread/rolls/wraps/bagels, white rice 9. Increase protein to feel full longer (1/4 of your plate; see myplate handout) Sarah was seen today for weight management. Diagnoses and all orders for this visit: Morbid obesity due to excess calories (HCC) - Wegovy 0.25 MG/0.5ML Subcutaneous Solution Auto-injector (Semaglutide-Weight Management); Inject 0.25 mg under the skin once a week. 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 -Discussed details of program with patient in clinic today, including (but not limited to) program fee; attending 2 support groups and 3 educational classes; Behavioral Medicine evaluation; Nurse Quality evaluation; medical evaluation; monthly visits; and 10% weight loss goal. - Discussed importance of eating 3 regular meals/day with a focus on protein. Reviewed healthy snacks and provided list. Educated about MyPlate and portion sizes. Pt is to work on these items betweennow and next visit. Given the patient's age, degree of obesity and multiple medical problems outlined above, I do believe that bariatric surgery may prove beneficial. Discussed with patient the risks and benefits of rygb,vsg. The patient is interested in bariatric surgery and will begin our presurgical process. I spent a total of 50 minutes on the date of service in preparation, delivery, and documentation ofthe care provided to Sarah Sosa excluding any time spent in the performance of separately billedservices. Time spent with patient 45 minutes. More than 50% of my time spent with patient providing counseling about the benefits of weight loss, about the patient's nutritional status, detailed explanations about calorie count, types of nutrients to choose, and composition of the meals. Reviewed and discussed weight, weight trends and pertinent labs and test results. Motivational interview provided in order to prepare the patient to achieve future goals. The patient agreed to try all the plan discussed and return in one month. Patient was instructed to message or call in the meantime with any further concerns or questions. Denae Riley PAC, MPH [facility]) documented in this encounter Nursing Notes * Malcolm Hills LPN - 11/02/2023 12:57 PM EDT Chief Complaint Patient presents with Weight Management The pt stated she would like to discuss weight loss options and bariatric surgery Waist 67in Neck 17in documented in this encounter Plan of Treatment Upcoming Encounters Date Type Department Care Team (Late st Contact Info) Description 11/21/2023 9:30 AM EDT Nurse Only Nutrition & Weight Management, [facility] [address] [place] [id number] [place], Nutrition Ed Class 1 [facility] [place] [id number] 11/21/2023 11:20 AM EDT Office Visit Nutrition & Weight Management, [facility] [address] [place] [address] Denae Riley PA-C [address] [place] [address] 12/11/2023 1:00 PM EDT [facility] [place] [address] [id number] SeptemberKhoa MD [address] [place] [address] Scheduled Referrals Name Type Priority Associated Diagnoses Orde r Schedule SLEEP MEDICINE REFERRAL OP Referral Within 10 days (routine) Morbid obesity due to excess calories (HCC) Ordered: 11/02/2023 Health Maintenance Due Date Last Done Comments [...] excess calories (HCC)- Primary Abnormal weight gain 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
--- OUTSIDE RECORDS SUMMARY | 2024-03-20 13:06 | External Medical Summary | Summary of Care ---
Author Name Unknown Organization [facility] Address [address] [place] [address] Phone [phone] Care Team Providers Care Cardiothoracic Anesthesia Technician Name Role Phone Khoa Cruz MD Primary Care Provider [phone] Reason for Referral * Precert (Within 10 days (routine)) - Authorized Specialty Diagnoses / Procedures Referred By Dhaval t Referred To Contact Sleep Disorders Diagnoses Snoring Sleep apnea, unspecified type Morbid obesity (HCC) HTN, age 0-18 Procedures SLEEP STUDY, W/ CPAP (TREATMENT SETTINGS) Jazmin Chandler DO [address] [place] [address] Referral ID Status Reason Start Date Expiration Date V isits Requested Visits Authorized [id number] Authorized 11/13/2023 999 999 * Precert (Within 10 days (routine)) - Authorized Specialty Diagnoses / Procedures Referred By Contac t Referred To Contact Sleep Disorders Diagnoses Snoring Sleep apnea, unspecified type Morbid obesity (HCC) HTN, age 0-18 Procedures SLEEP STUDY, W/O CPAP Jazmin Chandler DO [address] [place] [address] Referral ID Status Reason Start Date Expiration Date V isits Requested Visits Authorized [id number] Authorized 11/13/2023 999 999 Reason for Visit * Reason Comments NEW PATIENT Snoring * Evaluate & Treat - Unlimited Visits (Within 10 days (routine)) - Authorized Specialty Diagnoses / Procedures Referred By Contac t Referred To Contact Sleep Medicine / Sleep Disorders Diagnoses Morbid obesity due to excess calories (HCC) Denae Riley PA-C [address] [place] [address] Referral ID Status Reason Start Date Expiration Date Visits Requested Visits Authorized [id number] Authorized Specialty Services Required 11/02/2023 2 2 Encounter Details Date Type Department Care Team (Late st Contact Info) Description 11/13/2023 1:40 PM EDT Office Visit Sleep Disorders Ctr [facility] [address] [place] [phone] Jazmin Chandler DO [address] [place] [address] Snoring*; Sleep apnea, unspecified type; Morbid obesity (HCC); HTN, age 0-18 Allergies Active Allergy Reactions Criticality Noted Date Comments Pollen 11/02/2023 Rhinitis documented as of this encounter (statuses as of 11/13/2023) Medications Medication Sig Dispensed Refills Start Date End Date Status Levothyroxine Sodium 100 MCG Oral Tablet (Levoxyl)Indication [...] a week. 2 mL 5 11/02/2023 Active Amphetamine-Dextroa mphet ER 15 MG Oral Capsule Extended Release 24 Hour 08/10/2023 11/13/2023 Discontin ued documented as of this encounter (statuses as of 11/13/2023) Active Problems Problem Noted Date Diagnosed Date [...] as of this encounter (statuses as of 11/13/2023) Resolved Problems Problem Noted Date Diagnosed Date Resolved Date BMI 50.0-59.9, adult 08/18/2021 023 Overview: Per Obesity protocol Elevated BP 08/31/2015 08/31/2015 documented as of this encounter (statuses as of 11/13/2023) Immunizations Name Administration Dates Next Due DTaP [...] Date Smoking Tobacco: Never Smokeless Tobacco: Never Tobacco Cessation:Counseling Given: Not Answered Alcohol Use Standard Drinks/Week Comments Never 0 [...] Sign Reading Time Taken Comments Blood Pressure 124/78 11/13/2023 1:42 PM EDT Pulse 96 11/13/2023 1:42 PM EDT Temperature 36 C (96.8 F) 11/13/2023 1:42 PM EDT Respiratory Rate 16 11/13/2023 1:42 PM EDT Oxygen Saturation 99% 11/13/2023 1:42 PM EDT Inhaled Oxygen Concentration - - Weight 192.3 kg (424 lb) 11/13/2023 1:42 PM EDT Height 170.2 cm (5' 7") 11/13/2023 1:42 PM EDT Body Mass Index 66.41 11/13/2023 1:42 PM EDT documented in this encounter Functional [...] as of this encounter Progress Notes * Jazmin Chandler, DO - 11/13/2023 1:57 PM EDT Sleep Medicine Evaluation [address] [place] [address] Consultation was requested by: Denae Riley PA-C for: morbid obesity, at risk for CARLOS and a copy of this report is being sent to the provider electronically. Relevant available records reviewed. HPI: Sarah Sosa is a(n) 18 year old female presenting for evaluation of possible sleep apnea. She is in the bariatric surgery program. 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 Has trouble sleeping at night. 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 When laying down, she feels like she needs to pull her cheeks to the side to relieve nasal obstruction. Patient reports a typical bedtime of 5-6 AM. It takes maybe 20 minutes to fall asleep. Patient awakens usually 0 times overnight. Patient awakens for the day at 3 pm, feeling usually pretty well rested. Patient does sometimes feel sleepy or tired during the day. Not regularly. Patient does occasionally take naps. Patient does use caffeine, soda and tea (changed to diet). The patient reports having ("+" indicates reports, "-" indicates denies): + Snoring, not terribly loudly per her mother. - Observed apneas - Choking/gasping awakenings + Mouth breathing - Acid reflux at night - Nocturia - Morning headaches Restless Legs Syndrome Symptoms ("+" indicates reports, "-" indicates denies): - Pain/discomfort in legs at night - Urge to move legs at night Parasomnias Symptoms ("+" indicates reports, "-" indicates denies): - Sleepwalking - Dream-enactment Does not recall dreams. Excessive Daytime Sleepiness: [place] Sleepiness Scale 4 Modified F.O.S.Q. 38 - Drowsy driving - Sleepy with sedentary activity Travel Screening Question 11/13/2023 1:39 PM EDT - Filed by Patient Do you have any of the following new or worsening symptoms? None of these Have you recently been in contact with someone who was sick? No / Unsure [place] Sleepiness Scale Question 11/13/2023 1:44 PM EDT - Filed by Teresa Han LPN What is the chance you will doze off in the following situation? Sitting and reading No chance of dozing Watching TV Slight chance of dozing Sitting inactive in a public place, such as a theater or meeting No chance of dozing As a passenger in a car for an hour without a break No chance of dozing Lying down to rest in the afternoon when circumstances permit High chance of dozing When sitting and talking to someone No chance of dozing When sitting quietly after lunch without alcohol No chance of dozing In a car, while stopped for a few minutes in traffic No chance of dozing Score (range: 0 - 24) 4 Functional Outcomes Of Sleep Question 11/13/2023 1:45 PM EDT - Filed by Teresa Han LPN Please complete the following questions. Do you have difficulty concentrating because you are sleepy or tired? No Do you have difficulty remembering things because you are sleepy or tired? No Do you have difficulty operating a motor vehicle for short distances (less than 100 miles) because you become sleepy? No Do you have difficulty operating a motor vehicle for long distances (more than 100 miles) because you become sleepy? No Do you have difficulty visiting family or friends in their home because you become sleepy or tired?No Has your relationship with family, friends, or work colleagues been affected because you are sleepyor tired? No Do you have difficulty watching a movie or video because you become sleepy or tired? Yes, moderate Do you have difficulty being as active as you want to be in the evening because you are tired or sleepy? No Do you have difficulty being as active as you want to be in the morning because you are tired or sleepy? No Has your mood been affected because you are sleepy or tired? No Score (range: 10 - 40) 38 Prior sleep study: none PMH: anxiety, HTN, ADHD (no longer on Adderall) Past Medical History: Diagnosis Date ADHD (attention deficit hyperactivity disorder) Anxiety Childhood obesity Depression Hypertension Walking pneumonia At age 7 years Past Surgical History: Procedure Laterality Date NONE ALLERGIES: Review of patient's allergies indicates: Allergen Reactions Pollen Rhinitis MEDS: Current Outpatient Medications Medication Sig Dispense Refill cloNIDine HCl 0.2 MG Oral Tablet (Catapres) Take 1 Tablet by mouth at bedtime. Levothyroxine Sodium 100 MCG Oral Tablet (Levoxyl) Take 1 Tablet by mouth daily first thing in the morning. 90 Tablet 3 Wegovy 0.25 MG/0.5ML Subcutaneous Solution Auto-injector (Semaglutide-Weight Management) Inject 0.25 mg under the skin once a week. 2 mL 5 No current facility-administered medications for this visit. Planning to start Wegovy; does not have it yet. 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 GEN: Ambulatory, obese, NAD ORAL: Normal dentition Tongue enlarged Hard palate normal Oral mucous membranes moist OP: Soft palate normal Mallampati IV NECK: Circumference enlarged RESP: Unlabored respirations Breath sounds clear, no wheezes or rales CVS: Regular rate and rhythm NEURO: Speech clear and appropriate IMPRESSION/RECOMMENDATIONS: Snoring, morbid obesity - at risk for CARLOS - STOP-BANG 4 (snoring, HTN, BMI > 35, and large neck circumference) - Discussed the pathophysiology, implications on short- and long-term health, diagnostic evaluation, and likely treatment of CARLOS with CPAP. - Schedule an overnight PSG - split night protocol if meets criteria. - If PSG confirms CARLOS, plan to use CPAP through surgery and weight loss. - Discussed the relationship between weight and sleep apnea. Sleep apnea may improve with weight loss, so if significant sleep apnea is seen now, we may plan to reassess for resolution following weight loss. - Avoid driving when sleepy/drowsy. Check-out note: PSG [place] (daytime PSG please, due to her sleep schedule) Jazmin Chandler DO documented in this encounter Nursing Notes * Teresa Han LPN - 11/13/2023 1:45 PM EDT Chief Complaint Patient presents with NEW PATIENT Snoring No PSG HX Neck: 18.5" Travel Screening Question 11/13/2023 1:39 PM EDT - Filed by Patient Do you have any of the following new or worsening symptoms? None of these Have you recently been in contact with someone who was sick? No / Unsure [place] Sleepiness Scale Question 11/13/2023 1:44 PM EDT - Filed by Teresa Han LPN What is the chance you will doze off in the following situation? Sitting and reading No chance of dozing Watching TV Slight chance of dozing Sitting inactive in a public place, such as a theater or meeting No chance of dozing As a passenger in a car for an hour without a break No chance of dozing Lying down to rest in the afternoon when circumstances permit High chance of dozing When sitting and talking to someone No chance of dozing When sitting quietly after lunch without alcohol No chance of dozing In a car, while stopped for a few minutes in traffic No chance of dozing Score (range: 0 - 24) 4 Functional Outcomes Of Sleep Question 11/13/2023 1:45 PM EDT - Filed by Teresa Han LPN Please complete the following questions. Do you have difficulty concentrating because you are sleepy or tired? No Do you have difficulty remembering things because you are sleepy or tired? No Do you have difficulty operating a motor vehicle for short distances (less than 100 miles) because you become sleepy? No Do you have difficulty operating a motor vehicle for long distances (more than 100 miles) because you become sleepy? No Do you have difficulty visiting family or friends in their home because you become sleepy or tired?No Has your relationship with family, friends, or work colleagues been affected because you are sleepyor tired? No Do you have difficulty watching a movie or video because you become sleepy or tired? Yes, moderate Do you have difficulty being as active as you want to be in the evening because you are tired or sleepy? No Do you have difficulty being as active as you want to be in the morning because you are tired or sleepy? No Has your mood been affected because you are sleepy or tired? No Score (range: 10 - 40) 38 documented in this encounter Plan of Treatment Upcoming Encounters Date Type Department Care Team (Late st Contact Info) Description 11/19/2023 7:00 AM EDT PulmDiagnostic Sleep Lab, [facility] [address] [place] [address] [facility], Sleep Med Day Study [address] [place] [address] 11/21/2023 9:30 AM EDT Nurse Only Nutrition & Weight Management, [facility] [address] [place] [address] [place], Nutrition Ed Class 1 [facility] [address] [place] [address] 11/21/2023 11:20 AM EDT Office Visit Nutrition & Weight Management, [facility] [address] [place] [address] Denae Riley PA-C [address] [place] [address] 12/11/2023 1:00 PM EDT [facility] [address] [facility] [phone] Khoa Cruz [facility] [address] [facility] [address] Scheduled Orders Name Type Priority Associated Diagnoses Orde r Schedule SLEEP STUDY, W/O CPAP Procedures Routine Snoring Sleep apnea, unspecified type Morbid obesity (HCC) HTN, age 0-18 Ordered: 11/13/2023 SLEEP STUDY, W/ CPAP (TREATMENT SETTINGS) Procedures Routine Snoring Sleep apnea, unspecified type [...] as of this encounter Visit Diagnoses Diagnosis Snoring- Primary Other dyspnea and respiratory abnormality Sleep apnea, unspecified type Morbid obesity (HCC) Morbid obesity HTN, age 0-18 Unspecified essential hypertension documented in this encounter Care Teams Cardiothoracic Anesthesia Technician Relationship Specialty Start Date End Date September, Khoa Harrington MD [address] [place] [address] PCP - General Family Medicine 08/30/22 documented as of this encounter
--- OUTSIDE RECORDS SUMMARY | 2024-03-20 13:06 | External Medical Summary | Summary of Care ---
Author Name Unknown Organization [facility] Address [address] [place] [address] Phone [phone] Care Team Providers Care Circular Tank Cooper Name Role Phone Khoa Cruz MD Primary Care Provider [phone] Reason for Visit * Reason Onset Date Comments Precert Approved 11/05/2023 casey Encounter Details Date Type Department Care Team (Late st Contact Info) Description 11/05/2023 Telephone Nutrition & Weight Management, [facility] [address] [place] [address] Denae Riley PA-C [address] [place] [address] Precert Approved (casey) Allergies Active Allergy Reactions [...] PM EDT Office Visit Sleep Disorders Ctr [facility] [address] [place] [phone] Jazmin Chandler DO [address] [place] [address] 11/21/2023 9:30 AM EDT Nurse Only Nutrition [facility], [facility] [address] [place] [address] [place], Nutrition Ed Class 1 [place] [address] 11/21/2023 11:20 AM EDT [facility] [address] [place] [address] Denae Riley PA-C [address] [place] [address] 12/11/2023 1:00 PM EDT Office Visit [facility] [address] [facility] [phone] SeptemberKhoa MD [address] [place] [address] Health Maintenance Due Date Last Done Comments [...] filedocumented as of this encounter Care Teams Circular Tank Cooper Relationship Specialty Start Date End Date September, Khoa Har[place] MD [address] [place] [address] PCP - General Family Medicine 08/30/22 documented as of this encounter
--- OUTSIDE RECORDS SUMMARY | 2024-03-20 13:06 | External Medical Summary | Summary of Care ---
Author Name Unknown Organization [facility] Address [address] [place] [address] Phone [phone] Care Team Providers Care Chief Deputy Sheriff Name Role Phone Khoa Cruz MD Primary Care Provider [phone] Reason for Visit * Reason Onset Date Comments Precert In Process 11/05/2023 19 Karon peña Encounter Details Date Type Department Care Team (Late st Contact Info) Description 11/05/2023 Telephone Nutrition & Weight Management, [facility] [address] [place] [address] Denae Riley PA-C [address] [place] [address] Precert In Process (19 Karon peña) Allergies Active Allergy Reactions Criticality Noted Date Comments Pollen 11/02/2023 Rhinitis documented as of this encounter (statuses as of 11/07/2023) Medications Medication Sig Dispensed Refills Start Date [...] as of this encounter (statuses as of 11/07/2023) Active Problems Problem Noted Date Diagnosed Date [...] as of this encounter (statuses as of 11/07/2023) Resolved Problems Problem Noted Date Diagnosed Date Resolved Date BMI 50.0-59.9, adult 08/18/2021 023 Overview: Per Obesity protocol Elevated BP 08/31/2015 08/31/2015 documented as of this encounter (statuses as of 11/07/2023) Immunizations Name Administration Dates Next Due DTaP [...] PM EDT Office Visit Sleep Disorders Ctr [facility] [address] [place] [phone] Jazmin Chandler DO [address] [place] [address] 11/21/2023 9:30 AM EDT Nurse Only Nutrition & Weight Management, [facility] [address] [place] [address] [place], Nutrition Ed Class 1 [facility] [place] [address] 11/21/2023 11:20 AM EDT Office Visit Nutrition & Weight Management, [facility] [address] [place] [address] Denae Riley PA-C [address] [place] [address] 12/11/2023 1:00 PM EDT Office Visit [facility] [address] [place] [phone] SeptemberKhoa MD [address] [place] [address] Health Maintenance Due Date Last Done Comments [...] filedocumented as of this encounter Care Teams Chief Deputy Sheriff Relationship Specialty Start Date End Date September, Khoa Harrington MD [address] [place] [address] PCP - General Family Medicine 08/30/22 documented as of this encounter
--- NOTE | 2024-03-20 13:48 | History & Physical Report ---
Date of Service March 20, 2024 Assessment & Plan (1) Epigastric pain: Plan: Acute onset after eating mozzarella sticks, pt reports outpatient US showing gallstones (no records to review). Plan for weight loss surgery in the next 2-3 months, with possible GB removal. CTAP: mild gallbladder distention and mild pericholecystic stranding. RUQ US: cholelithiasis and mild gallbladder distention. Mild dilatation of CBD. no CBD stones. Hepatic steatosis. MRCP ordered - however, currently the MRI machine is down, replacement part to arrive AM 03/21 with hopeful capabilities to scan in the afternoon - NPO at midnight LFTs elevated - AST 218, ALT 157 Received Zosyn in ED, will transition to Ceftriaxone and Flagyl - flagyl ordered IV while NPO Blood cultures: pending General surgery consulted - trend LFTs - recommend MRCP, if positive for CBD stones will need transfer for ERCP AM CBC and CMP (2) Obesity hypoventilation syndrome: Plan: continue CPAP - pt does not know her settings (3) Asymptomatic bacteriuria: Plan: UA with 2+ bacteria, and 1+ leuks Clinically asymptomatic, but being covered by above antibiotics UC pending (4) BMI (body mass index), pediatric, greater than 99% for age: Plan: BMI 62.4 Weight loss surgery planned in the upcoming future [facility] (5) Acute cholecystitis: (6) Choledocholithiasis: (7) Biliary colic: Plan Chronic stable medical conditions: * Mental health - continue clonidine * contraception - continue norethindrone * Hypothyroid - continue Synthroid Dispo: med/surg Code status: FULL DVT proh: encourage ambulation/scds History of Present Illness Chief Complaint: abdominal pain Primary Care Provider: Khoa Cruz MD Sarah is a 18F with a PMH of metabolic syndrome, HTN, ADHD who presents to the ED with epigastric pain. Pain started this morning after eating mozzarella sticks, presented to the ER after the pain would not subside and also knowing that she had a recent ultrasound that showed gallstones, and she was concerned about her gallbladder. At time of my exam, her pain is well controlled with morphine and she feels like she is signifcantly less distended - states she had been burping frequently. Last BM was two days ago, does not normally have a BM everyday. She is on wegovy, due for a dose today but did not take. no recently changes in dosing. Was on lisinopril but was discontinued this summer. She is supposed to have weight loss surgery in 2-3 months and there was talk of possibly taking her GB out at this time. Take medications today: no, did take medications last night Alcohol: no Smoking: no CPAP: yes, unsure of settings Code Status: Full code ER course: IV morphine 4mg zofran 4mg NSS 1L Zosyn Allergies Allergy/AdvReac Type Severity Reaction Status Date / Time No Known Allergies Allergy Verified 03/20/24 12:16 Home Medications Medication Instructions Recorded Confirmed Type apple cider vinegar 500 mg tablet 500 mg PO DAILY 07/23/20 03/20/24 History clonidine HCl 0.2 mg tablet 0.2 mg PO DAILY 03/20/24 03/20/24 History ergocalciferol (vitamin D2) 1,250 50,000 unit PO WK 03/20/24 03/20/24 History mcg (50,000 unit) capsule ibuprofen 200 mg tablet 200 mg PO Q6H PRN Pain 03/20/24 03/20/24 History levothyroxine 100 mcg tablet 100 mcg PO DAILY 03/20/24 03/20/24 History multivitamin 1 tab PO DAILY 03/20/24 03/20/24 History norethindrone (contraceptive) 0.35 0.35 mg PO DAILY 03/20/24 03/20/24 History mg tablet semaglutide (weight loss) 0.5 0.5 mg subcut WK 03/20/24 03/20/24 History mg/0.5 mL subcutaneous pen injector (Wegovy) Past Med/Surg History Problem List (Updated 03/21/24 @ 07:06 by Salomon Johnson MD) Biliary colic Choledocholithiasis Acute cholecystitis Asymptomatic bacteriuria Obesity hypoventilation syndrome Transaminitis (Acute) Epigastric pain Sleep apnea Hematuria Strain of mid-back Carpal tunnel syndrome Metabolic syndrome BMI (body mass index), pediatric, 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 Social History Smoking Status: Never smoker Second Hand Exposure: Yes (mom smokes); Do You Dip or Chew Tobacco: No; Hx Alcohol Use: No Hx Substance Use: No Preferred Language: Azerbaijani Communication Ability: Effective Visual Impairment: No Limitations Hearing Ability: Normal Oil Burner Technician Required: No Beliefs That Will Affect Care: None marital status: Single Current Living Situation: Parent and Family Current Living Situation Comment: mom/dad/ older brother Other Information That Helps Us Care for You: No Feels Safe at Home: Yes Safety Concerns: Feels Safe At This Time Childhood Exposure to Second-Hand Smoke: No Dental Care, Regularly: Yes Seatbelt Use: always Sunscreen Use: Yes Assistive Devices: CPAP Review of Systems Review of Systems: All systems reviewed & are unremarkable except as noted in Subjective Physical Exam Physical Exam: General: NAD, VS as above, sitting up in bed, obese Resp: normal respiratory effort, lungs clear to auscultation CV: RRR, no murmur, Abd: normal bowel sounds, mild epigastric tenderness, soft, non distended Extremities: Moves all extremities, no edema Neuro: A&O x3, Skin: intact, no lesions noted Results & Data Results & Data Vital Signs (Past 12 Hours) Vital Signs Temp Pulse Pulse Resp BP BP Pulse Ox 03/20/24 13:06 88 03/20/24 11:45 90 18 180/93 H 98 03/20/24 10:39 86 17 99 03/20/24 09:51 97.9 F 87 18 185/97 H 99 O2 Del Method 03/20/24 13:06 03/20/24 11:45 Room Air 03/20/24 10:39 Room Air 03/20/24 09:51 Laboratory Results cbc, chemistry and UA reviewed Diagnostic Findings CTAP and RUQ US reviewed Supervising Physician Co-Signing Physician Notes I personally saw and examined the patient. I independently reviewed the labs, EKG, imaging, problem list, medication list, past medical history and family history. I verified all harmon points and agree with Rajwinder Cui PA-C with the following exceptions and/or additions: 18 year old female presents to the ER with epigastric, RUQ abdominal pain started at 6am today. History of gallstones. Feels much improved following morphine given in the ER. O/E HS RRR, no murmurs, Chest CTAB, Abdo SNT A/P Biliary colic +/- acute sherry +/- choledocholithiasis - CBD 8mm therefore warrants MRCP, unfortunately this can only be done tomorrow afternoon, in the mean time we will see if LFTs increase and if so may need transfer just for this reason. Start empiric antibiotics with presumed acute sherry, will defer whether HIDA scan necessary to surgery but even if acute sherry present plan may be just to treat with antibiotics and follow up with her outpatient surgeon. 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
[2024-03-20] MEDS: PIPERACILLIN/TAZOBACTAM 4.5 GM/100 ML BAG IV SCH (14:18)
[2024-03-20] MEDS ORDERED: MoRPHine SULFATE 2 MG/ML CARP IV PRN (16:50)
[2024-03-20] MEDS ORDERED: ONDANSETRON INJ 2 MG/ML 2 ML VIAL IV PRN (16:50)
[2024-03-20 19:41] VITALS: RESP 18
[2024-03-20] MEDS: cloNIDine HCL 0.1 MG TAB PO SCH (20:51)
[2024-03-20] MEDS: cefTRIAXone SODIUM 2,000 MG/50 ML BAG IV SCH (20:54)
[2024-03-20] MEDS: metroNIDAZOLE 500 MG/100 ML BAG IV SCH (20:54)
[2024-03-21] MEDS: LEVOTHYROXINE SODIUM 100 MCG TABLET PO SCH (05:51)
[2024-03-21] MEDS: SODIUM CHLORIDE 0.9% 1,000 ML IV SCH (07:54)
[2024-03-21 08:05] LABS: Basophils # (auto) 0.02 K/uL (0.00-0.20); Basophils % (auto) 0.3 %; Eosinophils # (auto) 0.11 K/uL (0.00-0.50); Eosinophils % (auto) 1.4 %; Hematocrit (blood only) 39.2 % (37.0-47.0); Hemoglobin 13.1 g/dl (12.0-16.0); Immature Granulocytes # (auto) 0.02 K/uL (0.01-0.20); Immature Granulocytes % (auto) 0.3 %; Lymphocytes % (auto) 28.5 %; Mean Corpuscular Hemoglobin 30.8 pg (25.0-34.0); Mean Corpuscular Hgb Conc 33.4 g/dL (32.0-36.0); Mean Platelet Volume 10.7 fL (9.4-12.4); Monocytes # (auto) 0.67 K/uL (0.11-0.59); Monocytes % (auto) 8.7 %; Neutrophils # (auto) 4.71 K/uL (1.40-6.50); Neutrophils % (auto) 60.8 %; Platelet Count 238 K/uL (130-400); RDW Coefficient of Variation 12.7 % (11.5-14.5); RDW Standard Deviation 42.8 fL (36.4-46.3); Red Blood Count 4.26 M/uL (4.20-5.40); White Blood Count 7.73 K/ul (4.8-10.8)
[2024-03-21 08:22] LABS: Albumin Globulin Ratio 1.2 (0.9-2); Albumin Level 3.8 gm/dl (3.4-5.0); Creatinine Clr Calc Pharmacy 202.6 ml/min; Globulin 3.1 gm/dl (2.5-4.0); Potassium 3.9 mmol/L (3.5-5.1); Total Protein 6.9 gm/dl (6.0-8.3)
[2024-03-21 08:36] LABS: Thyroid Stimulating Hormone 2.54 uIu/ml (0.300-4.500)
--- NOTE | 2024-03-21 08:45 | Surgery Progress Note ---
<Statement entered by Kasey Castillo DO - 03/21/24 08:55> I have seen and examined this patient this am with the surgical PA. I agree with this plan. The patient is planning a weight loss procedure with her bariatric surgeon where they have discussed removal of the GB at that time. Due to this recent incident, the patient is aware that she should make her bariatric surgeon aware and GB removal is recommended. Date of Service March 21, 2024 Assessment & Plan (1) Epigastric pain: Plan: Pt here w/ epigastric pain workup shows cholelithiasis and cannot rule out acute sherry. RUQ US showed + stones with dilation of CBD to 8mm Labs show WBC 7, Hbg 13, LFTs improving Tb 1, AST 156, ALT 214 MRCP was down last night , will obtain today.....but with improving LFTs and pain it's likely she passed a stone Pending MRCP results if CBD stone + will need transferred for ERCP....if negative we are okay with advancing to a low fat diet with f/u with her bariatric surgeons to discuss cholecystectomy at the time of her weight loss procedure...pt agreeable with plan of care No plans for surgical intervention from our stand point this admission Please re-call if needed and [facility] covering wknd if questions/concerns (2) Transaminitis: Admission and Anticipated Discharge Date Admission Date: March 20, 2024 Subjective Patient feeling much better. Tolerating low fat diet yesterday. Now NPO for MRCP. Denies abdominal complaints Physical Exam Physical Exam: awake/alert, no distress Gastrointestinal (Abdomen): Percussion/Palpation: abdomen soft; abdomen nontender Results & Data Vital Signs (Past 12 Hours) Vital Signs Temp Pulse Resp BP Pulse Ox O2 Del Method 03/21/24 07:13 98.2 F 77 18 126/79 97 Room Air PG Care Time/CCT Total # of Minutes Spent Total Time Spent with Patient: Total time spent is greater than 50% in coordination of care (as documented) at patient's floor/unit and/or counseling patient: Coding Level of Care Code 55919 SUB INP/OBS CARE 1/25MIN Diagnoses Epigastric pain R10.13 Transaminitis R74.01
--- NOTE | 2024-03-21 12:23 | Hospitalist Progress Note ---
Date of Service March 21, 2024 Assessment & Plan (1) Epigastric pain: Plan: Now resolved. Appreciate general surgery consultation and recommendations. She may have passed a gallstone. MRCP is pending. (2) Obesity hypoventilation syndrome: Plan: Stable. Continue CPAP. (3) Asymptomatic bacteriuria: Plan: UA with 2+ bacteria, and 1+ leuks. Clinically asymptomatic, but being covered by above antibiotics . UCx pending (4) BMI (body mass index), pediatric, greater than 99% for age: Plan: BMI 62.4 . Weight loss surgery planned in the upcoming future (5) Acute cholecystitis: Plan: Suspected on admission. Clinically, she does not have acute cholecystitis. (6) Choledocholithiasis: Plan: She may have passed a gallstone causing her current symptoms which have now resolved Plan Home today, March 21, if MRCP is unremarkable Admission and Anticipated Discharge Date Admission Date: March 20, 2024 Subjective Alert and oriented. She states she feels much better today. She may have passed a gallstone. MRCP is pending. Appreciate surgical consultation recommendations. If MRCP is unremarkable, will probably discharge her home today, March 21 Review of Systems 2 Review of Systems: Constitutionalno fever or chills ENTno blurred vision, no double vision, no epistaxis, no sore throat Respiratoryno cough, no wheezing, no shortness of breath Cardiacno palpitations, no chest pain, no syncope Pretty nausea, vomiting, diarrhea, melena, hematochezia. Abdominal discomfort has resolved GUno urinary retention, no urinary incontinence, no dysuria, no hematuria Musculoskeletalno joint pain, no muscle tenderness Skinno bruising, no rashes, no pruritus Neurono isolated weakness, no paresthesia, no weakness Psychno depression, no anxiety Physical Exam 2 Physical Exam: General-alert and oriented x3, no fever, no chills. Morbidly obese HEENT-head atraumatic and normocephalic, pupils equal and reactive to light, extraocular muscles intact Neck-no lymphadenopathy or thyromegaly, trachea midline Chest-clear to auscultation. No rales, wheezing or rhonchi Cardiac-regular rate and rhythm, normal S1 and S2 Abdomen-normal bowel sounds, no hepatosplenomegaly. No tenderness Extremities-no cyanosis, clubbing, or edema Neuro-cranial nerves II through XII intact, motor and sensory function within normal limits, strength symmetrical, no focal deficits Psych-normal affect, normal mood Results & Data Results & Data Vital Signs (Past 12 Hours) Vital Signs Temp Pulse Resp BP Pulse Ox O2 Del Method 03/21/24 07:13 36.8 C 77 18 126/79 97 Room Air Laboratory Results 03/21/24 07:47 03/21/24 07:47 PG Care Time/CCT Total # of Minutes Spent Total Time Spent with Patient: Total time spent is greater than 50% in coordination of care (as documented) at patient's floor/unit and/or counseling patient: Coding Level of Care Code 22190 SUB INP/OBS CARE 3/50MIN Diagnoses Epigastric pain R10.13 Obesity hypoventilation syndrome E66.2 Asymptomatic bacteriuria R82.71 BMI (body mass index), pediatric, greater than 99% for age Z68.54 Acute cholecystitis K81.0 Choledocholithiasis K80.50
--- NOTE | 2024-03-21 13:46 | Magnetic Resonance Report ---
MRCP CLINICAL HISTORY: ?choledocholithiasis TECHNIQUE: Utilizing a 1.5 Winter magnet and dedicated coil, multiplanar, multiecho imaging of the [facility] abdomen was performed utilizing heavily T2 weighted pulsing sequences without IV contrast. COMPARISON STUDY: CT of the abdomen and pelvis and right upper quadrant ultrasound March 20, 2024. FINDINGS: No intra or extra hepatic biliary ductal dilatation is present. No common bile duct calculi are identified although this exam is mildly compromised by motion artifact. Common bile duct measure s 5 mm in caliber. No hepatic lesions are identified on this unenhanced exam. Gallstones within the g allbladder present. The gallbladder is mildly distended. No pericholecystic fluid is noted. No gallbl adder wall thickening is noted by MRI. There is mild hepatosplenomegaly. The adrenal glands, kidneys and pancreas are normal. There is no pancreatic ductal dilatation. No peripancreatic fluid is present . There is no hydronephrosis. There is no abdominal lymphadenopathy. The caliber and wall thickness o f visualized small and large bowel are normal. IMPRESSION: 1. No biliary ductal dilatation. No common bile duct calculi identified although exam mildly compromi sed by motion artifact. 2. Cholelithiasis and mild gallbladder distention. No pericholecystic fluid or definite gallbladder w all thickening. These findings are not highly suggestive of acute cholecystitis however a hepatobilia ry scan could be obtained if indicated. ACT 112: Negative or not required by law. Electronically signed by: Renny Nuñez M.D. 03/21/2024 1:44 PM
[2024-03-21] MEDS: POLYETHYLENE (MIRALAX) 17 GM PACK PO ONE (15:12)
--- NOTE | 2024-03-21 15:15 | Discharge Summary ---
Discharge Summary Date of Service March 21, 2024 Principal Dx & Hospital Course #1 = Principal Diagnosis (1) Epigastric pain: Now resolved. Appreciate general surgery consultation and recommendations. She may have passed a gallstone. MRCP reveals no common bile duct stones but she does have cholelithiasis. No acute cholecystitis seen (2) Obesity hypoventilation syndrome: Stable. Continue CPAP. (3) Asymptomatic bacteriuria: UA with 2+ bacteria, and 1+ leuks. Clinically asymptomatic, but being covered by above antibiotics . 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 Weight loss surgery planned in the upcoming future (5) Acute cholecystitis: Ruled out (6) Choledocholithiasis: She may have passed a gallstone causing her current symptoms which have now resolved Plan Home today, March 21 Admission HPI Per Admitting Provider Sarah is a 18F with a PMH of metabolic syndrome, HTN, ADHD who presents to the ED with epigastric pain. Pain started this morning after eating mozzarella sticks, presented to the ER after the pain would not subside and also knowing that she had a recent ultrasound that showed gallstones, and she was concerned about her gallbladder. At time of my exam, her pain is well controlled with morphine and she feels like she is signifcantly less distended - states she had been burping frequently. Last BM was two days ago, does not normally have a BM everyday. She is on wegovy, due for a dose today but did not take. no recently changes in dosing. Was on lisinopril but was discontinued this summer. She is supposed to have weight loss surgery in 2-3 months and there was talk of possibly taking her GB out at this time. Take medications today: no, did take medications last night Alcohol: no Smoking: no CPAP: yes, unsure of settings Code Status: Full code ER course: IV morphine 4mg zofran 4mg NSS 1L Zosyn Discharge Exam General-alert and oriented x3, no fever, no chills. Morbidly obese HEENT-head atraumatic and normocephalic, pupils equal and reactive to light, extraocular muscles intact Neck-no lymphadenopathy or thyromegaly, trachea midline Chest-clear to auscultation. No rales, wheezing or rhonchi Cardiac-regular rate and rhythm, normal S1 and S2 Abdomen-normal bowel sounds, no hepatosplenomegaly. No tenderness Extremities-no cyanosis, clubbing, or edema Neuro-cranial nerves II through XII intact, motor and sensory function within normal limits, strength symmetrical, no focal deficits Psych-normal affect, normal mood Discharge Plan Discharge Items Patient Disposition: Home - Self-Care Reason For Visit: EPIGASTRIC PAIN Discharge Diagnosis: Suspected biliary colic, cholelithiasis Activity: Resume your previous activity Non-emergency contact: Primary Care Provider Call non-emergency contact if: your symptoms worsen Follow-up/Referrals: Khoa Cruz MD [Primary Care Provider] - Diet: Regular Addtl Attending Provider Instructions: Follow-up with primary care provider soon as possible Pending Studies at Discharge: No Stand-Alone Forms: Jin-[employer], Smoking Cessation Medications and DC Order Prescriptions: Continued apple cider vinegar 500 mg tablet 500 mg PO DAILY multivitamin Tablet 1 tab PO DAILY levothyroxine 100 mcg tablet 100 mcg PO DAILY clonidine HCl 0.2 mg tablet 0.2 mg PO DAILY ibuprofen 200 mg Tablet 200 mg PO Q6H PRN (Reason: Pain) ergocalciferol (vitamin D2) 1,250 mcg (50,000 unit) capsule 50,000 unit PO WK Rx Instructions: Mondays norethindrone (contraceptive) 0.35 mg tablet 0.35 mg PO DAILY Wegovy 0.5 mg/0.5 mL pen injector 0.5 mg SUBCUT WK Rx Instructions: Discharge Orders: Discharge Order (Routine); Ordered 03/21/24 Ordered By: Zeferino Delvalle Admission Data Admit Date/Time: 03/20/24 14:37 Attending Provider: Zeferino Delvalle Admit Provider: Salomon Johnson Primary Care Provider: Khoa Cruz Other Providers: Kasey Castillo; Salomon Johnson Hospital Stay Data Consultations 03/20/24 12:50 Consult General Surgery Stat 03/20/24 12:51 ED Decision to Admit Stat Diagnostic Imagining Performed 03/20/24 10:07 CT abd pelvis IV con only Stat 03/20/24 12:09 US RUQ [US liver] Stat 03/21/24 13:07 MR MRCP Stat Pending Results Patient Have Any Pending Studies at Discharge: No Discharge Instructions Given to Patient (Per Discharging Provider) Follow-up with primary care provider soon as possible Total Time Total Time Spent Total Time Spent (In Minutes): 45 minutes Coding Level of Care Code 91176 INP/OBS DISCH >30 MIN Diagnoses Epigastric pain R10.13 Obesity hypoventilation syndrome E66.2 Asymptomatic bacteriuria R82.71 BMI (body mass index), pediatric, greater than 99% for age Z68.54 Acute cholecystitis K81.0 Choledocholithiasis K80.50
[2024-03-21 16:12] VITALS: BP 148/75; PULSE 73; TEMP 97.5; O2SAT 98
== END 2024-03-21 17:22 | disposition home or self-care (01) ==
LOC: ED 09:50 → 3E 09:50 → SUATTDRO 14:37 → 3E 16:34

== ENCOUNTER 2024-04-03 18:18 | Inpatient (IN) ==
[2024-04-03] MEDS: ONDANSETRON INJ 2 MG/ML 2 ML VIAL IV STA (19:01)
[2024-04-03] MEDS: MoRPHine SULFATE 4 MG/ML 1 ML CARP\\VIAL IV STA (19:01)
[2024-04-03 19:24] LABS: Basophils # (auto) 0.04 K/uL (0.00-0.20); Basophils % (auto) 0.5 %; Eosinophils % (auto) 1.3 %; Hematocrit (blood only) 41.9 % (37.0-47.0); Hemoglobin 13.8 g/dl (12.0-16.0); Immature Granulocytes # (auto) 0.02 K/uL (0.01-0.20); Immature Granulocytes % (auto) 0.3 %; Lymphocytes # (auto) 1.34 K/uL (1.20-3.40); Lymphocytes % (auto) 17.6 %; Mean Corpuscular Hemoglobin 30.5 pg (25.0-34.0); Mean Corpuscular Hgb Conc 32.9 g/dL (32.0-36.0); Mean Corpuscular Volume 92.7 fL (80.0-100.0); Mean Platelet Volume 10.8 fL (9.4-12.4); Monocytes # (auto) 0.51 K/uL (0.11-0.59); Monocytes % (auto) 6.7 %; Neutrophils % (auto) 73.6 %; Platelet Count 233 K/uL (130-400); RDW Coefficient of Variation 12.8 % (11.5-14.5); RDW Standard Deviation 43.3 fL (36.4-46.3); Red Blood Count 4.52 M/uL (4.20-5.40); White Blood Count 7.61 K/ul (4.8-10.8)
[2024-04-03 19:39] LABS: Albumin Globulin Ratio 1.4 (0.9-2); Albumin Level 4.2 gm/dl (3.4-5.0); BUN Creatinine Ratio 9.3 (10-20); Bilirubin,Total 2.1 mg/dl (0.2-1.0); Calcium 9.7 mg/dl (8.6-10.3); Creatinine Clr Calc Pharmacy 206.2 ml/min; Globulin 3.1 gm/dl (2.5-4.0); Potassium 3.7 mmol/L (3.5-5.1); Total Protein 7.3 gm/dl (6.0-8.3)
[2024-04-03] MEDS: OPTIRAY 320 125ml IV ONE (19:50)
--- NOTE | 2024-04-03 19:59 | Emergency Department Note ---
ED Provider Note History of Present Illness Chief Complaint: Abdominal Pain Stated Complaint: ABD PAIN, GALLBLADDER ISSUES Time Seen by Provider: 04/03/24 18:31 Source: patient Mode of arrival: ambulatory Limitations: no limitations Patient is a 18-year-old female who presents to the emergency department with complaints of abdominal pain. Patient states that she is having midsternal chest pain that radiates around the right side of her chest and into her back. Patient has been worked up several times in the emergency department and has some gallbladder issues and is scheduled to have her gallbladder out on the of this month however the patient feels that she cannot wait that long. Patient notes that her pain has worsened and is not tolerable. Patient was seen in the emergency department last night for the same symptoms and had an ultrasound of her gallbladder which shows some gallbladder distention and a stone in the neck of her gallbladder without acute cholecystitis. Home Medications Medication Instructions Recorded Confirmed Type apple cider vinegar 500 mg tablet 500 mg PO DAILY 07/23/20 04/03/24 History clonidine HCl 0.2 mg tablet 0.2 mg PO DAILY 03/20/24 04/03/24 History ergocalciferol (vitamin D2) 1,250 50,000 unit PO WK 03/20/24 04/03/24 History mcg (50,000 unit) capsule ibuprofen 200 mg tablet 400 mg PO Q6H PRN Pain 03/20/24 04/03/24 History levothyroxine 100 mcg tablet 100 mcg PO DAILY 03/20/24 04/03/24 History multivitamin 1 tab PO DAILY 03/20/24 04/03/24 History norethindrone (contraceptive) 0.35 0.35 mg PO DAILY 03/20/24 04/03/24 History mg tablet semaglutide (weight loss) 0.5 0.5 mg subcut WK 03/20/24 04/03/24 History mg/0.5 mL subcutaneous pen injector (Wegovy) cephalexin 500 mg tablet 500 mg PO BID 4 days #8 tabs 04/02/24 04/03/24 Rx ondansetron 4 mg disintegrating 4 mg PO Q12H PRN nausea and 04/02/24 04/03/24 Rx tablet vomiting 3 days #9 tabs oxycodone 5 mg tablet 5 mg PO Q8H PRN pain #9 tabs 04/02/24 04/03/24 Rx Allergies Allergy/AdvReac Type Severity Reaction Status Date / Time No Known Allergies Allergy Verified 03/20/24 12:16 Past Med/Surg History Problem List (Updated 04/03/24 @ 22:11 by AJ Bruno) Abdominal pain (Acute) Biliary colic (Acute) Elevated LFTs (Acute) Cystitis (Acute) Biliary colic (Acute) Biliary colic Choledocholithiasis Acute cholecystitis Asymptomatic bacteriuria Obesity hypoventilation syndrome Transaminitis (Acute) Epigastric pain Sleep apnea Hematuria Strain of mid-back Carpal tunnel syndrome Metabolic syndrome BMI (body mass index), pediatric, 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 Social History Smoking Status: Never smoker Second Hand Exposure: Yes (mom smokes); Do You Dip or Chew Tobacco: No; Hx Alcohol Use: No Hx Substance Use: No Preferred Language: Gambian Communication Ability: Effective Visual Impairment: No Limitations Hearing Ability: Normal Clinical Statistics Manager Required: No Beliefs That Will Affect Care: None marital status: Single Current Living Situation: Parent and Family Current Living Situation Comment: mom/dad/ older brother Feels Safe at Home: Yes Childhood Exposure to Second-Hand Smoke: No Dental Care, Regularly: Yes Seatbelt Use: always Sunscreen Use: Yes Assistive Devices: None Physical Exam Vital Signs Vital Signs - 24 hr 04/03/24 18:25 04/03/24 19:08 04/03/24 20:19 Temperature 36.7 C Temperature Source Temporal Artery Scan Pulse Rate 86 71 Pulse Rate [Left Radial] 79 Pulse Rhythm [Left Radial] Regular Pulse Strength [Left Radial] Normal Respiratory Rate 19 20 Respiratory Effort / Characteristics Non-Labored Respiratory Depth Normal Respiratory Pattern Blood Pressure 182/90 H Blood Pressure [Left Radial Artery] 127/94 Blood Pressure Mean 120 Blood Pressure Mean [Left Radial Artery] 105 Blood Pressure Position [Left Radial Artery] Sitting Pulse Oximetry 96 98 Oxygen Delivery Method Room Air Room Air Sepsis Recent Fever Within 48 Hours No Sepsis New/Unexplained Change in Mental Status N/A Sepsis Action Taken by Nursing No Action Required 04/03/24 22:00 04/03/24 23:02 Temperature Temperature Source Pulse Rate 75 Pulse Rate [Left Radial] 68 Pulse Rhythm [Left Radial] Regular Pulse Strength [Left Radial] Normal Respiratory Rate 18 Respiratory Effort / Characteristics Non-Labored Respiratory Depth Normal Respiratory Pattern Regular Blood Pressure Blood Pressure [Left Radial Artery] 131/65 Blood Pressure Mean Blood Pressure Mean [Left Radial Artery] 87 Blood Pressure Position [Left Radial Artery] Sitting Pulse Oximetry 98 Oxygen Delivery Method Room Air Sepsis Recent Fever Within 48 Hours Sepsis New/Unexplained Change in Mental Status Sepsis Action Taken by Nursing VITAL SIGNS - Vital signs and nursing notes were reviewed. GENERAL -18-year-old female appearing her stated age who is in no acute distress. Communicates well with provider and answers questions appropriately. HEAD - NC/AT. EYES - PERRL with EOMI bilaterally. Conjunctiva pink and moist with no injection noted. LUNGS - Chest wall symmetric without accessory muscle use, intercostals retractions, or central cyanosis. Breath sounds clear throughout all giordano. No wheezes, rales, or rhonchi appreciated. CARDIAC - RRR with S1/S2. No murmur, rubs, or gallops appreciated. ABDOMEN - Abdominal contour without pulsations or visible masses. Negative Earl's or Reardon Barragan's Signs. BS normoactive all four quadrants. No guarding. No rebound Tenderness. No palpable masses, hepatosplenomegaly, or ascites noted. Patient has pain midsternal and wraps around to the right side of her chest and into her back. No noted nausea, vomiting, or diarrhea. NEUROLOGIC - Sensory intact to light touch throughout. PSYCH - A&Ox3 and cooperates fully with examiner. Pt is very pleasant and interacts well with examiner. Course Administered Medications Discontinued Medications Ioversol (Optiray 320 125ml) 118 ml IV ONCE ONE Stop: 04/03/24 19:51 Last Admin: 04/03/24 19:50 Dose: 118 ml Documented By: RENARD Morphine Sulfate (Morphine Sulfate 4 Mg/Ml 1 Ml Carp\Vial) 4 mg IV NOW STA Stop: 04/03/24 18:49 Last Admin: 04/03/24 19:01 Dose: 4 mg Documented By: GODFREY Ondansetron HCl (Ondansetron Inj 2 Mg/Ml 2 Ml Vial) 4 mg IV NOW STA Stop: 04/03/24 18:49 Last Admin: 04/03/24 19:01 Dose: 4 mg Documented By: GODFREY Medical Decision Making Differential Diagnosis Differential diagnoses includes gastritis, cholecystitis, gastroenteritis, IBS, small bowel obstruction, pancreatitis, peritonitis, constipation, abdominal abcess, among others. Medical Records Attestation: I reviewed the patient's medical records. Home Medications was personally reviewed by me Laboratory Data Attestation: I reviewed the patient's lab results. 04/03/24 18:57 04/03/24 18:57 Lab Results 04/03/24 Range/Units 18:57 WBC 7.61 (4.8-10.8) K/ul RBC 4.52 (4.20-5.40) M/uL Hgb 13.8 (12.0-16.0) g/dl Hct 41.9 (37.0-47.0) % MCV 92.7 (80.0-100.0) fL MCH 30.5 (25.0-34.0) pg MCHC 32.9 (32.0-36.0) g/dL RDW Std Deviation 43.3 (36.4-46.3) fL RDW Coeff of Saritha 12.8 (11.5-14.5) % Plt Count 233 (130-400) K/uL MPV 10.8 (9.4-12.4) fL Immature Gran % (Auto) 0.3 % Neut % (Auto) 73.6 % Lymph % (Auto) 17.6 % [place] % (Auto) 6.7 % Eos % (Auto) 1.3 % Baso % (Auto) 0.5 % Neut # (Auto) 5.60 (1.40-6.50) K/uL Lymph # (Auto) 1.34 (1.20-3.40) K/uL [place] # (Auto) 0.51 (0.11-0.59) K/uL Eos # (Auto) 0.10 (0.00-0.50) K/uL Baso # (Auto) 0.04 (0.00-0.20) K/uL Immature Gran # (Auto) 0.02 (0.01-0.20) K/uL Sodium 139 (136-145) mmol/L Potassium 3.7 (3.5-5.1) mmol/L Chloride 105 (98-107) mmol/L Carbon Dioxide 26 (21-32) mmol/L Anion Gap 8 (3-11) BUN 7 (6-23) mg/dl Creatinine 0.75 (0.6-1.2) mg/dl Est Cr Clr Drug Dosing 206.2 ml/min eGFR 117.54 BUN/Creatinine Ratio 9.3 L (10-20) Glucose 103 H (70-99(Fasting)) mg/dl Calcium 9.7 (8.6-10.3) mg/dl Total Bilirubin 2.1 H D (0.2-1.0) mg/dl AST 164 H (13-39) U/L ALT 202 H (7-52) U/L Alkaline Phosphatase 106 H (34-104) U/L Total Protein 7.3 (6.0-8.3) gm/dl Albumin 4.2 (3.4-5.0) gm/dl Globulin 3.1 (2.5-4.0) gm/dl Albumin/Globulin Ratio 1.4 (0.9-2) Lipase 20 (11-82) U/L Imaging Data Radiologist's Impression: Abdomen/Pelvis CT 04/03/24 18:39 Exam(s): CT ABDOMEN + PELVIS With Contrast IV Amt: 118 cc opti 320 EXAM: CT Abdomen and Pelvis With Intravenous Contrast CLINICAL HISTORY: Reason for exam: abdominal pain, gallbaldder issues. TECHNIQUE: Axial computed tomography images of the abdomen and pelvis with intravenous contrast. CTDI is 28 mGy and DLP is 1598 mGy-cm. Automated exposure control was utilized for the study. A dose lowering technique was utilized adhering to the principles of ALARA. CONTRAST: Patient received 118 cc opti 320 of IV contrast COMPARISON: CT abdomen/pelvis on 03/20/2024 FINDINGS: Lung bases: Unremarkable. No mass. No consolidation. ABDOMEN: Liver: Probable hepatic steatosis. Hepatomegaly. Gallbladder and bile ducts: Unremarkable. No calcified stones. No ductal dilation. Pancreas: Unremarkable. No mass. No ductal dilation. Spleen: Borderline size of the spleen. Adrenals: Unremarkable. No mass. Kidneys and ureters: Unremarkable. No hydronephrosis or obstructing ureteral stone. Stomach and bowel: Unremarkable. No mucosal thickening. No bowel obstruction or inflammation. PELVIS: Appendix: Normal appendix. Bladder: Unremarkable. No mass. Reproductive: Unremarkable as visualized. ABDOMEN and PELVIS: Intraperitoneal space: Unremarkable. No free air. No significant fluid collection. Bones/joints: Bilateral L5 pars defects. No significant spondylolisthesis. Mild degenerative changes of the spine. No acute fracture. No dislocation. Soft tissues: Unremarkable. Vasculature: Unremarkable. No abdominal aortic aneurysm. Lymph nodes: Unremarkable. No enlarged lymph nodes. IMPRESSION: No acute findings in the abdomen or pelvis. Electronically signed by: Ortega Steven M.D. 04/03/24 21:19 PM MDM Narrative Patient is a 18-year-old female who presents to the emergency department with complaints of abdominal pain. Patient states that she is having midsternal chest pain that radiates around the right side of her chest and into her back. Patient has been worked up several times in the emergency department and has some gallbladder issues and is scheduled to have her gallbladder out on the of this month however the patient feels that she cannot wait that long. Patient notes that her pain has worsened and is not tolerable. Patient was seen in the emergency department last night for the same symptoms and had an ultrasound of her gallbladder which shows some gallbladder distention and a stone in the neck of her gallbladder without acute cholecystitis. Patient was evaluated by myself and findings are noted in the physical exam above. Patient was ordered IV placement with lab work that included a CBC, CMP, and lipase. Patient was also ordered a CT of the abdomen pelvis. Patient was ordered morphine and Zofran for her symptoms. Patient's lab work resulted with no elevated white blood cell count, her WBC was 7.61, however the patient has significantly more elevated LFTs. Patient's AST level was 164, ALT was 202 alkaline phosphatase was 106. Patient's total bilirubin was 2.1. Those levels are significantly higher than patient's lab work that was completed last night. Patient also had a CT of the abdomen and pelvis which was interpreted by radiology to show no calcified stones in the gallbladder and no ductal dilation there is no evidence of acute cholecystitis. However with the patient's previous imaging and current blood work I did reach out to general surgery. I discussed with CHANTELLE Gomez from general surgery about keeping the patient here for evaluation for cholecystectomy or at least further evaluation from their standpoint. Patricia was agreeable to keeping the patient in the hospital and discussed possibly ordering another MRCP tomorrow. Patricia asked that I reach out to medicine to have the patient admitted under medical services. I spoke with Carlene Peña with [facility] and gave her a full report on the patient's chief complaint, current status, and imaging and lab results. This was agreeable to admit the patient under her service. Please refer to [facility] and general surgery's documentation for further management evaluation of this patient. Impression Elevated LFTs, Biliary colic, Abdominal pain Discharge Plan Visit Data Chief Complaint: Abdominal Pain Stated Complaint: ABD PAIN, GALLBLADDER ISSUES ED Provider: Magdi Berg ED Midlevel Provider: Laura Blank Discharge Problem: Elevated LFTs, Biliary colic, Abdominal pain Patient Disposition: Admitted As Inpatient Forms Stand Alone Forms: My [facility] Prescriptions Prescriptions: No Action apple cider vinegar 500 mg tablet 500 mg PO DAILY multivitamin Tablet 1 tab PO DAILY levothyroxine 100 mcg tablet 100 mcg PO DAILY clonidine HCl 0.2 mg tablet 0.2 mg PO DAILY ibuprofen 200 mg Tablet 400 mg PO Q6H PRN (Reason: Pain) ergocalciferol (vitamin D2) 1,250 mcg (50,000 unit) capsule 50,000 unit PO WK Rx Instructions: Mondays norethindrone (contraceptive) 0.35 mg tablet 0.35 mg PO DAILY Wegovy 0.5 mg/0.5 mL pen injector 0.5 mg SUBCUT WK Rx Instructions: cephalexin 500 mg tablet 500 mg PO BID 4 Days Qty: 8 0RF ondansetron 4 mg tablet,disintegrating 4 mg PO Q12H PRN (Reason: nausea and vomiting) 3 Days Qty: 9 0RF oxycodone 5 mg tablet 5 mg PO Q8H PRN (Reason: pain) Qty: 9 0RF Referrals Referrals: Khoa Cruz MD [Primary Care Provider] - Discharge Problem: Abdominal pain Qualifiers: Abdominal location: epigastric Qualified Code(s): R10.13 - Epigastric pain
--- NOTE | 2024-04-03 21:20 | CT Scan Report ---
Exam(s): CT ABDOMEN + PELVIS With Contrast IV Amt: 118 cc opti 320 EXAM: CT Abdomen and Pelvis With Intravenous Contrast CLINICAL HISTORY: Reason for exam: abdominal pain, gallbaldder issues. TECHNIQUE: Axial computed tomography images of the abdomen and pelvis with intravenous contrast. CTDI is 28 mGy and DLP is 1598 mGy-cm. Automated exposure control was utilized for the study. A dose lowering technique was utilized adhering to the principles of ALARA. CONTRAST: Patient received 118 cc opti 320 of IV contrast COMPARISON: CT abdomen/pelvis on 03/20/2024 FINDINGS: Lung bases: Unremarkable. No mass. No consolidation. ABDOMEN: Liver: Probable hepatic steatosis. Hepatomegaly. Gallbladder and bile ducts: Unremarkable. No calcified stones. No ductal dilation. Pancreas: Unremarkable. No mass. No ductal dilation. Spleen: Borderline size of the spleen. Adrenals: Unremarkable. No mass. Kidneys and ureters: Unremarkable. No hydronephrosis or obstructing ureteral stone. Stomach and bowel: Unremarkable. No mucosal thickening. No bowel obstruction or inflammation. PELVIS: Appendix: Normal appendix. Bladder: Unremarkable. No mass. Reproductive: Unremarkable as visualized. ABDOMEN and PELVIS: Intraperitoneal space: Unremarkable. No free air. No significant fluid collection. Bones/joints: Bilateral L5 pars defects. No significant spondylolisthesis. Mild degenerative changes of the spine. No acute fracture. No dislocation. Soft tissues: Unremarkable. Vasculature: Unremarkable. No abdominal aortic aneurysm. Lymph nodes: Unremarkable. No enlarged lymph nodes. IMPRESSION: No acute findings in the abdomen or pelvis. Electronically signed by: Ortega Steven M.D. 04/03/24 21:19 PM
--- NOTE | 2024-04-03 21:45 | Surgery Consultation ---
Date of Consultation April 03, 2024 Assessment & Plan (1) Biliary colic: Patient is a 18-year-old female who has a past medical history significant for metabolic syndrome, depression/anxiety, ADHD, HTN, morbid obesity who presented to the ED this evening with complaints of abdominal pain and ongoing "gallbl adder attacks". To note, the patient has been seen multiple times within the last month by the surgical service for similar complaints. The patient has ultimately tried to wait to undergo any surgical intervention because she was hoping for a combined procedure when she has her gastric bypass surgery in the upcoming months. However due to her symptoms persisting, she presented back to the ED tonight and upon workup was found to have elevated LFTs compared to last evenings lab work. Her AST was 164, ALT 202, and Tbili 2.1. General surgery was consulted and I evaluated the patient at bedside. Currently her symptoms have resolved after receiving pain medication however I discussed with her that she will need to be admitted and have further workup for her elevated LFTs which will include an MRCP and possibly an ERCP. The patient is understanding and is agreeable at this time, she also expresses that due to multiple episodes of pain, and recurrent visits to the ED, she would like to have her gallbladder removed during this hospital stay. For now surgery team recommends the following: -Clear liquid diet, npo after midnight -MRCP in the morning to evaluate for possible choledocholithiasis. If positive will need GI and ERCP. If MRCP is negative and LFTs are downtrending we will plan for cholecystectomy. -Pain control -Medical management per primary team for chronic conditions, surgery team will continue to follow (2) Elevated LFTs: History of Present Illness Reason for Consultation: Biliary colic and elevated LFTs History of Present Illness Patient is a 18-year-old female who has a past medical history significant for metabolic syndrome, depression/anxiety, ADHD, HTN, morbid obesity who presented to the ED this evening with complaints of abdominal pain and ongoing "gallbladder attacks". To note, the patient has been seen twice within the last month by the surgical service with the most recently being last evening for similar complaints. However when seen last evening her symptoms had resolved and her lab work was within normal limits and she opted to go home and have outpatient follow up due to wanting to discuss her options with her bariatric surgeon. She was discharged late last evening from the ED and was given pain medication to take as needed if her symptoms returned an was instructed to call both our general surgery office and her bariatric surgeon for close follow up. The patient states once she had gotten home she did take an oxycodone and was able to get some sleep, however this morning her symptoms started again and despite taking pain medication her symptoms continued. She states the pain is still located in her right upper quadrant and epigastric region however today the pain started to radiate more into her chest and around to her back between her shoulder blades. The patient still denies any associated nausea or vomiting. She also denies any new onset of fevers or chills. Upon workup in the ED this evening she underwent CT A/P which did not reveal any acute findings. However, on repeat lab work her LFTs are elevated with AST 164, ALT 202 and Tbili of 2.1. Patient was seen and evaluated again this evening. She is resting comfortably in bed and states her symptoms have subsided due to receiving pain medication. However, I did discuss with her that because of her LFTs being elevated she will need to be admitted for further workup. Allergies Allergy/AdvReac Type Severity Reaction Status Date / Time No Known Allergies Allergy Verified 03/20/24 12:16 Home Medications Medication Instructions Recorded Confirmed Type apple cider vinegar 500 mg tablet 500 mg PO DAILY 07/23/20 04/03/24 History clonidine HCl 0.2 mg tablet 0.2 mg PO DAILY 03/20/24 04/03/24 History ergocalciferol (vitamin D2) 1,250 50,000 unit PO WK 03/20/24 04/03/24 History mcg (50,000 unit) capsule ibuprofen 200 mg tablet 400 mg PO Q6H PRN Pain 03/20/24 04/03/24 History levothyroxine 100 mcg tablet 100 mcg PO DAILY 03/20/24 04/03/24 History multivitamin 1 tab PO DAILY 03/20/24 04/03/24 History norethindrone (contraceptive) 0.35 0.35 mg PO DAILY 03/20/24 04/03/24 History mg tablet semaglutide (weight loss) 0.5 0.5 mg subcut WK 03/20/24 04/03/24 History mg/0.5 mL subcutaneous pen injector (Wegovy) cephalexin 500 mg tablet 500 mg PO BID 4 days #8 tabs 04/02/24 04/03/24 Rx ondansetron 4 mg disintegrating 4 mg PO Q12H PRN nausea and 04/02/24 04/03/24 Rx tablet vomiting 3 days #9 tabs oxycodone 5 mg tablet 5 mg PO Q8H PRN pain #9 tabs 04/02/24 04/03/24 Rx Patient History Medical History Hemorrhoid Avoid straining and return if continued blood Constipation Gastroesophageal reflux disease Surgical History No history of previous surgery Family History Mother Bipolar disorder ADHD Father No problems noted. Social History Smoking Status: Never smoker Second Hand Exposure: Yes (mom smokes); Do You Dip or Chew Tobacco: No; Hx Alcohol Use: No Hx Substance Use: No Preferred Language: Ukrainian Communication Ability: Effective Visual Impairment: No Limitations Hearing Ability: Normal Manager Of Tax Required: No Beliefs That Will Affect Care: None marital status: Single Current Living Situation: Parent and Family Current Living Situation Comment: mom/dad/ older brother Feels Safe at Home: Yes Childhood Exposure to Second-Hand Smoke: No Dental Care, Regularly: Yes Seatbelt Use: always Sunscreen Use: Yes Assistive Devices: None Review of Systems Review of Systems: All systems reviewed & are unremarkable except as noted in HPI & below Physical Exam Constitutional: WD/WN, vitals as above Respiratory: normal respiratory effort, lungs clear to auscultation Cardiovascular: RRR, no murmur, no edema Gastrointestinal (Abdomen): Abdomen obese, soft, nondistended. Slight TTP to the RUQ and epigastric region however negative Pope's sign. Otherwise there is no rebound, guarding, or peritonitis. Psychiatric: A+Ox3, euthymic affect Results & Data Vital Signs (Past 12 Hours) Vital Signs Temp Pulse Pulse Resp BP BP Pulse Ox 04/03/24 20:19 79 20 127/94 98 04/03/24 19:08 71 04/03/24 18:25 36.7 C 86 19 182/90 H 96 O2 Del Method 04/03/24 20:19 Room Air 04/03/24 19:08 04/03/24 18:25 Room Air Diagnostic Findings US Abdomen Limited, Right Upper Quadrant (04/02/2024) CLINICAL HISTORY: Reason for exam: RUQ pain. TECHNIQUE: Real-time ultrasound of the right upper quadrant with image documentation. COMPARISON: MRI 03/21/2024 FINDINGS: Liver: Liver measures 16.7 cm with increased echogenicity. Gallbladder: Gallbladder is distended. Multiple small stones layering dependently. There is a 6 mm stone in the neck of the gallbladder. No borderline wall thickening. No pericholecystic fluid. Unable to evaluate for Pope's sign secondary to pain medication per the tech note. Common bile duct: CBD nondistended measuring 2 mm. Pancreas: Unremarkable as visualized. Right kidney: Unremarkable. No hydronephrosis. IMPRESSION: 1. Gallbladder is distended. Multiple small stones layering dependently. There is a 6 mm stone in the neck of the gallbladder. No borderline wall thickening. No pericholecystic fluid. Unable to evaluate for Pope's sign secondary to pain medication per the tech note. 2. Hepatic steatosis. CT Abdomen and Pelvis With Intravenous Contrast CLINICAL HISTORY: Reason for exam: abdominal pain, gallbaldder issues. TECHNIQUE: Axial computed tomography images of the abdomen and pelvis with intravenous contrast. CTDI is 28 mGy and DLP is 1598 mGy-cm. Automated exposure control was utilized for the study. A dose lowering technique was utilized adhering to the principles of ALARA. CONTRAST: Patient received 118 cc opti 320 of IV contrast COMPARISON: CT abdomen/pelvis on 03/20/2024 FINDINGS: Lung bases: Unremarkable. No mass. No consolidation. ABDOMEN: Liver: Probable hepatic steatosis. Hepatomegaly. Gallbladder and bile ducts: Unremarkable. No calcified stones. No ductal dilation. Pancreas: Unremarkable. No mass. No ductal dilation. Spleen: Borderline size of the spleen. Adrenals: Unremarkable. No mass. Kidneys and ureters: Unremarkable. No hydronephrosis or obstructing ureteral stone. Stomach and bowel: Unremarkable. No mucosal thickening. No bowel obstruction or inflammation. PELVIS: Appendix: Normal appendix. Bladder: Unremarkable. No mass. Reproductive: Unremarkable as visualized. ABDOMEN and PELVIS: Intraperitoneal space: Unremarkable. No free air. No significant fluid collection. Bones/joints: Bilateral L5 pars defects. No significant spondylolisthesis. Mild degenerative changes of the spine. No acute fracture. No dislocation. Soft tissues: Unremarkable. Vasculature: Unremarkable. No abdominal aortic aneurysm. Lymph nodes: Unremarkable. No enlarged lymph nodes. IMPRESSION: No acute findings in the abdomen or pelvis. PG Care Time/CCT Total # of Minutes Spent Total Time Spent with Patient: Total time spent is greater than 50% in coordination of care (as documented) at patient's floor/unit and/or counseling patient: Coding Level of Care Code 22206 IN/OBS CONSULT LVL 2,35M Diagnoses Biliary colic K80.50 Elevated LFTs R79.89
--- NOTE | 2024-04-03 23:06 | History & Physical Report ---
Date of Service April 03, 2024 Assessment & Plan (1) Abdominal pain: (2) Biliary colic: (3) Elevated LFTs: Plan Abdominal Pain/Biliary colic - Patient received 4mg IV morphine sulfate and has been without abdominal pain similar to visit 04/02 - RUQ gallbladder U/S (04/02): Gallbladder distention, 6mm stone in gallbladder neck, no acute cholecystitis - MRCP (03/21): Cholelithiasis w/ gallbladder distention but without concern for choledocholithiasis or acute cholecystitis - CT AP (04/03): No acute abnormalities, gallbladder unremarkable - Surgery consulted appreciate recs - NPO after midnight - MRCP ordered, potential ERCP tomorrow Elevated LFTs - AST: 164, ALT: 202. T. bili: 2.1, Alk phos: 106 - Likely combination of cholelithiasis and fatty liver disease History of Present Illness Chief Complaint: Abdominal pain Primary Care Provider: Khoa Cruz MD Sarah Sosa is a 18 y/o F with a past medical history of obesity, HTN, OHS, arriving to the ED after being discharged with pain medication yesterday. Patient reports that she was without pain when she left the ED yesterday, but later in the night her upper abdominal pain started again, around a 7/10 in intensity. Patient took Oxycodone 5mg around midnight today without relief in her symptoms. Patient took another oxycodone 5mg around 11am today but pain remained constant at a 7/10. Patient took two Tylenol pills around 3pm and was without pain for approximately 30 minutes and then reports that her pain became unbearable 10/10 in intensity before arriving at the ED. Patient reports that her epigastric pain has been similar to her ED visit yesterday, but also had new pain between her shoulder blades. Patient reports that she is on month 5/6 of a weight loss program and plans to meet with her bariatric surgeon to discuss potential bariatric surgery on 04/08. The patient was seen 2 weeks ago with similar abdominal pain and had a MRCP done that was positive for cholelithiasis and gallbladder distention but was otherwise within normal limits. Patient reports being without pain for approximately 2 weeks until her ED visit yesterd ay. In the ED today, patient received 4mg IV morphine sulfate and is now without any pain or symptoms. Patient has not had any nausea or vomiting throughout her ongoing abdominal pain. Patient denies pleuritic chest pain, SOB, cough, wheeze, palpitations, or chest tightness/pressure. Allergies Allergy/AdvReac Type Severity Reaction Status Date / Time No Known Allergies Allergy Verified 03/20/24 12:16 Home Medications Medication Instructions Recorded Confirmed Type apple cider vinegar 500 mg tablet 500 mg PO DAILY 07/23/20 04/03/24 History clonidine HCl 0.2 mg tablet 0.2 mg PO DAILY 03/20/24 04/03/24 History ergocalciferol (vitamin D2) 1,250 50,000 unit PO WK 03/20/24 04/03/24 History mcg (50,000 unit) capsule ibuprofen 200 mg tablet 400 mg PO Q6H PRN Pain 03/20/24 04/03/24 History levothyroxine 100 mcg tablet 100 mcg PO DAILY 03/20/24 04/03/24 History multivitamin 1 tab PO DAILY 03/20/24 04/03/24 History norethindrone (contraceptive) 0.35 0.35 mg PO DAILY 03/20/24 04/03/24 History mg tablet semaglutide (weight loss) 0.5 0.5 mg subcut WK 03/20/24 04/03/24 History mg/0.5 mL subcutaneous pen injector (Wegovy) cephalexin 500 mg tablet 500 mg PO BID 4 days #8 tabs 04/02/24 04/03/24 Rx ondansetron 4 mg disintegrating 4 mg PO Q12H PRN nausea and 04/02/24 04/03/24 Rx tablet vomiting 3 days #9 tabs oxycodone 5 mg tablet 5 mg PO Q8H PRN pain #9 tabs 04/02/24 04/03/24 Rx Past Med/Surg History Problem List Abdominal pain (Acute) Biliary colic (Acute) Elevated LFTs (Acute) Cystitis (Acute) Biliary colic (Acute) Biliary colic Choledocholithiasis Acute cholecystitis Asymptomatic bacteriuria Obesity hypoventilation syndrome Transaminitis (Acute) Epigastric pain Sleep apnea Hematuria Strain of mid-back Carpal tunnel syndrome Metabolic syndrome BMI (body mass index), pediatric, 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 Social History Smoking Status: Never smoker Second Hand Exposure: Yes (mom smokes); Do You Dip or Chew Tobacco: No; Hx Alcohol Use: No Hx Substance Use: No Preferred Language: Trinidadian Communication Ability: Effective Visual Impairment: No Limitations Hearing Ability: Normal Workday Financials Consultant Required: No Beliefs That Will Affect Care: None marital status: Single Current Living Situation: Parent and Family Current Living Situation Comment: mom/dad/ older brother Feels Safe at Home: Yes Childhood Exposure to Second-Hand Smoke: No Dental Care, Regularly: Yes Seatbelt Use: always Sunscreen Use: Yes Assistive Devices: None Review of Systems Review of Systems: All systems reviewed & are unremarkable except as noted in HPI & below Physical Exam Physical Exam: General: patient resting comfortably, NAD, non-toxic in appearance, answers questions appropriately. Skin: warm, dry, intact HEENT: NC/AT, anicteric sclera, conjunctiva without injection, moist mucus membranes. Heart: +S1/S2, regular, no m/r/g Lungs: equal air entry bilaterally, no rales/rhonchi/wheezes Abd: +BS, soft, NT/ND Ext: warm, no clubbing/cyanosis or edema, Rosenda's neg. Neuro: nonfocal, speech intact, no facial droop, moving all extremities. Results & Data Results & Data Vital Signs (Past 12 Hours) Vital Signs Temp Pulse Pulse Resp BP BP Pulse Ox 04/03/24 22:00 68 18 131/65 98 04/03/24 20:19 79 20 127/94 98 04/03/24 19:08 71 04/03/24 18:25 36.7 C 86 19 182/90 H 96 O2 Del Method 04/03/24 22:00 Room Air 04/03/24 20:19 Room Air 04/03/24 19:08 04/03/24 18:25 Room Air Laboratory Results Lab Results 04/03/24 Range/Units 18:57 WBC 7.61 (4.8-10.8) K/ul RBC 4.52 (4.20-5.40) M/uL Hgb 13.8 (12.0-16.0) g/dl Hct 41.9 (37.0-47.0) % MCV 92.7 (80.0-100.0) fL MCH 30.5 (25.0-34.0) pg MCHC 32.9 (32.0-36.0) g/dL RDW Std Deviation 43.3 (36.4-46.3) fL RDW Coeff of Saritha 12.8 (11.5-14.5) % Plt Count 233 (130-400) K/uL MPV 10.8 (9.4-12.4) fL Immature Gran % (Auto) 0.3 % Neut % (Auto) 73.6 % Lymph % (Auto) 17.6 % Stoddard % (Auto) 6.7 % Eos % (Auto) 1.3 % Baso % (Auto) 0.5 % Neut # (Auto) 5.60 (1.40-6.50) K/uL Lymph # (Auto) 1.34 (1.20-3.40) K/uL Stoddard # (Auto) 0.51 (0.11-0.59) K/uL Eos # (Auto) 0.10 (0.00-0.50) K/uL Baso # (Auto) 0.04 (0.00-0.20) K/uL Immature Gran # (Auto) 0.02 (0.01-0.20) K/uL Sodium 139 (136-145) mmol/L Potassium 3.7 (3.5-5.1) mmol/L Chloride 105 (98-107) mmol/L Carbon Dioxide 26 (21-32) mmol/L Anion Gap 8 (3-11) BUN 7 (6-23) mg/dl Creatinine 0.75 (0.6-1.2) mg/dl Est Cr Clr Drug Dosing 206.2 ml/min eGFR 117.54 BUN/Creatinine Ratio 9.3 L (10-20) Glucose 103 H (70-99(Fasting)) mg/dl Calcium 9.7 (8.6-10.3) mg/dl Total Bilirubin 2.1 H D (0.2-1.0) mg/dl AST 164 H (13-39) U/L ALT 202 H (7-52) U/L Alkaline Phosphatase 106 H (34-104) U/L Total Protein 7.3 (6.0-8.3) gm/dl Albumin 4.2 (3.4-5.0) gm/dl Globulin 3.1 (2.5-4.0) gm/dl Albumin/Globulin Ratio 1.4 (0.9-2) Lipase 20 (11-82) U/L Diagnostic Findings Abdomen/Pelvis CT 04/03/24 18:39 Exam(s): CT ABDOMEN + PELVIS With Contrast IV Amt: 118 cc opti 320 EXAM: CT Abdomen and Pelvis With Intravenous Contrast CLINICAL HISTORY: Reason for exam: abdominal pain, gallbaldder issues. TECHNIQUE: Axial computed tomography images of the abdomen and pelvis with intravenous contrast. CTDI is 28 mGy and DLP is 1598 mGy-cm. Automated exposure control was utilized for the study. A dose lowering technique was utilized adhering to the principles of ALARA. CONTRAST: Patient received 118 cc opti 320 of IV contrast COMPARISON: CT abdomen/pelvis on 03/20/2024 FINDINGS: Lung bases: Unremarkable. No mass. No consolidation. ABDOMEN: Liver: Probable hepatic steatosis. Hepatomegaly. Gallbladder and bile ducts: Unremarkable. No calcified stones. No ductal dilation. Pancreas: Unremarkable. No mass. No ductal dilation. Spleen: Borderline size of the spleen. Adrenals: Unremarkable. No mass. Kidneys and ureters: Unremarkable. No hydronephrosis or obstructing ureteral stone. Stomach and bowel: Unremarkable. No mucosal thickening. No bowel obstruction or inflammation. PELVIS: Appendix: Normal appendix. Bladder: Unremarkable. No mass. Reproductive: Unremarkable as visualized. ABDOMEN and PELVIS: Intraperitoneal space: Unremarkable. No free air. No significant fluid collection. Bones/joints: Bilateral L5 pars defects. No significant spondylolisthesis. Mild degenerative changes of the spine. No acute fracture. No dislocation. Soft tissues: Unremarkable. Vasculature: Unremarkable. No abdominal aortic aneurysm. Lymph nodes: Unremarkable. No enlarged lymph nodes. IMPRESSION: No acute findings in the abdomen or pelvis. Electronically signed by: Ortega Steven M.D. 04/03/24 21:19 PM Supervising Physician Co-Signing Physician Notes Patient seen and examined, chart reviewed, case discussed with Dr. Mauro and I agree with the assessment and plan as above. In brief, patient is a 18yo female with history of obesity, HTN, anxiety/ADHD presenting from home with recurrent upper abdominal pain. Patient was admitted to [facility] from 03/20/24 - 03/21/24 after presenting with epigastric pain. Workup at that time included abnormal LFTs (AFS=977, BMU=319, QD=592 and Tbili=1.3), RUQUS with presence of stones, mild gallbladder distention and mild dilation of CBD to 8mm. MRCP as performed with no biliary ductal dilatation, findings not highly supportive of acute cholecystitis. She was ultimately discharged home. She returned to the ER on 04/02/24 with similar symptoms - upper abdominal pain. Workup with RUQUS revealing a distended gallbladder with multiple stones, a 6mm stone in the gallbladder neck but no findings of acute cholecystitis. LFTs with AST=49, ALT=57, AP=82 and Tbili=0.6. She was treated with Ceftriaxone, Morphine, Zofran. Case was discussed with Surgery and patient was ultimately discharged home with Oxycodone, Zofran and Cephalexin (for presumed UTI). She reports she has not filled her prescriptions for tonight. She denies urinary complaints. Returning with severe upper abdominal pain as above In the ER she is afebrile, hypertensive Skin - no jaundice HEENT - MMM, neck supple Heart - +S1/S2, regular, no m/r/g Lungs - CTA anteriorly, no rales/rhonchi/wheezes Abd - +BS, mild upper abdominal tenderness with palpation but no rebound/guarding/peritonitis Ext - warm, well perfused Labs and images reviewed No leukocytosis Mild worsening of LFTs when compared to 04/02/24 ER visit - AST ecz=559, CFQ=294, HC=289 and Tbili=2.[address] as above with no acute findings in the liver, GB or abdomen Assessment/Plan - biliary colic, ?choledocholithiasis. No evidence of infection, acute cholecystitis or cholangitis at present. Pain is well controlled. No nausea -Observation to medical -MRCP ordered - patient should go this AM at 03:30 -Pending results of MRCP patient may need GI consultation for ERCP - Dr. Bender should be long chain quiller tender 04/04/24 and should be able to perform ERCP if necessary -Repeat labs in AM, BMP, CBC, LFTs and check INR -Check urine test -Appreciate General Surgery assistance - possible cholecystectomy this admission -Remainder as above Resident Activity Tracking Resident Involvement: Resident Care Provided Care Provided: Adult Hospital Medicine (1) Abdominal pain Abdominal location: epigastric Qualified Code(s): R10.13 - Epigastric pain
--- NOTE | 2024-04-04 01:21 | Billing Data ---
Date of Service April 04, 2024 Coding Level of Care Code 76811 INT INP/OBS CARE
[2024-04-04] MEDS: LACTATED RINGER'S 1,000 ML IV SCH (02:40)
[2024-04-04] MEDS: ONDANSETRON INJ 2 MG/ML 2 ML VIAL IV PRN (03:54)
[2024-04-04] MEDS: MoRPHine SULFATE 2 MG/ML CARP IV PRN (03:54)
[2024-04-04] MEDS: LEVOTHYROXINE SODIUM 100 MCG TABLET PO SCH (04:59)
--- NOTE | 2024-04-04 05:24 | Magnetic Resonance Report ---
EXAM: MR MRCP CLINICAL HISTORY: abd pain radiating between shoulder blades. has been ongoing. worse today. patient was here for same thing on 03/20. had MRCP 03/21/24. Gallbladder US 04/02/24. CT Abdomen 03/20/24 and 04/03/24. liver ultrasound 03/20/24. ERAD. 1018 IMAGES. ROOM 286-2 TECHNIQUE: Multiplanar multisequence magnetic resonance imaging of the abdomen without intravenous contrast. MRCP images were also acquired. COMPARISON: 03/21/2024. FINDINGS: Minimal dilatation of the central biliary radicles with dilated extra-hepatic biliary tracts showing smooth tapering of the distal end of the common bile duct with no obstructing pancreatic head masses or sizeable intraluminal low signal calculi. The common hepatic duct reaches 10 mm in diameter. Distended gall bladder showing multiple tiny 2-4 mm calculi. Clear surrounding fat planes. Average sized liver showing no masses. The spleen, adrenals, aorta and IVC are unremarkable. Unremarkable pancreas with clear surrounding fat planes. No pancreatic duct dilatation. Prominent bradly hepatis and portocaval lymph nodes. No ascites. IMPRESSION: 1. Cholelithiasis with No acute cholecystitis. Stable. 2. Prominent central and dilated extra-hepatic biliary tracts showing smooth tapering of the distal end of the common bile duct as described. New finding. Advise clinical correlation and follow up. Electronically signed by Anibal Ta 04-04-2024 05:24 AM
[2024-04-04] MEDS: cloNIDine HCL 0.1 MG TAB PO SCH (07:34)
[2024-04-04] MEDS: ACETAMINOPHEN 325 MG TAB PO PRN (07:34)
[2024-04-04 08:05] LABS: Hematocrit (blood only) 39.1 % (37.0-47.0); Hemoglobin 12.8 g/dl (12.0-16.0); Mean Corpuscular Hemoglobin 30.6 pg (25.0-34.0); Mean Corpuscular Hgb Conc 32.7 g/dL (32.0-36.0); Mean Corpuscular Volume 93.5 fL (80.0-100.0); Mean Platelet Volume 11.6 fL (9.4-12.4); Platelet Count 200 K/uL (130-400); RDW Coefficient of Variation 13.1 % (11.5-14.5); RDW Standard Deviation 44.5 fL (36.4-46.3); Red Blood Count 4.18 M/uL (4.20-5.40); White Blood Count 7.03 K/ul (4.8-10.8)
--- NOTE | 2024-04-04 08:18 | Hospitalist Progress Note ---
Date of Service April 04, 2024 Assessment & Plan (1) Biliary colic: Plan: 18yo female with history of obesity, HTN, anxiety/ADHD presenting from home with recurrent upper abdominal pain. Patient was admitted to [facility] from 03/20/24 - 03/21/24 after presenting with epigastric pain. Workup at that time included abnormal LFTs (CPL=538, ZEI=438, FB=644 and Tbili=1.3), RUQUS with presence of stones, mild gallbladder distention and mild dilation of CBD to 8mm. MRCP as performed with no biliary ductal dilatation, findings not highly supportive of acute cholecystitis. She was ultimately discharged home. She returned to the ER on 04/02/24 with similar symptoms - upper abdominal pain. Workup with RUQUS revealing a distended gallbladder with multiple stones, a 6mm stone in the gallbladder neck but no findings of acute cholecystitis. LFTs with AST=49, ALT=57, AP=82 and Tbili=0.6. She was treated with Ceftriaxone, Morphine, Zofran. Case was discussed with Surgery and patient was ultimately discharged home with Oxycodone, Zofran and Cephalexin (for presumed UTI). New finding of extrahepatic biliary dilatation with smooth tapering of CBD (new finding since last MRCP 03/21), cholelithiasis, dilated GB without findings of cholecystitis, prominent portohepatic and portocaval LNs -planned for ERCP today addendumERCP 04/04 with choledocholithiasis, sphincterotomy and balloon extraction performed with sludge debris and 1 stone extracted - plan per surgical team is interval lap sherry either as an outpatient or this Sunday - no evidence of acute cholecystitis - advance diet as tolerated, ordered CMP for a.m. (2) Obesity hypoventilation syndrome: Plan: increased risk of respiratory failure with anesthesia, opioids and other sedating medications would monitor with continuous pulse oximetry postop (3) Sleep apnea: Plan: as above (4) Metabolic syndrome: Plan: noted (5) Depression with anxiety: (6) Morbid obesity with BMI of 60.0-69.9, adult: Plan: she is under evaluation for bariatric surgery with [facility] Plan DVT prophylaxisSCDs, avoid heparinoid for now with sphincterotomy performed today Admission and Anticipated Discharge Date Admission Date: April 04, 2024 Subjective seen this morning prior to ERCP she continued to have right upper quadrant pain radiating to her back not nauseated at present time does feel hungry/thirsty Physical Exam 2 Physical Exam: PHYSICAL EXAMINATION Last 24h vital signs reviewed, see documentation in flowsheet General: comfortable appearing, no distress, sitting upright in bed watching TV HEENT: Normocephalic, atraumatic, pupils round and equal, sclerae anicteric, no conjunctival injection, moist mucus membranes Lungs: Normal respiratory effort. Clear to auscultation bilaterally. No RRW Heart: Regular rate and rhythm, no murmurs. No JVD Abdomen: Soft, tender to palpation in right upper quadrant without rebound rigidity or guarding. Bowel sounds present. Extremities: Warm, dry, well-perfused. No extremity edema. Neuro: Alert and oriented x 4, face symmetric, moves 4 extremities well Psych: Normal affect and behavior Results & Data Results & Data Vital Signs (Past 12 Hours) Vital Signs Temp Pulse Pulse Resp BP BP Pulse Ox 04/04/24 07:53 36.7 C 67 16 168/115 H 99 04/04/24 05:09 80 21 95 04/04/24 02:30 04/04/24 02:18 36.6 C 85 18 145/80 H 97 04/04/24 02:06 87 18 134/75 94 04/04/24 02:00 87 18 134/75 94 04/04/24 00:00 94 H 18 157/98 H 97 04/03/24 23:02 75 04/03/24 22:00 68 18 131/65 98 04/03/24 20:19 79 20 127/94 98 O2 Del Method FiO2 04/04/24 07:53 Room Air 04/04/24 05:09 21 04/04/24 02:30 Room Air 04/04/24 02:18 Room Air 04/04/24 02:06 Room Air 04/04/24 02:00 Room Air 04/04/24 00:00 Room Air 04/03/24 23:02 04/03/24 22:00 Room Air 04/03/24 20:19 Room Air Laboratory Results 04/04/24 07:22 04/04/24 07:22 bilirubin 2.1, AST 164, ALT 202, alk phos 106 Diagnostic Findings Abdomen/Pelvis CT 04/03/24 18:39 Exam(s): CT ABDOMEN + PELVIS With Contrast IV Amt: 118 cc opti 320 EXAM: CT Abdomen and Pelvis With Intravenous Contrast CLINICAL HISTORY: Reason for exam: abdominal pain, gallbaldder issues. TECHNIQUE: Axial computed tomography images of the abdomen and pelvis with intravenous contrast. CTDI is 28 mGy and DLP is 1598 mGy-cm. Automated exposure control was utilized for the study. A dose lowering technique was utilized adhering to the principles of ALARA. CONTRAST: Patient received 118 cc opti 320 of IV contrast COMPARISON: CT abdomen/pelvis on 03/20/2024 FINDINGS: Lung bases: Unremarkable. No mass. No consolidation. ABDOMEN: Liver: Probable hepatic steatosis. Hepatomegaly. Gallbladder and bile ducts: Unremarkable. No calcified stones. No ductal dilation. Pancreas: Unremarkable. No mass. No ductal dilation. Spleen: Borderline size of the spleen. Adrenals: Unremarkable. No mass. Kidneys and ureters: Unremarkable. No hydronephrosis or obstructing ureteral stone. Stomach and bowel: Unremarkable. No mucosal thickening. No bowel obstruction or inflammation. PELVIS: Appendix: Normal appendix. Bladder: Unremarkable. No mass. Reproductive: Unremarkable as visualized. ABDOMEN and PELVIS: Intraperitoneal space: Unremarkable. No free air. No significant fluid collection. Bones/joints: Bilateral L5 pars defects. No significant spondylolisthesis. Mild degenerative changes of the spine. No acute fracture. No dislocation. Soft tissues: Unremarkable. Vasculature: Unremarkable. No abdominal aortic aneurysm. Lymph nodes: Unremarkable. No enlarged lymph nodes. IMPRESSION: No acute findings in the abdomen or pelvis. Electronically signed by: Ortega Steven M.D. 04/03/24 21:19 PM Cholangiopancreatography MRI 04/04/24 02:21 EXAM: MR MRCP CLINICAL HISTORY: abd pain radiating between shoulder blades. has been ongoing. worse today. patient was here for same thing on 03/20. had MRCP 03/21/24. Gallbladder US 04/02/24. CT Abdomen 03/20/24 and 04/03/24. liver ultrasound 03/20/24. ERAD. 1018 IMAGES. ROOM 286-2 TECHNIQUE: Multiplanar multisequence magnetic resonance imaging of the abdomen without intravenous contrast. MRCP images were also acquired. COMPARISON: 03/21/2024. FINDINGS: Minimal dilatation of the central biliary radicles with dilated extra-hepatic biliary tracts showing smooth tapering of the distal end of the common bile duct with no obstructing pancreatic head masses or sizeable intraluminal low signal calculi. The common hepatic duct reaches 10 mm in diameter. Distended gall bladder showing multiple tiny 2-4 mm calculi. Clear surrounding fat planes. Average sized liver showing no masses. The spleen, adrenals, aorta and IVC are unremarkable. Unremarkable pancreas with clear surrounding fat planes. No pancreatic duct dilatation. Prominent bradly hepatis and portocaval lymph nodes. No ascites. IMPRESSION: 1. Cholelithiasis with No acute cholecystitis. Stable. 2. Prominent central and dilated extra-hepatic biliary tracts showing smooth tapering of the distal end of the common bile duct as described. New finding. Advise clinical correlation and follow up. Electronically signed by Anibal Ta 04-04-2024 05:24 AM PG Care Time/CCT Total # of Minutes Spent Total Time Spent with Patient: Total time spent is greater than 50% in coordination of care (as documented) at patient's floor/unit and/or counseling patient: Coding Level of Care Code 38975 SUB INP/OBS CARE 2/35MIN Diagnoses Biliary colic K80.50 Obesity hypoventilation syndrome E66.2 Sleep apnea G47.30 Metabolic syndrome E88.81 Depression with anxiety F41.8 Morbid obesity with BMI of 60.0-69.9, adult E66.01; Z68.44
[2024-04-04 08:34] LABS: Prothrombin Time 10.8 Seconds (9.0-12.0)
[2024-04-04 08:57] LABS: Albumin Level 3.9 gm/dl (3.4-5.0); BUN Creatinine Ratio 7.4 (10-20); Bilirubin Direct 0.5 mg/dl (0-0.2); Bilirubin,Total 1.3 mg/dl (0.2-1.0); Calcium 9.3 mg/dl (8.6-10.3); Creatinine Clr Calc Pharmacy 226.9 ml/min; Potassium 3.8 mmol/L (3.5-5.1); Total Protein 6.4 gm/dl (6.0-8.3)
--- NOTE | 2024-04-04 09:54 | Gastrointestinal Consultation ---
Date of Consultation April 04, 2024 Assessment & Plan (1) Abnormal magnetic resonance cholangiopancreatography (MRCP): Keep NPO. Plan for ERCP today. Discussed risks vs benefits of the procedure. Will order pre-op antibiotic. Continue to follow LFTs. Agree with general surgery consult for further planning regarding cholecystectomy. Supervising Physician Co-Signing Physician Notes I saw and examined this patient with our nurse practitioner and agree with her assessment and plan. Clinical picture lab work and imaging consistent with high suspicion for common bile duct stone. Need to also could consider the possibility Mirizzi syndrome as cause for abnormal LFTs. Will proceed with ERCP prior to cholecystectomy. Risks and benefits explained in detail to patient and she agrees to move forward with the procedure. History of Present Illness Reason for Consultation: Abnormal LFTs, abnormal imaging Attending Physician: Yuridia Peña, DO History of Present Illness Sarah Sosa is a pleasant 18 yo female with PMH of obesity, HTN, & OHS who presented to the ED after a previous confinement for the same issue. She has been following with bariatric surgery and general surgery as she plans to have gastric bypass and was hoping to coordinate a cholecystectomy at the same time due to ongoing gallbladder issues. Patient was readmitted yesterday with persistent epigastric and RUQ abdominal pain that did not respond to outpatient analgesics. She was noted to have elevated LFTs with a bili max around 2.1. LFTs have ranged from 100s-200s over the past several weeks. She was readmitted and had an MRCP that indicated cholelithiasis as well as prominence and dilation of the extra hepatic biliary ducts with a tapering of the distal CBD. This is changed from her previous MRCP. General surgery is following for cholecystectomy planning at this point. Patient is agreeable to ERCP. Allergies Allergy/AdvReac Type Severity Reaction Status Date / Time No Known Allergies Allergy Verified 03/20/24 12:16 Home Medications Medication Instructions Recorded Confirmed Type apple cider vinegar 500 mg tablet 500 mg PO DAILY 07/23/20 04/03/24 History clonidine HCl 0.2 mg tablet 0.2 mg PO DAILY 03/20/24 04/03/24 History ergocalciferol (vitamin D2) 1,250 50,000 unit PO WK 03/20/24 04/03/24 History mcg (50,000 unit) capsule ibuprofen 200 mg tablet 400 mg PO Q6H PRN Pain 03/20/24 04/03/24 History levothyroxine 100 mcg tablet 100 mcg PO DAILY 03/20/24 04/03/24 History multivitamin 1 tab PO DAILY 03/20/24 04/03/24 History norethindrone (contraceptive) 0.35 0.35 mg PO DAILY 03/20/24 04/03/24 History mg tablet semaglutide (weight loss) 0.5 0.5 mg subcut WK 03/20/24 04/03/24 History mg/0.5 mL subcutaneous pen injector (Wegovy) cephalexin 500 mg tablet 500 mg PO BID 4 days #8 tabs 04/02/24 04/03/24 Rx ondansetron 4 mg disintegrating 4 mg PO Q12H PRN nausea and 04/02/24 04/03/24 Rx tablet vomiting 3 days #9 tabs oxycodone 5 mg tablet 5 mg PO Q8H PRN pain #9 tabs 04/02/24 04/03/24 Rx Patient History Medical History (Updated 04/04/24 @ 13:34 by Kun Masters MD) Morbid obesity with BMI of 60.0-69.9, adult Biliary colic Choledocholithiasis Obesity hypoventilation syndrome Hypertension Hypothyroidism, unspecified Depression with anxiety follows oasis Hemorrhoid Avoid straining and return if continued blood Constipation Gastroesophageal reflux disease Surgical History No history of previous surgery Family History Mother Bipolar disorder ADHD Father No problems noted. Social History Smoking Status: Never smoker Second Hand Exposure: Yes (mom smokes); Do You Dip or Chew Tobacco: No; Hx Alcohol Use: No Hx Substance Use: No Preferred Language: Scottish Communication Ability: Effective Visual Impairment: No Limitations Hearing Ability: Normal Urologist Md Required: No Beliefs That Will Affect Care: None marital status: Single Current Living Situation: Parent and Family Current Living Situation Comment: mom/dad/ older brother Feels Safe at Home: Yes Childhood Exposure to Second-Hand Smoke: No Dental Care, Regularly: Yes Seatbelt Use: always Sunscreen Use: Yes Assistive Devices: None Review of Systems Constitutional: no fever and no chills Respiratory: no cough Gastrointestinal: + abdominal pain Physical Exam Constitutional: well developed Respiratory: normal respiratory effort Gastrointestinal (Abdomen): Inspection/Auscultation: abdomen normal to inspection Percussion/Palpation: + abdomen tender and abdomen soft Psychiatric: Orientation: alert and oriented x 3 Results & Data Vital Signs (Past 12 Hours) Vital Signs Temp Pulse Pulse Resp BP BP Pulse Ox 04/04/24 08:36 04/04/24 07:53 36.7 C 67 16 168/115 H 99 04/04/24 05:09 80 21 95 04/04/24 02:30 04/04/24 02:18 36.6 C 85 18 145/80 H 97 04/04/24 02:06 87 18 134/75 94 04/04/24 02:00 87 18 134/75 94 04/04/24 00:00 94 H 18 157/98 H 97 04/03/24 23:02 75 04/03/24 22:00 68 18 131/65 98 O2 Del Method FiO2 04/04/24 08:36 Room Air 04/04/24 07:53 Room Air 04/04/24 05:09 21 04/04/24 02:30 Room Air 04/04/24 02:18 Room Air 04/04/24 02:06 Room Air 04/04/24 02:00 Room Air 04/04/24 00:00 Room Air 04/03/24 23:02 04/03/24 22:00 Room Air PG Care Time/CCT Total # of Minutes Spent Total Time Spent with Patient: Total time spent is greater than 50% in coordination of care (as documented) at patient's floor/unit and/or counseling patient: Coding Level of Care Code 95629 IN/OBS CONSULT LVL 4,60M Diagnoses Abnormal magnetic resonance cholangiopancreatography (MRCP) R93.3
--- NOTE | 2024-04-04 12:51 | Surgery Progress Note ---
<Statement entered by Kasey Castillo DO - 04/04/24 13:22> I have seen this patient this am. She would like to consider staying through the weekend with expectation for surgery on Sunday. Will talk to her in the am to finalize plans after ERCP. Date of Service April 04, 2024 Assessment & Plan (1) Biliary colic: Plan: Patient here with abdominal pain; she does have + gallstones -Due to elevation in LFTs yesterday an MRCP was obtained that showed + stones without evidence of cholecystitis. it also shows Prominent central and dilated extra-hepatic biliary tracts showing smooth tapering of the distal end of the common bile duct -WBC 7. LFTs yesterday showed Tb 2.1, ast 164, alt 202. They remain elevated today, but downtrending - GI is on board and planing on performing ERCP today -We will follow up on results. discussed since there is no evidence of cholecystitis she may consider dispo over the wknd with plans for elective outpt cholecystectomy. however patient is frustrated with these recurring attacks and wishes to have it performed while here. From our perspective likely wait for a wkday to perform so we have full staff in OR, therefore pending ERCP she may end up staying through and perform case this upcoming sunday -We will re-evaluate plans for surgical intervention tomorrow AM Admission and Anticipated Discharge Date Admission Date: April 04, 2024 Subjective Patient reports pain that has been coming and going over the last week or so. It returns despite taking narcotics. Has been eating low fat cheese/eggs and reports trying to stick to low fat. Is getting frustrated with these "attacks" Physical Exam Physical Exam: awake/alert, no distress Gastrointestinal (Abdomen): Percussion/Palpation: abdomen soft Results & Data Vital Signs (Past 12 Hours) Vital Signs Temp Pulse Pulse Resp BP BP Pulse Ox 04/04/24 11:13 98.2 F 80 18 151/84 H 94 04/04/24 08:36 04/04/24 07:53 98.1 F 67 16 168/115 H 99 04/04/24 05:09 80 21 95 04/04/24 02:30 04/04/24 02:18 97.9 F 85 18 145/80 H 97 04/04/24 02:06 87 18 134/75 94 04/04/24 02:00 87 18 134/75 94 O2 Del Method FiO2 04/04/24 11:13 Room Air 04/04/24 08:36 Room Air 04/04/24 07:53 Room Air 04/04/24 05:09 21 04/04/24 02:30 Room Air 04/04/24 02:18 Room Air 04/04/24 02:06 Room Air 04/04/24 02:00 Room Air PG Care Time/CCT Total # of Minutes Spent Total Time Spent with Patient: Total time spent is greater than 50% in coordination of care (as documented) at patient's floor/unit and/or counseling patient: Coding Level of Care Code 83679 SUB INP/OBS CARE 06/14MIN Diagnoses Biliary colic K80.50
--- NOTE | 2024-04-04 13:34 | Anesthesiology Consultation ---
Date of Service April 04, 2024 Assessment & Plan (1) Encounter for pre-operative examination: Chart Review Chart Review: Acceptable Risk for Surgery History Surgery Operation Date: 04/04/24 10:20 Proposed Procedures p Endoscopic Retrograde Cholangiopancreatogram - Pierce Bender MD Height/Weight Height: 5 ft 7 in Weight: 177.6 kg Allergies Allergy/AdvReac Type Severity Reaction Status Date / Time No Known Allergies Allergy Verified 03/20/24 12:16 Medications Home Medications Medication Instructions Recorded Confirmed Last Taken apple cider vinegar 500 mg tablet 500 mg PO DAILY 07/23/20 04/03/24 03/19/24 clonidine HCl 0.2 mg tablet 0.2 mg PO DAILY 03/20/24 04/03/24 03/19/24 ergocalciferol (vitamin D2) 1,250 50,000 unit PO WK 03/20/24 04/03/24 03/17/24 mcg (50,000 unit) capsule ibuprofen 200 mg tablet 400 mg PO Q6H PRN Pain 03/20/24 04/03/24 Unknown levothyroxine 100 mcg tablet 100 mcg PO DAILY 03/20/24 04/03/24 03/19/24 multivitamin 1 tab PO DAILY 03/20/24 04/03/24 03/19/24 norethindrone (contraceptive) 0.35 0.35 mg PO DAILY 03/20/24 04/03/24 03/19/24 mg tablet semaglutide (weight loss) 0.5 0.5 mg subcut WK 03/20/24 04/03/24 03/13/24 mg/0.5 mL subcutaneous pen injector (Brown) cephalexin 500 mg tablet 500 mg PO BID 4 days #8 tabs 04/02/24 04/03/24 Unknown ondansetron 4 mg disintegrating 4 mg PO Q12H PRN nausea and 04/02/24 04/03/24 Unknown tablet vomiting 3 days #9 tabs oxycodone 5 mg tablet 5 mg PO Q8H PRN pain #9 tabs 04/02/24 04/03/24 Unknown Active Medications Generic Name Dose Route Start Last Admin Trade Name Freq PRN Reason Stop Dose Admin Acetaminophen 650 mg 04/04/24 02:21 04/04/24 12:19 Acetaminophen 325 Mg Tab PO 05/04/24 02:20 650 mg Q4H PRN Administration pain/fever Clonidine HCl 0.2 mg 04/04/24 09:00 04/04/24 07:34 Clonidine Hcl 0.1 Mg Tab PO 05/04/24 08:59 0.2 mg QAM TAIWO Administration Lactated Ringer's 1,000 mls @ 125 mls/hr 04/04/24 02:21 04/04/24 10:49 Lr IV 04/04/24 18:20 125 mls/hr .Q8H TAIWO Administration Levothyroxine Sodium 100 mcg 04/04/24 06:30 04/04/24 04:59 Levothyroxine Sodium 100 Mcg Tablet PO 05/04/24 06:29 100 mcg DAILYBB TAIWO Administration Morphine Sulfate 2 mg 04/04/24 03:40 04/04/24 03:54 Morphine Sulfate 2 Mg/Ml Carp IV 04/18/24 03:39 2 mg Q4H PRN Administration Pain Ondansetron HCl 4 mg 04/04/24 02:21 04/04/24 03:54 Ondansetron Inj 2 Mg/Ml 2 Ml Vial IV 05/04/24 02:20 4 mg Q6H PRN Administration Nausea Past Medical History Medical History (Updated 04/04/24 @ 13:34 by Kun Masters MD) Morbid obesity with BMI of 60.0-69.9, adult Biliary colic Choledocholithiasis Obesity hypoventilation syndrome Hypertension Hypothyroidism, unspecified Depression with anxiety follows oasis Hemorrhoid Avoid straining and return if continued blood Constipation Gastroesophageal reflux disease Past Family History Family History Mother Bipolar disorder ADHD Father No problems noted. Past Surgical History Surgical History No history of previous surgery Social History Smoking Status: Never smoker Do You Dip or Chew Tobacco: No Hx Alcohol Use: No Hx Substance Use: No Physical Exam Vital Signs Last Vital Signs Temp 36.8 C 04/04/24 11:13 Pulse 80 04/04/24 11:13 Resp 18 04/04/24 11:13 BP 151/84 H 04/04/24 11:13 Pulse Ox 94 04/04/24 11:13 O2 Del Method Room Air 04/04/24 11:13 FiO2 21 04/04/24 05:09 Testing Laboratory Results 04/04/24 07:22 04/04/24 07:22 PT 10.8 Seconds (9.0-12.0) 04/04/24 07:22 INR 1.0 (0.9-1.1) 04/04/24 07:22 04/04/24 03:07 POC Ur Test NEG
[2024-04-04] MEDS ORDERED: ATROPINE SULFATE 0.1 MG/ML 10ML SYR IV PRN (13:45)
[2024-04-04] MEDS ORDERED: KETOROLAC 30 MG/ML VIAL IV PRN (13:45)
[2024-04-04] MEDS ORDERED: ONDANSETRON INJ 2 MG/ML 2 ML VIAL ONE (13:52)
[2024-04-04] MEDS ORDERED: PROPOFOL IV EMULSION 10 MG/ML 20 ML VIAL IV ONE (13:52)
[2024-04-04] MEDS ORDERED: fentaNYL citrate PF 100 MCG/2 ML VIAL ONE (13:52)
[2024-04-04] MEDS ORDERED: ROCURONIUM BROMIDE 10 MG/ML 5 ML VIAL IV ONE (13:52)
[2024-04-04] MEDS ORDERED: SUGAMMADEX SODIUM 200 MG/2 ML VIAL IV ONE (13:52)
[2024-04-04] MEDS ORDERED: SUCCINYLCHOLINE CHLORIDE 20 MG/ML 10 ML VIAL IV ONE (13:52)
[2024-04-04] MEDS: INDOMETHACIN 50 MG SUPP PR ONE (14:38)
[2024-04-04] MEDS ORDERED: LABETALOL HCL IV 5 MG/ML 20ML IV ONE (15:03)
--- NOTE | 2024-04-04 15:14 | GI REPORT ---
[facility] Patient: SHANNAN LOMELI : 2005 Sex at : Female Age: 18 Years Procedure: ERCP Date: 04/04/2024 Attending Physician: Pierce Bender MD Referring MD: Yuridia Peña Do Indications: - Abnormal liver function test - Abnormal MRCP Medications: - General Anesthesia Complications: - No immediate complications. Estimated blood loss: Minimal. Procedure: - Prior to the procedure, a History and Physical was performed, and patient medications, allergies and sensitivities were reviewed. The patient's tolerance of previous anesthesia was reviewed. - Patient identification and proposed procedure were verified prior to the procedure by the physician. The procedure was verified in the procedure room. - The risks and benefits of the procedure and the sedation options and risks were discussed with the patient. All questions were answered and informed consent was obtained. - Prophylactic Antibiotics: The patient requires prophylactic antibiotics as clinically indicated based on published guidelines for the planned ERCP. The patient received antibiotic therapy before the procedure. - The ercp scope was introduced through the mouth and advanced to the duodenum and used to cannulate the bile duct. - The ERCP was accomplished without difficulty. - The patient tolerated the procedure well. Findings: - The petrology teacher film was normal. - The bile duct was deeply cannulated [Device]. Contrast was injected. I personally interpreted the bile duct images. [Radiology Details]. The lower third of the main bile duct contained filling defect(s) thought to be a stone. The biliary tree was otherwise normal. - A biliary sphincterotomy was made with a short nose sphincterotome. There was no post-sphincterotomy bleeding. - The biliary tree was swept with a 10 mm balloon. Sludge was swept from the duct. Debris was swept from the duct. One stone was removed. No stones remained. - A final cholangiography using balloon occlusion technique was done. Contrast was then injected into the biliary tree and opacified the entire biliary tree. I personally interpreted the bile duct images. The intra-hepatic and extra-hepatic biliary duct system was normal. Impression: - The cholangiogram was normal. - A filling defect consistent with a stone was seen on the cholangiogram. - Choledocholithiasis was found. Complete removal was accomplished by biliary sphincterotomy and balloon extraction. - A biliary sphincterotomy was performed. - The biliary tree was swept and sludge and debris were found. Recommendation: - Plan for laparoscopic cholecystectomy as per surgery - Monitor liver enzymes - Diet as per primary team Procedure Code(s): - 93112, Endoscopic retrograde cholangiopancreatography (ERCP); with removal of calculi/debris from biliary/pancreatic duct(s) - 16526, Endoscopic retrograde cholangiopancreatography (ERCP); with sphincterotomy/papillotomy - 67607, Endoscopic catheterization of the biliary ductal system, radiological supervision and interpretation Diagnosis Code(s): - R79.89, Other specified abnormal findings of blood chemistry - K80.50, Calculus of bile duct without cholangitis or cholecystitis without obstruction - R93.2, Abnormal findings on diagnostic imaging of liver and biliary tract CPT(R) - 2023 copyright [employer]. All Rights Reserved. The CPT codes, CCI edits and ICD codes generated are intended as suggestions and were generated based on input data. These codes are preliminary and upon silk examiner review may be revised to meet current compliance and payer requirements. The provider is responsible for the final determination of appropriate codes, and modifiers. Pierce Bender MD This document has been electronically signed. Note Initiated:04/04/2024 Note Completed:04/04/2024 3:13 PM [email or web address]\[id number]
[2024-04-04] MEDS: PROMETHAZINE HCL 6.25 MG in SODIUM CHLORIDE 0.9% 50 ML IV PRN (15:18)
--- NOTE | 2024-04-04 15:34 | Fluoroscopy Report ---
[place] ERCP biliary ductal CLINICAL HISTORY: ERCP COMPARISON STUDY: CT 04/03/2024 FLUOROSCOPY TIME: 1 minute and 51.5 seconds FLUOROSCOPY IMAGES: 31 EXPOSURE DOSE: 35.31 mGy FINDINGS: Endoscope within the duodenum. Retrograde cannulation of the common bile duct with injectio n of contrast and subsequent balloon sweep. No significant intrahepatic biliary ductal dilation, chol edocholithiasis or biliary stricture. IMPRESSION: Fluoroscopic assistance as above. ACT 112: Negative or not required by law. Electronically signed by: Pal Mendieta M.D. 04/04/2024 3:33 PM
--- NOTE | 2024-04-04 15:45 | Anesthesiology Progress Note ---
Date of Service April 04, 2024 Anesthesia Post Procedure Vital Signs Vital Signs: Temp Pulse Pulse Pulse Resp BP BP 04/04/24 15:30 62 17 146/93 H 04/04/24 15:20 60 18 156/83 H 04/04/24 15:11 36.0 C L 88 20 171/98 H 04/04/24 11:13 36.8 C 80 18 04/04/24 08:36 04/04/24 07:53 36.7 C 67 16 04/04/24 05:09 80 21 04/04/24 02:30 04/04/24 02:18 36.6 C 85 18 04/04/24 02:06 87 18 134/75 04/04/24 02:00 87 18 04/04/24 00:00 94 H 18 04/03/24 23:02 75 04/03/24 22:00 68 18 04/03/24 20:19 79 20 04/03/24 19:08 71 04/03/24 18:25 36.7 C 86 19 182/90 H BP Pulse Ox O2 Del Method O2 Flow Rate FiO2 04/04/24 15:30 97 Nasal Cannula 2 04/04/24 15:20 96 Nasal Cannula 4 04/04/24 15:11 98 Oxymask 4 04/04/24 11:13 151/84 H 94 Room Air 04/04/24 08:36 Room Air 04/04/24 07:53 168/115 H 99 Room Air 04/04/24 05:09 95 21 04/04/24 02:30 Room Air 04/04/24 02:18 145/80 H 97 Room Air 04/04/24 02:06 94 Room Air 04/04/24 02:00 134/75 94 Room Air 04/04/24 00:00 157/98 H 97 Room Air 04/03/24 23:02 04/03/24 22:00 131/65 98 Room Air 04/03/24 20:19 127/94 98 Room Air 04/03/24 19:08 04/03/24 18:25 96 Room Air Pain Intensity Abdomen: Pain Intensity: 4 Transfer of Care Handoff Completed per policy Notes Mental Status: alert / awake / arousable Patient Amnestic to Procedure: Yes Nausea / Vomiting: adequately controlled Pain: adequately controlled Airway Patency, RR, SpO2: stable & adequate BP & HR: stable & adequate Hydration State: stable & adequate Anesthetic Complications: no major complications apparent
[2024-04-04] MEDS: CIPROFLOXACIN / D5W 400 MG/200 ML BAG IV SCH (16:06)
[2024-04-04] MEDS: PROMETHAZINE HCL INJ 25 MG/ML 1 ML VIAL ONE (16:06)
[2024-04-04] MEDS: SODIUM CHLORIDE 0.9% 50 ML BAG ONE (16:07)
[2024-04-04] MEDS ORDERED: CHLORASEPTIC (PHENOL) 1.4% SOLN 180 ML BTL MT PRN (17:00)
[2024-04-04] MEDS: PROCHLORPERAZINE 5 MG in SYRINGE 4 ML IV PRN (19:09)
[2024-04-05 07:24] LABS: Hemoglobin 13.2 g/dl (12.0-16.0); Mean Corpuscular Hemoglobin 30.4 pg (25.0-34.0); Mean Corpuscular Volume 92.2 fL (80.0-100.0); Mean Platelet Volume 10.9 fL (9.4-12.4); Platelet Count 271 K/uL (130-400); RDW Coefficient of Variation 12.6 % (11.5-14.5); RDW Standard Deviation 42.6 fL (36.4-46.3); Red Blood Count 4.34 M/uL (4.20-5.40); White Blood Count 8.14 K/ul (4.8-10.8)
[2024-04-05 08:09] LABS: Albumin Level 4.2 gm/dl (3.4-5.0); BUN Creatinine Ratio 7.8 (10-20); Bilirubin Direct 0.3 mg/dl (0-0.2); Bilirubin,Total 0.8 mg/dl (0.2-1.0); Calcium 9.9 mg/dl (8.6-10.3); Creatinine Clr Calc Pharmacy 241.1 ml/min; Potassium 3.8 mmol/L (3.5-5.1); Total Protein 7.3 gm/dl (6.0-8.3)
--- NOTE | 2024-04-05 14:46 | Hospitalist Progress Note ---
Date of Service April 05, 2024 Assessment & Plan (1) Choledocholithiasis: (2) Biliary colic: Plan: 18yo female with history of obesity, HTN, anxiety/ADHD presenting from home with recurrent right upper abdominal pain and biliary colic, abnormal AST/ALT/AP and bilirubin, general surgery and gastroenterology consulted. She underwent MRCP which showed extrahepatic biliary dilatation with smooth tapering of CBD (new finding since last MRCP 03/21), cholelithiasis, dilated GB without findings of cholecystitis, prominent portohepatic and portocaval LNs. On 04/04 she had ERCP with findings of choledocholithiasis, sphincterotomy and balloon extraction performed with sludge debris and 1 stone extracted. - low fat diet today - LFT improved today 78/157 AP95 and bilirubin normalized - no evidence of acute cholecystitis - plan per surgical team is interval lap sherry either as an outpatient or this Sunday, discussed with Dr. Castillo (3) Obesity hypoventilation syndrome: Plan: increased risk of respiratory failure with anesthesia, opioids and other sedating medications would monitor with continuous pulse oximetry postop (4) Sleep apnea: Plan: as above (5) Metabolic syndrome: Plan: noted (6) Depression with anxiety: (7) Morbid obesity with BMI of 60.0-69.9, adult: Plan: she is under evaluation for bariatric surgery with casey Fam held Plan hypothyroidism - cont levothyroxine DVT prophylaxisSCDs, avoid heparinoid for now with sphincterotomy 04/04, hold nsaids Admission and Anticipated Discharge Date Admission Date: April 04, 2024 Subjective has some sore throat and shoulder/neck soreness from procedure, however, no RUQ or R back pain and no nausea. No dyspnea Physical Exam Physical Exam: PHYSICAL EXAMINATION Last 24h vital signs reviewed, see documentation in flowsheet General: comfortable appearing, no distress, sitting up inbed awake HEENT: Normocephalic, atraumatic, pupils round and equal, sclerae anicteric, no conjunctival injection, moist mucus membranes Lungs: Normal respiratory effort. Clear to auscultation bilaterally. No RRW Heart: Regular rate and rhythm, no murmurs. No JVD Abdomen: Soft, NTND +BT no RUQ tenderness Extremities: Warm, dry, well-perfused. No extremity edema. Neuro: Alert and oriented x 4, face symmetric, moves 4 extremities well Psych: Normal affect and behavior Results & Data Results & Data Vital Signs (Past 12 Hours) Vital Signs Temp Pulse Resp BP Pulse Ox O2 Del Method 04/05/24 07:57 Room Air 04/05/24 07:42 36.5 C 91 H 16 123/80 95 Room Air 04/05/24 03:13 36.9 C 95 H 20 122/76 95 Room Air Laboratory Results 04/05/24 Range/Units 06:47 WBC 8.14 (4.8-10.8) K/ul RBC 4.34 (4.20-5.40) M/uL Hgb 13.2 (12.0-16.0) g/dl Hct 40.0 (37.0-47.0) % MCV 92.2 (80.0-100.0) fL MCH 30.4 (25.0-34.0) pg MCHC 33.0 (32.0-36.0) g/dL RDW Std Deviation 42.6 (36.4-46.3) fL RDW Coeff of Saritha 12.6 (11.5-14.5) % Plt Count 271 (130-400) K/uL MPV 10.9 (9.4-12.4) fL Sodium 141 (136-145) mmol/L Potassium 3.8 (3.5-5.1) mmol/L Chloride 107 (98-107) mmol/L Carbon Dioxide 25 (21-32) mmol/L Anion Gap 9 (3-11) BUN 5 L (6-23) mg/dl Creatinine 0.64 (0.6-1.2) mg/dl Est Cr Clr Drug Dosing 241.1 ml/min eGFR 130.48 BUN/Creatinine Ratio 7.8 L (10-20) Glucose 100 H (70-99(Fasting)) mg/dl Calcium 9.9 (8.6-10.3) mg/dl Total Bilirubin 0.8 D (0.2-1.0) mg/dl Direct Bilirubin 0.3 H (0-0.2) mg/dl AST 78 H (13-39) U/L ALT 157 H (7-52) U/L Alkaline Phosphatase 95 (34-104) U/L Total Protein 7.3 (6.0-8.3) gm/dl Albumin 4.2 (3.4-5.0) gm/dl PG Care Time/CCT Total # of Minutes Spent Total Time Spent with Patient: Total time spent is greater than 50% in coordination of care (as documented) at patient's floor/unit and/or counseling patient: Coding Level of Care Code 36877 SUB INP/OBS CARE 2/35MIN Diagnoses Choledocholithiasis K80.50 Biliary colic K80.50 Obesity hypoventilation syndrome E66.2 Sleep apnea G47.30 Metabolic syndrome E88.81 Depression with anxiety F41.8 Morbid obesity with BMI of 60.0-69.9, adult E66.01; Z68.44
[2024-04-05] MEDS: CYCLOBENZAPRINE HCL 5 MG TAB PO PRN (17:43)
[2024-04-05] MEDS: traMADol HCL 50 MG TABLET PO PRN (19:31)
[2024-04-05] MEDS: cloNIDine HCL 0.1 MG TAB PO SCH (19:31)
[2024-04-06] MEDS: ACETAMINOPHEN 500 MG TAB PO PRN (03:17)
--- NOTE | 2024-04-06 10:05 | Communication Note ---
Date of Service: April 06, 2024 Patient would like to stay for cholecystectomy tomorrow I have discussed details of the procedure with her. Consent will be obtained in the am. She is currently booked for a robotic/laparoscopic cholecystectomy for tomorrow. NPO after BRAYDEN
--- NOTE | 2024-04-06 13:55 | Hospitalist Progress Note ---
Date of Service April 06, 2024 Assessment & Plan (1) Choledocholithiasis: Plan: 18yo female with history of obesity, HTN, anxiety/ADHD presenting from home with recurrent right upper abdominal pain and biliary colic, abnormal AST/ALT/AP and bilirubin, general surgery and gastroenterology consulted. She underwent MRCP which showed extrahepatic biliary dilatation with smooth tapering of CBD (new finding since last MRCP 03/21), cholelithiasis, dilated GB without findings of cholecystitis, prominent portohepatic and portocaval LNs. On 04/04 she had ERCP with findings of choledocholithiasis, sphincterotomy and balloon extraction performed with sludge debris and 1 stone extracted. - low fat diet today - AM CBC CMP - no evidence of acute cholecystitis - plan per surgical team is interval lap sherry hopefully tomorrow, n.p.o. after midnight (2) Obesity hypoventilation syndrome: Plan: increased risk of respiratory failure with anesthesia, opioids and other sedating medications would monitor with continuous pulse oximetry postop (3) Sleep apnea: Plan: as above (4) Metabolic syndrome: Plan: noted (5) Depression with anxiety: (6) Morbid obesity with BMI of 60.0-69.9, adult: Plan: she is under evaluation for bariatric surgery with casey Fam held Plan hypothyroidism - cont levothyroxine DVT prophylaxisSCDs, avoid heparinoid for now with sphincterotomy 04/04, hold nsaids. encouraged ambulation Admission and Anticipated Discharge Date Admission Date: April 04, 2024 Subjective neck and shoulders still sore following procedure Sunday, mild sore throat relieved with drinking fluids no right upper quadrant pain, no nausea, tolerating low fat diet well Physical Exam Physical Exam: PHYSICAL EXAMINATION Last 24h vital signs reviewed, see documentation in flowsheet General: awake and alert sitting on bed exam unchanged 04/06 HEENT: Normocephalic, atraumatic, pupils round and equal, sclerae anicteric, no conjunctival injection, moist mucus membranes Lungs: Normal respiratory effort. Clear to auscultation bilaterally. No RRW Heart: Regular rate and rhythm, no murmurs. No JVD Abdomen: Soft, NTND +BT no RUQ tenderness Extremities: Warm, dry, well-perfused. No extremity edema. Neuro: Alert and oriented x 4, face symmetric, moves 4 extremities well Psych: Normal affect and behavior Results & Data Results & Data Vital Signs (Past 12 Hours) Vital Signs Temp Pulse Resp BP Pulse Ox O2 Del Method 04/06/24 08:02 36.7 C 81 18 169/115 H 98 Room Air PG Care Time/CCT Total # of Minutes Spent Total Time Spent with Patient: Total time spent is greater than 50% in coordination of care (as documented) at patient's floor/unit and/or counseling patient: Coding Level of Care Code 21144 SUB INP/OBS CARE 06/14MIN Diagnoses Choledocholithiasis K80.50 Obesity hypoventilation syndrome E66.2 Sleep apnea G47.30 Metabolic syndrome E88.81 Depression with anxiety F41.8 Morbid obesity with BMI of 60.0-69.9, adult E66.01; Z68.44
[2024-04-07 07:22] LABS: Hematocrit (blood only) 39.6 % (37.0-47.0); Hemoglobin 12.8 g/dl (12.0-16.0); Mean Corpuscular Hemoglobin 30.4 pg (25.0-34.0); Mean Corpuscular Hgb Conc 32.3 g/dL (32.0-36.0); Mean Corpuscular Volume 94.1 fL (80.0-100.0); Mean Platelet Volume 10.8 fL (9.4-12.4); Platelet Count 230 K/uL (130-400); RDW Standard Deviation 44.6 fL (36.4-46.3); Red Blood Count 4.21 M/uL (4.20-5.40); White Blood Count 6.59 K/ul (4.8-10.8)
[2024-04-07 07:39] LABS: Albumin Globulin Ratio 1.2 (0.9-2); Albumin Level 3.6 gm/dl (3.4-5.0); BUN Creatinine Ratio 11.4 (10-20); Bilirubin,Total 0.5 mg/dl (0.2-1.0); Calcium 9.4 mg/dl (8.6-10.3); Creatinine Clr Calc Pharmacy 220.4 ml/min; Globulin 2.9 gm/dl (2.5-4.0); Potassium 3.9 mmol/L (3.5-5.1); Total Protein 6.5 gm/dl (6.0-8.3)
--- NOTE | 2024-04-07 11:43 | Surgery Progress Note ---
<Statement entered by Kasey Castillo DO - 04/07/24 12:54> The patient will be taken to the OR today for robotic cholecystectomy. The consent has been obtained and is on the chart. Date of Service April 07, 2024 Assessment & Plan (1) Choledocholithiasis: Plan: Pt here w/ abdominal pain Found to have choledocholithiasis. GI performed ERCP on 04/04 Pt opted to remain admitted over the wknd for robo/lap sherry today WBC 6, LFTs down trending. Tb 0.5, AST 66, ALT 114 Planning on robo cholecystectomy today; consent signed and questions answered Admission and Anticipated Discharge Date Admission Date: April 06, 2024 Subjective Patient feeling okay. Nervous about surgery. No obvious complaints. Physical Exam Physical Exam: awake/alert, no distress Gastrointestinal (Abdomen): Percussion/Palpation: abdomen soft Results & Data Vital Signs (Past 12 Hours) Vital Signs Temp Pulse Resp BP Pulse Ox O2 Del Method 04/07/24 07:37 98.1 F 71 18 169/101 H 96 Room Air 04/07/24 07:15 Room Air PG Care Time/CCT Total # of Minutes Spent Total Time Spent with Patient: Total time spent is greater than 50% in coordination of care (as documented) at patient's floor/unit and/or counseling patient: Coding Level of Care Code 85085 SUB INP/OBS CARE 125MIN Diagnoses Choledocholithiasis K80.50
--- NOTE | 2024-04-07 12:43 | Anesthesiology Consultation ---
Date of Service April 07, 2024 Assessment & Plan Chart Review Chart Review: Acceptable Risk for Surgery Consults Requested none History Surgery Operation Date: 04/04/24 10:20 Proposed Procedures p Endoscopic Retrograde Cholangiopancreatogram - Pierce Bender MD Operation Date: 04/07/24 09:35 Proposed Procedures p Robotic Laparoscopic Cholecystectomy - Kasey Castillo DO Height/Weight Height: 5 ft 7 in Weight: 177.6 kg Allergies Allergy/AdvReac Type Severity Reaction Status Date / Time No Known Allergies Allergy Verified 04/07/24 12:26 Medications Home Medications Medication Instructions Recorded Confirmed Last Taken apple cider vinegar 500 mg tablet 500 mg PO DAILY 07/23/20 04/03/24 03/19/24 clonidine HCl 0.2 mg tablet 0.2 mg PO DAILY 03/20/24 04/03/24 03/19/24 ergocalciferol (vitamin D2) 1,250 50,000 unit PO WK 03/20/24 04/03/24 03/17/24 mcg (50,000 unit) capsule ibuprofen 200 mg tablet 400 mg PO Q6H PRN Pain 03/20/24 04/03/24 Unknown levothyroxine 100 mcg tablet 100 mcg PO DAILY 03/20/24 04/03/24 03/19/24 multivitamin 1 tab PO DAILY 03/20/24 04/03/24 03/19/24 norethindrone (contraceptive) 0.35 0.35 mg PO DAILY 03/20/24 04/03/24 03/19/24 mg tablet semaglutide (weight loss) 0.5 0.5 mg subcut WK 03/20/24 04/03/24 03/13/24 mg/0.5 mL subcutaneous pen injector (Wegovy) cephalexin 500 mg tablet 500 mg PO BID 4 days #8 tabs 04/02/24 04/03/24 Unknown ondansetron 4 mg disintegrating 4 mg PO Q12H PRN nausea and 04/02/24 04/03/24 Unknown tablet vomiting 3 days #9 tabs oxycodone 5 mg tablet 5 mg PO Q8H PRN pain #9 tabs 04/02/24 04/03/24 Unknown Active Medications Generic Name Dose Route Start Last Admin Trade Name Freq PRN Reason Stop Dose Admin Acetaminophen 1,000 mg 04/05/24 23:14 04/06/24 03:17 Acetaminophen 500 Mg Tab PO 05/04/24 02:20 1,000 mg Q8H PRN Administration pain/fever Clonidine HCl 0.2 mg 04/05/24 21:00 04/06/24 19:19 Clonidine Hcl 0.1 Mg Tab PO 05/05/24 20:59 0.2 mg HS TAIWO Administration Cyclobenzaprine HCl 5 mg 04/05/24 16:01 04/06/24 12:09 Cyclobenzaprine Hcl 5 Mg Tab PO 05/05/24 20:59 5 mg TID PRN Administration muscle pain Prochlorperazine 5 mg/ Syringe 5 mls @ 5 mls/min 04/04/24 17:00 04/04/24 19:09 IV 05/04/24 16:59 5 mls/min Q6H PRN Administration Nausea And Vomiting Levothyroxine Sodium 100 mcg 04/04/24 06:30 04/07/24 05:14 Levothyroxine Sodium 100 Mcg Tablet PO 05/04/24 06:29 100 mcg DAILYBB TAIWO Administration Ondansetron HCl 4 mg 04/04/24 02:21 04/04/24 03:54 Ondansetron Inj 2 Mg/Ml 2 Ml Vial IV 05/04/24 02:20 4 mg Q6H PRN Administration Nausea Tramadol HCl 50 mg 04/05/24 16:01 04/06/24 12:08 Tramadol Hcl 50 Mg Tablet PO 05/05/24 16:00 50 mg Q4H PRN Administration Pain NPO Date Last Intake of Fluids: 04/06/24 Time Last Intake of Fluids: 23:00 Date Last Intake of Solids: 04/06/24 Time Last Intake of Solids: 18:00 Past Medical History Medical History Morbid obesity with BMI of 60.0-69.9, adult Biliary colic Obesity hypoventilation syndrome Hypertension Hypothyroidism, unspecified Depression with anxiety follows oasis Hemorrhoid Avoid straining and return if continued blood Constipation Gastroesophageal reflux disease Past Family History Family History Mother Bipolar disorder ADHD Father No problems noted. Past Surgical History Surgical History No history of previous surgery Social History Smoking Status: Never smoker Do You Dip or Chew Tobacco: No Hx Alcohol Use: No Hx Substance Use: No Physical Exam Vital Signs Last Vital Signs Temp 36.9 C 04/07/24 12:19 Pulse 85 04/07/24 12:19 Resp 20 04/07/24 12:19 BP 146/105 H 04/07/24 12:19 Pulse Ox 96 04/07/24 12:19 O2 Del Method Room Air 04/07/24 12:19 O2 Flow Rate 2 04/04/24 16:24 FiO2 21 04/04/24 05:09 Testing Laboratory Results 04/07/24 06:55 04/07/24 06:55 PT 10.8 Seconds (9.0-12.0) 04/04/24 07:22 INR 1.0 (0.9-1.1) 04/04/24 07:22 04/04/24 03:07 POC Ur Test NEG
[2024-04-07] MEDS ORDERED: MIDAZOLAM HCL 1 MG/ML 2ML VIAL ONE (13:01)
[2024-04-07] MEDS ORDERED: DEXAMETHASONE SOD INJ 4 MG/ML VIAL ONE (13:01)
[2024-04-07] MEDS ORDERED: PROPOFOL IV EMULSION 10 MG/ML 20 ML VIAL IV ONE ×2 (13:01→15:28)
[2024-04-07] MEDS ORDERED: fentaNYL citrate PF 100 MCG/2 ML VIAL ONE ×2 (13:01→15:09)
[2024-04-07] MEDS ORDERED: LIDOCAINE 2% 2 ML VIAL/AMP(20MG/ML) INFIL ONE ×2 (13:01→15:27)
[2024-04-07] MEDS ORDERED: ONDANSETRON INJ 2 MG/ML 2 ML VIAL ONE (13:01)
[2024-04-07] MEDS ORDERED: ROCURONIUM BROMIDE 10 MG/ML 5 ML VIAL IV ONE ×2 (13:03→15:06)
[2024-04-07] MEDS ORDERED: SUCCINYLCHOLINE CHLORIDE 20 MG/ML 10 ML VIAL IV ONE ×2 (13:03→16:08)
[2024-04-07] MEDS: INDOCYANINE GREEN 25 MG VIAL INJ ONE (13:11)
--- NOTE | 2024-04-07 13:20 | History & Physical Bridge Note ---
Date of Service April 07, 2024 History & Physical Bridge Note I have examined the patient, reviewed the History & Physical and in the interval since the performance of the History & Physical I have noted the following changes of clinical significance: no changes noted The patient was seen and examined, informed of change of surgeon. Change of provider form signed and witnessed. Cholelithiasis with choledocholithiasis status post ERCP. plan for robotic assisted laparoscopic cholecystectomy with possible cholangiogram risks discussed to include but not limited to bleeding, infection, retained stone, bile leak, open surgery, damage to surrounding structures including bile duct, need for future or more extensive surgery, failure to treat symptoms, and risks of anesthesia. Likely discharge tomorrow Wound care instructions, activity striction's, return precautions given.
--- NOTE | 2024-04-07 14:23 | Hospitalist Progress Note ---
Date of Service April 07, 2024 Assessment & Plan (1) Choledocholithiasis: Plan: 18yo female with history of obesity, HTN, anxiety/ADHD presenting from home with recurrent right upper abdominal pain and biliary colic, abnormal AST/ALT/AP and bilirubin, general surgery and gastroenterology consulted. She underwent MRCP which showed extrahepatic biliary dilatation with smooth tapering of CBD (new finding since last MRCP 03/21), cholelithiasis, dilated GB without findings of cholecystitis, prominent portohepatic and portocaval LNs. On 04/04 she had ERCP with findings of choledocholithiasis, sphincterotomy and balloon extraction performed with sludge debris and 1 stone extracted. - no evidence of acute cholecystitis - CBC CMP reviewed - AST/ALT continue to trend downward, mildly elevated. Bili and alk phos normal. WBC 6.5 - robotic lap sherry today - please monitor with continuous pulse oximetry postop because of increased risk of respiratory failure - postop IS - likely home tomorrow (2) Obesity hypoventilation syndrome: Plan: increased risk of respiratory failure with anesthesia, opioids and other sedating medications would monitor with continuous pulse oximetry postop (3) Sleep apnea: Plan: as above (4) Metabolic syndrome: Plan: noted (5) Depression with anxiety: (6) Morbid obesity with BMI of 60.0-69.9, adult: Plan: she is under evaluation for bariatric surgery with casey Fam held Plan hypothyroidism - cont levothyroxine DVT prophylaxisSCDs, avoid heparinoid for now with sphincterotomy 04/04, hold nsaids. encouraged ambulation Admission and Anticipated Discharge Date Admission Date: April 06, 2024 Subjective Anxious about surgery but otherwise doing ok No RUQ pain, has been tolerating meals well Throat and neck/shoulders soreness resolved Physical Exam 2 Physical Exam: PHYSICAL EXAMINATION Last 24h vital signs reviewed, see documentation in flowsheet General: awake and alert sitting on bed exam unchanged 04/07 HEENT: Normocephalic, atraumatic, pupils round and equal, sclerae anicteric, no conjunctival injection, moist mucus membranes Lungs: Normal respiratory effort. Clear to auscultation bilaterally. No RRW Heart: Regular rate and rhythm, no murmurs. No JVD Abdomen: Soft, NTND +BT no RUQ tenderness Extremities: Warm, dry, well-perfused. No extremity edema. Neuro: Alert and oriented x 4, face symmetric, moves 4 extremities well Psych: Normal affect and behavior Results & Data Results & Data Vital Signs (Past 12 Hours) Vital Signs Temp Pulse Resp BP Pulse Ox O2 Del Method 04/07/24 12:19 36.9 C 85 20 146/105 H 96 Room Air 04/07/24 07:37 36.7 C 71 18 169/101 H 96 Room Air 04/07/24 07:15 Room Air Laboratory Results 04/07/24 06:55 04/07/24 06:55 AST 66, ALT 114, bili 0.5 PG Care Time/CCT Total # of Minutes Spent Total Time Spent with Patient: Total time spent is greater than 50% in coordination of care (as documented) at patient's floor/unit and/or counseling patient: Coding Level of Care Code 30621 SUB INP/OBS CARE 2/35MIN Diagnoses Choledocholithiasis K80.50 Obesity hypoventilation syndrome E66.2 Sleep apnea G47.30 Metabolic syndrome E88.81 Depression with anxiety F41.8 Morbid obesity with BMI of 60.0-69.9, adult E66.01; Z68.44
[2024-04-07] MEDS ORDERED: ePHEDrine sulfate 50 MG/ML AMP IV PRN (14:58)
[2024-04-07] MEDS ORDERED: PROMETHAZINE HCL 6.25 MG in SODIUM CHLORIDE 0.9% 50 ML IV PRN (14:58)
[2024-04-07] MEDS ORDERED: ONDANSETRON INJ 2 MG/ML 2 ML VIAL IV PRN (14:58)
[2024-04-07] MEDS ORDERED: ATROPINE SULFATE 0.1 MG/ML 10ML SYR IV PRN (14:58)
[2024-04-07] MEDS: ceFAZolin 3000MG 3,000 MG/72.5 ML BAG IV SCH (15:00)
[2024-04-07] MEDS ORDERED: DexMEDEtomidine HCL IV 100 MCG/ML VIAL IV ONE (15:27)
[2024-04-07] MEDS ORDERED: SUGAMMADEX SODIUM 200 MG/2 ML VIAL IV ONE (15:51)
[2024-04-07] MEDS ORDERED: ALBUTEROL HFA 8 GM INHALER INH ONE (16:00)
--- NOTE | 2024-04-07 16:15 | Operative Report ---
PG Post Operative Report Pre & Post Diagnosis Operation Date: 04/07/24 09:35 Pre-Op Diagnosis: Cholelithiasis Post-Op Diagnosis: Cholelithiasis I identified the patient and participated in the time-out.: Yes Procedure Operation Date: 04/07/24 09:35 Actual Procedures p Robotic Laparoscopic Cholecystectomy(Not Applicable) - Len Tillman DO, FACS Surgeon Len Tillman DO, FACS Probation And Parole Officer Prema Olivas Estimated Blood Loss 5 Findings Consistent with Post-Op Diagnosis Mild chronic cholecystitis. Critical view of safety obtained, cystic duct and artery doubly clipped and divided. Small spillage of bile and stones, irrigated and retrieved. Specimens Gallbladder Anesthesia Type General Complications none Disposition Accompanied Patient To Recovery: No Disposition: Recovery Room Indications 18-year-old morbidly obese female presented with signs and symptoms of choledocholithiasis status post ERCP, plan for robotic cholecystectomy. The risks of the procedure were discussed, all questions were answered, and the patient agreed to proceed with surgery as planned. Description of Procedure The patient was properly identified, consented, and taken to the operating room where she was placed in the supine position. 2.5 mg of indocyanine green were administered IV approximately 45 min prior to the surgery. General endotracheal anesthesia was induced. SCDs and a safety belt were placed. Preoperative antibiotics were administered. The patient's abdomen was prepped and draped in the standard sterile fashion. A surgical timeout was performed and all parties were in agreement that this was the correct patient and procedure to be performed and we continued as planned. An incision was made just above the umbilicus and to the left of midline. Veress needle was inserted and saline drop test confirmed entry to the abdomen. The abdomen was insufflated with carbon dioxide which the patient tolerated incident. Veress needle was removed and the abdomen is entered using the Optiview technique and a 5 mm camera. The introducer was removed and the abdomen inspected. No damage from initial trocar placement or Veress needle placement was identified. There were no significant abnormalities to the 4 quadrants of the abdomen. 8 mm robotic ports were then placed on the left and right. An additional 5 mm multimedia assistant port was placed in the lateral right subcostal position. The patient was placed in reverse Trendelenburg position and rotated towards the left. The robot was then docked and the camera and robo tic instruments were inserted. The gallbladder was mildly and chronically inflamed. The dome of the gallbladder was grasped by the multimedia assistant and retracted towards the left upper quadrant and the infundibulum was retracted toward the right lower quadrant revealing Calot's triangle. Peritoneal attachments were taken down with electrocautery and blunt dissection. The cystic duct and artery were ci rcumferentially dissected. A window of safety was obtained showing the cystic duct entering the gallbladder with no aberrant structures noted. We were able to identify the cystic duct utilizing the ICG. The cystic duct and artery were doubly clipped and divided. The gallbladder was then lifted off the gallbladder fossa with electrocautery. There was a small amount of spillage of bile and stones during this portion of procedure. Right upper quadrant was irrigated and the stones were retrieved. The right upper quadrant was irrigated and hemostasis was found to be good. The gallbladder was placed in an Endo Catch bag and removed through the one of the port sites. The extraction site fascia was closed with an 0 Vicryl suture utilizing the Win-Isha device. The instruments were removed and the robot was undocked. The trochars were removed and the abdomen was allowed to collapse. The skin of all ports was closed with 4-0 Monocryl subcuticular sutures. Dermabond was placed over the wounds. The patient was extubated in the operating room and taken to the PACU where she recovered without apparent incident. All sponge, instrument and needle counts were correct at the conclusion of the procedure. The patient tolerated the procedure well. The physician's multimedia assistant was present and scrubbed for the entirety of the case and was essential in positioning the patient, prepping and draping, retraction and exposure, driving the laparoscope, exchange of the robotic instruments removal of the gallbladder, closure of the incisions, and placement of the dressings. I attest to the content of the Intraoperative Record and any orders documented therein. Any exceptions are noted below.
[2024-04-07] MEDS: BUPIVACAINE 0.5 % 5 MG/1 ML MPF 30ML VIAL ONE (16:17)
[2024-04-07] MEDS: fentaNYL citrate PF 100 MCG/2 ML VIAL IV PRN (16:35)
[2024-04-07] MEDS: HYDROmorphone INJ 2 MG/ML SYR/VIAL IV PRN (16:45)
--- NOTE | 2024-04-07 17:14 | Anesthesiology Progress Note ---
Date of Service April 07, 2024 Anesthesia Post Procedure Vital Signs Vital Signs: Temp Pulse Pulse Resp BP Pulse Ox O2 Del Method 04/07/24 17:00 87 21 163/101 H 94 Nasal Cannula 04/07/24 16:50 82 21 171/101 H 95 Nasal Cannula 04/07/24 16:40 82 15 158/112 H 94 Nasal Cannula 04/07/24 16:34 36.4 C L 79 18 178/95 H 93 Oxymask 04/07/24 12:19 36.9 C 85 20 146/105 H 96 Room Air 04/07/24 07:37 36.7 C 71 18 169/101 H 96 Room Air 04/07/24 07:15 Room Air 04/06/24 19:23 36.4 C L 78 16 143/89 H 96 Room Air 04/06/24 19:19 Room Air, CPAP O2 Flow Rate 04/07/24 17:00 4 04/07/24 16:50 4 04/07/24 16:40 4 04/07/24 16:34 6 04/07/24 12:19 04/07/24 07:37 04/07/24 07:15 04/06/24 19:23 04/06/24 19:19 Pain Intensity Abdomen: Pain Intensity: 9 Bilateral Back: Pain Intensity: 0 Bilateral Shoulder: Pain Intensity: 4 Posterior Neck: Pain Intensity: 0 Transfer of Care Handoff Completed per policy Notes Mental Status: alert / awake / arousable Patient Amnestic to Procedure: Yes Nausea / Vomiting: adequately controlled Pain: adequately controlled Airway Patency, RR, SpO2: stable & adequate BP & HR: stable & adequate Hydration State: stable & adequate Anesthetic Complications: no major complications apparent
[2024-04-07] MEDS ORDERED: MoRPHine SULFATE 2 MG/ML CARP IV PRN (17:25)
[2024-04-07] MEDS ORDERED: oxyCODONE HCL IR 5 MG TAB (IMMEDIATE RELEASE) PO PRN (17:25)
[2024-04-07] MEDS: LACTATED RINGER'S 1,000 ML IV SCH (17:31)
[2024-04-07] MEDS: MoRPHine SULFATE 4 MG/ML 1 ML CARP\\VIAL IV PRN (17:35)
[2024-04-07] MEDS: oxyCODONE HCL IR 5 MG TAB (IMMEDIATE RELEASE) PO PRN (17:55)
[2024-04-08 06:17] LABS: Basophils # (auto) 0.01 K/uL (0.00-0.20); Basophils % (auto) 0.1 %; Hematocrit (blood only) 39.6 % (37.0-47.0); Hemoglobin 13.4 g/dl (12.0-16.0); Immature Granulocytes # (auto) 0.04 K/uL (0.01-0.20); Immature Granulocytes % (auto) 0.4 %; Lymphocytes # (auto) 0.92 K/uL (1.20-3.40); Lymphocytes % (auto) 9.7 %; Mean Corpuscular Hemoglobin 31.1 pg (25.0-34.0); Mean Corpuscular Hgb Conc 33.8 g/dL (32.0-36.0); Mean Corpuscular Volume 91.9 fL (80.0-100.0); Mean Platelet Volume 10.8 fL (9.4-12.4); Monocytes # (auto) 0.51 K/uL (0.11-0.59); Monocytes % (auto) 5.4 %; Neutrophils # (auto) 7.98 K/uL (1.40-6.50); Neutrophils % (auto) 84.4 %; Platelet Count 284 K/uL (130-400); RDW Coefficient of Variation 12.5 % (11.5-14.5); RDW Standard Deviation 42.1 fL (36.4-46.3); Red Blood Count 4.31 M/uL (4.20-5.40); White Blood Count 9.46 K/ul (4.8-10.8)
[2024-04-08 06:46] LABS: Albumin Globulin Ratio 1.2 (0.9-2); Albumin Level 4.1 gm/dl (3.4-5.0); BUN Creatinine Ratio 10.6 (10-20); Bilirubin,Total 0.6 mg/dl (0.2-1.0); Creatinine Clr Calc Pharmacy 233.8 ml/min; Globulin 3.3 gm/dl (2.5-4.0); Potassium 4.3 mmol/L (3.5-5.1); Total Protein 7.4 gm/dl (6.0-8.3)
[2024-04-08 07:20] VITALS: BP 140/81; TEMP 98.1
[2024-04-08] MEDS: ACETAMINOPHEN 500 MG TAB PO SCH (07:40)
--- NOTE | 2024-04-08 07:48 | Surgery Progress Note ---
Date of Service April 08, 2024 Assessment & Plan (1) Choledocholithiasis: Plan: Pt here with abdominal pain and elevated LFTs. Found to have + choledocholithiasis s/p ERCP with GI Now POD#1 robotic cholecystectomy WBC 9.4, Hbg 13.4, LFTs tb 0.6, AST 57, ALT 114, Alkp81 Expected post op abd discomfort, worse at extraction site. recommended prn ice and or splint pillow as needed Advance diet this AM If pain manageable and patient tolerates some diet we are okay with discharge to home today Dispo instructions reviewed, f/u in the office with dr. portillo in 2 weeks Admission and Anticipated Discharge Date Admission Date: April 06, 2024 Supervising Physician Co-Signing Physician Notes Patient seen and examined, labs and imaging reviewed, agree with above. POD #1 robotic cholecystectomy, doing well. Little sore extraction site. Tolerating diet. On exam afebrile with stable vitals. Abdomen soft, appropriately tender to palpation. Incisions without infection. Labs unremarkable. Plan for discharge today. Follow-up in 2 weeks in general surgery clinic. Wound care instructions, activity restrictions, and return precautions given. Subjective Patient feeling okay this AM. Some nausea overnight that is now resolved, no emesis. Abdominal pain controlled, but does report worsening pain at extraction site and worse pain with movement. Physical Exam Physical Exam: awake/alert, no distress Respiratory: on supplemental O2 Gastrointestinal (Abdomen): Inspection/Auscultation: + abdominal surgical incision (c/d/i, no signs of infection); abdomen not distended Percussion/Palpation: + abdomen tender (expected jyoti incisional discomfort, worse at extraction site) and abdomen soft Results & Data Vital Signs (Past 12 Hours) Vital Signs Temp Pulse Resp BP Pulse Ox Pulse Ox O2 Del Method 04/08/24 07:19 98.1 F 86 16 140/81 94 Nasal Cannula 04/08/24 03:09 97.9 F 93 H 16 141/83 H 96 Nasal Cannula 04/07/24 22:56 97.9 F 81 16 143/87 H 96 Nasal Cannula 04/07/24 20:37 Room Air, CPAP 04/07/24 20:37 96 O2 Del Method O2 Flow Rate O2 Flow Rate 04/08/24 07:19 1 04/08/24 03:09 2 04/07/24 22:56 2 04/07/24 20:37 04/07/24 20:37 Nasal Cannula 2 PG Care Time/CCT Total # of Minutes Spent Total Time Spent with Patient: Total time spent is greater than 50% in coordination of care (as documented) at patient's floor/unit and/or counseling patient: Coding Level of Care Code 15082 Post Operative Follow-Up Diagnoses Choledocholithiasis K80.50
[2024-04-08 11:43] VITALS: PULSE 78; RESP 19; O2SAT 95
--- NOTE | 2024-04-08 12:02 | Discharge Summary ---
Discharge Summary Date of Service April 08, 2024 Principal Dx & Hospital Course #1 = Principal Diagnosis (1) Choledocholithiasis: 18yo female with history of obesity, HTN, anxiety/ADHD presenting from home with recurrent right upper abdominal pain and biliary colic, abnormal AST/ALT/AP and elevated bilirubin, general surgery and gastroenterology consulted. She underwent MRCP which showed extrahepatic biliary dilatation with smooth tapering of CBD (new finding since last MRCP 03/21), cholelithiasis, dilated GB without findings of cholecystitis, prominent portohepatic and portocaval LNs. On 04/04 she had ERCP with findings of choledocholithiasis, sphincterotomy and balloon extraction performed with sludge debris and 1 stone extracted. no evidence of acute cholecystitis. underwent robotic lap sherry 04/[address] Tillman, uneventful recovery thus far. - CMP reviewed today AST/ALT continue to trend downward, mildly elevated, component of MAFLD likely. Bili and alk phos normal. - doing well postop today eating and drinking and able to ambulate, discharged home and follow-up with Dr. Tillman (2) Obesity hypoventilation syndrome: increased risk of respiratory failure with anesthesia, opioids and other s edating medications did well postoperatively no complications (3) Sleep apnea: as above (4) Metabolic syndrome: noted (5) Depression with anxiety: (6) Morbid obesity with BMI of 60.0-69.9, adult: she is under evaluation for bariatric surgery with caesy Fam resumed Plan hypothyroidism - cont levothyroxine Notes For Next Care Provider Medication Changes From Visit as needed oxycodone added Admission HPI Per Admitting Provider Sarah Sosa is a 18 y/o F with a past medical history of obesity, HTN, OHS, arriving to the ED after being discharged with pain medication yesterday. Patient reports that she was without pain when she left the ED yesterday, but later in the night her upper abdominal pain started again, around a 7/10 in intensity. Patient took Oxycodone 5mg around midnight today without relief in her symptoms. Patient took another oxycodone 5mg around 11am today but pain remained constant at a 7/10. Patient took two Tylenol pills around 3pm and was without pain for approximately 30 minutes and then reports that her pain became unbearable 10/10 in intensity before arriving at the ED. Patient reports that her epigastric pain has been similar to her ED visit yesterday, but also had new pain between her shoulder blades. Patient reports that she is on month 5/6 of a weight loss program and plans to meet with her bariatric surgeon to discuss potential bariatric surgery on 04/08. The patient was seen 2 weeks ago with similar abdominal pain and had a MRCP done that was positive for cholelithiasis and gallbladder distention but was otherwise within normal limits. Patient reports being without pain for approximately 2 weeks until her ED visit yesterday. In the ED today, patient received 4mg IV morphine sulfate and is now without any pain or symptoms. Patient has not had any nausea or vomiting throughout her ongoing abdominal pain. Patient denies pleuritic chest pain, SOB, cough, wheeze, palpitations, or chest tightness/pressure. Discharge Exam PHYSICAL EXAMINATION Last 24h vital signs reviewed, see documentation in flowsheet General: awake and alert eating eggs and toast looks good exam unchanged 04/08 HEENT: Normocephalic, atraumatic, pupils round and equal, sclerae anicteric, no conjunctival injection, moist mucus membranes Lungs: Normal respiratory effort. Clear to auscultation bilaterally. No RRW Heart: Regular rate and rhythm, no murmurs. No JVD Abdomen: Soft, nondistended bowel tones present, laparotomy incisions well opposed covered with Steri-Strips Extremities: Warm, dry, well-perfused. No extremity edema. Neuro: Alert and oriented x 4, face symmetric, moves 4 extremities well Psych: Normal affect and behavior Discharge Plan Discharge Items Patient Disposition: Home - Self-Care Reason For Visit: ABD PAIN Discharge Diagnosis: robotic cholecystectomy Activity: Per Instructions section Lifting: No more than 10 pounds Bathing Comment: may shower; no soaking in tubs/pools x 2 weeks Exercise/Sports: Wait until after follow-up appointment Driving/Machine Use: no driving while taking narcotics for pain Non-emergency contact: Surgeon Call non-emergency contact if: you have any medication questions, your symptoms worsen, you have a fever, your temperature is above 101.5, your wound has increased redness, your wound has increased drainage and your wound pain has increased Follow-up/Referrals: Len Tillman DO, FACS [Physician] - 04/22/24 9:15 am (please call to schedule follow up in clinic within 2 weeks) Khoa Cruz MD [Primary Care Provider] - Diet: Regular Addtl Attending Provider Instructions: SPECIAL CARE INSTRUCTIONS: * You have skin glue over your incisions called dermabond. you may shower with this on. It will tend to dissolve and fall off within a couple weeks. Do not pick at the skin glue * You may shower . NO soaking in pools or baths for 2 weeks * No lifting greater than 10lbs. No strenuous exercise until cleared by surgeon. Light walking is accepted. * No driving while taking narcotic pain medication; wait at least 3 days * No drinking alcohol while taking narcotic pain medication * May use Tylenol over the counter for pain as tolerated. Do not exceed 3grams of Tylenol per 24 hours * Expect some swelling and bruising. * Diet- you may resume your regular diet Call your doctor if: * Temperature above 101 degrees, nausea/vomiting, fever/chills * Pain not relieved by pain medicine ordered * There is increased drainage or redness from any incision * You have any unanswered questions or concerns [phone]. FOLLOW UP VISIT: If not already scheduled, please call the office for a follow-up visit. Office Pending Studies at Discharge: Yes Studies:: surgical pathology Stand-Alone Forms: My [facility], Pain - Opioid Pain Management, Smoking Cessation Medications and DC Order Prescriptions: New oxycodone 5 mg tablet 5 - 10 mg PO .[id number] PRN (Reason: pain, for initial therapy, max 6 tabs per day) Qty: 15 0RF Continued apple cider vinegar 500 mg tablet 500 mg PO DAILY multivitamin Tablet 1 tab PO DAILY levothyroxine 100 mcg tablet 100 mcg PO DAILY clonidine HCl 0.2 mg tablet 0.2 mg PO DAILY ibuprofen 200 mg Tablet 400 mg PO Q6H PRN (Reason: Pain) ergocalciferol (vitamin D2) 1,250 mcg (50,000 unit) capsule 50,000 unit PO WK Rx Instructions: Mondays norethindrone (contraceptive) 0.35 mg tablet 0.35 mg PO DAILY Wegovy 0.5 mg/0.5 mL pen injector 0.5 mg SUBCUT WK Rx Instructions: ondansetron 4 mg tablet,disintegrating 4 mg PO Q12H PRN (Reason: nausea and vomiting) 3 Days Qty: 9 0RF Discontinued cephalexin 500 mg tablet 500 mg PO BID 4 Days Qty: 8 0RF oxycodone 5 mg tablet 5 mg PO Q8H PRN (Reason: pain) Qty: 9 0RF Discharge Orders: Discharge Order (Routine); Ordered 04/08/24 Ordered By: Gala Diamond Admission Data Admit Date/Time: 04/06/24 14:12 Attending Provider: Gala Diamond Admit Provider: Diego Mauro Primary Care Provider: Khoa Cruz Other Providers: Yurdiia Peña; Pierce Bender I Other Interventions: Discharge Summary Assessment (RN) Last Done: 04/08/24 11:16 Hospital Stay Data Consultations 04/03/24 21:57 ED Decision to Admit Stat 04/04/24 07:12 Consult Gastroenterology Routine Procedures Performed Operation Date: 04/07/24 09:35 Actual Procedures p Robotic Laparoscopic Cholecystectomy(Not Applicable) - Len Tillman DO, FACS Diagnostic Imagining Performed 04/03/24 18:39 CT Abd and Pelvis [CT abd pelvis IV con only] Stat 04/04/24 [place] ERCP biliary ductal Routine 04/04/24 02:21 MRI MRCP [MR MRCP] Routine Pending Results Patient Have Any Pending Studies at Discharge: Yes Discharge Instructions Given to Patient (Per Discharging Provider) SPECIAL CARE INSTRUCTIONS: * You have skin glue over your incisions called dermabond. you may shower with this on. It will tend to dissolve and fall off within a couple weeks. Do not pick at the skin glue * You may shower . NO soaking in pools or baths for 2 weeks * No lifting greater than 10lbs. No strenuous exercise until cleared by surgeon. Light walking is accepted. * No driving while taking narcotic pain medication; wait at least 3 days * No drinking alcohol while taking narcotic pain medication * May use Tylenol over the counter for pain as tolerated. Do not exceed 3grams of Tylenol per 24 hours * Expect some swelling and bruising. * Diet- you may resume your regular diet Call your doctor if: * Temperature above 101 degrees, nausea/vomiting, fever/chills * Pain not relieved by pain medicine ordered * There is increased drainage or redness from any incision * You have any unanswered questions or concerns [phone]. FOLLOW UP VISIT: If not already scheduled, please call the office for a follow-up visit. Office Total Time Total Time Spent Total Time Spent (In Minutes): less than 30 minutes Coding Level of Care Code 10795 IN/OBS DISCH 30 MIN/LESS Diagnoses Choledocholithiasis K80.50 Obesity hypoventilation syndrome E66.2 Sleep apnea G47.30 Metabolic syndrome E88.81 Depression with anxiety F41.8 Morbid obesity with BMI of 60.0-69.9, adult E66.01; Z68.44
== END 2024-04-08 11:51 | disposition home or self-care (01) | DRG 418 ==
LOC: SUATTDRO → ED 18:18 → 2N 18:18 → SUATTDRO 04-04 00:32 → 2N 04-04 02:06 → 3N 04-05 21:38